=== PATIENT | female | born 1960 | race Caucasian/White ===

== ENCOUNTER 2017-04-01 14:21 | Emergency (ER) | payer BC, MEDICARE ==
[2017-04-01] MEDS ORDERED: Ranitidine 50 MG/2 ML SDV IV ONE (15:00)
[2017-04-01] MEDS ORDERED: amLODIPine 5 MG Tab PO ONE (15:54)
[2017-04-01 16:30] VITALS: BP 180/98
--- NOTE | 2017-04-01 17:50 | CR ---
DATE OF SERVICE: 04/01/17 CLINICAL DATA: chest pain AP PORTABLE CHEST Comparison is made to a prior exam dated 01/17/16. The patient has taken a very poor inspiration. The heart size is within normal limits. The lungs appear clear. No evidence of acute intrathoracic disease. [id number] [facility]
--- NOTE | 2017-04-03 22:09 | ER ---
CHIEF COMPLAINT: The patient entered the emergency room with chief complaint of chest pain. HISTORY OF PRESENT ILLNESS: The patient was transferred from clinic to the emergency room due to history of chest pain. She has had a negative coronary catheterization in the recent past. She did have a history of respiratory arrest and PEA. Her chest pain has been present for about three days. At first, it was associated with heartburn and epigastric discomfort. Today, she had 3 hours of chest pain, not associated with nausea, vomiting, dyspnea on exertion, shortness of breath, diaphoresis, palpitations, and her chest pain has resolved, however, her heartburn persists. REVIEW OF SYSTEMS: CONSTITUTIONAL: No fevers or weight changes. EYES: No vision changes. ENT: No congestion, sore throat, or ear pain. CARDIAC: Chest pressure but no palpitations, shortness of breath, dyspnea on exertion or diaphoresis. RESPIRATORY: No wheezing, coughing, or shortness of breath. GI: No diarrhea, constipation, rectal bleeding, nausea, or vomiting. : No dysuria. MUSCULOSKELETAL: No joint complaints. No decreased range of motion. No swollen joints. SKIN: No rashes or sores. NEUROLOGIC: No focal weakness or headache. PSYCH: Not currently depressed. PHYSICAL EXAMINATION: GENERAL: A well-developed, well-nourished, overweight female, alert and oriented x3. No acute distress. VITAL SIGNS: Upon admission show a blood pressure 174/88, pulse of 75, respirations 18, temperature 97.8, 98% saturated on room air. Her weight is 272 pounds. EYES: Show EOMI, PERRLA. ENT: Nose is clear. Throat is clear. TMs are normal bilaterally. NECK: Symmetrical. Nontender. No thyromegaly. LYMPH: Exam is negative. LUNGS: Clear and equal. HEART: Shows regular rate and rhythm. No murmurs, rubs, or gallops. No S3, no S4. ABDOMEN: Nontender without masses. Bowel sounds x4 are normal. No hepatosplenomegaly. Abdominal aorta is not prominent. There is an umbilical hernia that is easily reducible. ORTHOPEDIC: Shows normal gait, normal digits, no inflamed joints. No joints that have restrictions of motion. SKIN: Dry and warm. No rashes or sores. NEURO: Cranial nerves are intact. No focal motor, sensory, or cerebellar deficits. PSYCH: Exam is normal. ASSESSMENT: 1. Atypical chest pain. 2. Hypertension. 3. Uric acid crystals in the urine. 4. Chronic abdominal pain. PLAN: The patient will have a complete abdominal ultrasound. We will look for any kidney stones that might be present. We will obtain uric acid level and if elevated, start allopurinol. She should be sent to dietitian to go over diet and pH manipulation of her urine for prevention of kidney stones. In the ER, she was given IV Zantac for her epigastric discomfort. For her blood pressure, we will add Norvasc 5 mg a day and if necessary increase it on followup. The Norvasc will also take care of any possible coronary artery spasm that she may be getting. She does have sublingual nitroglycerin available to her. 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 She does have elevated cholesterol. We will start pravastatin 40 mg p.o. daily. She did not tolerate her simvastatin well due to myalgias. For her dyspepsia, I suggested she stay on ranitidine. She can take up to 300 mg b.i.d. because she does have issues with diabetes and hypertension and uric acid crystals in her urine, I would prefer to put her on medication such as the H2 blockers instead of a PPI to prevent any supplemental renal damage. The patient is discharged to home in good condition. She will follow up in clinic to review her progress. IRENE /[id number]
== END 2017-04-01 16:50 | disposition home or self-care (01) ==
LOC: LB.ED 14:21
DX: R07.89 Other chest pain (principal); R82.99 Other abnormal findings in urine; R10.9 Unspecified abdominal pain; G89.29 Other chronic pain; I10 Essential (primary) hypertension
CPT/HCPCS: 36415; 71010; 80053; 81001; 82150; 83690; 84478; 84484; 84550; 85025; 93005; 96374; 99285; A9270; J2780

== ENCOUNTER 2018-11-06 04:21 | Emergency (ER) | payer MEDICARE ==
[2018-11-06 04:37] VITALS: BP 155/70
[2018-11-06] MEDS ORDERED: Amoxicillin/Clavulanate K 875-125 MG Tab ONE (05:00)
[2018-11-06] MEDS ORDERED: cefTRIAXone 1 GM Vial IM ONE (05:43)
[2018-11-06] MEDS ORDERED: Ketorolac 60 MG/2 ML SDV IM ONE (05:43)
[2018-11-07] MEDS ORDERED: cefTRIAXone 1 GM Vial IM ONE (18:02)
[2018-11-07] MEDS ORDERED: cefTRIAXone 1 GM Vial ONE (18:13)
--- NOTE | 2018-11-12 08:18 | EDM.PDOC ---
ED HPI GENERAL MEDICAL PROBLEM - General Chief Complaint: General Stated Complaint: HEADACHE Time Seen by Provider: 11/06/18 04:45 Source of Information: Reports: Patient History Limitations: Reports: No Limitations - History of Present Illness INITIAL COMMENTS - FREE TEXT/NARRATIVE: This is a 57yo F with history of sebaceous cysts of the scalp and body. She has had multiple removed of the scalp. She comes in with a headache and believes it to be from the cyst. She states she tried to karen the cyst and now it hurts very much. Patient denies fever or other concerns. She states she has had this issue for the past week but did not call to make an appointment at clinic and the pain got worse over the past 2 days. 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: Other Medication(s) Other Treatments [employer]EVERAGE: Tramadol last at 10pm right side of head Pain Score (Numeric/FACES): 8 - Related Data Allergies Allergy/AdvReac Type Severity Reaction Status Date / Time lisinopril AdvReac Cough Verified 10/16/17 18:53 Home Meds: Home Meds Cyclobenzaprine HCl 10 mg PO QPM PRN 01/24/15 [History] Diclofenac Sodium [Voltaren] 50 mg PO TIDMEALS 07/26/17 [History] Losartan Potassium 25 mg PO DAILY 07/26/17 [History] Mirtazapine 30 mg PO QPM 07/26/17 [History] Nitroglycerin 0.4 mg SL ASDIRECTED PRN 07/26/17 [History] Pravastatin Sodium [Pravastatin (Pravachol)] 40 mg PO QPM 07/26/17 [History] Ranitidine HCl [Ranitidine] 150 mg PO BID PRN 07/26/17 [History] metFORMIN HCl [Metformin HCl] 1,000 mg PO BIDMEALS 07/26/17 [History] Past Medical History HEENT History: Reports: Allergic Rhinitis Cardiovascular History: Reports: Hypertension Respiratory History: Reports: Sleep Apnea Gastrointestinal History: Reports: GERD Genitourinary History: Reports: None Musculoskeletal History: Reports: Arthritis, Back Pain, Chronic, Fibromyalgia Neurological History: Reports: Other (See Below) Other Neuro History: restless leg syndrome Psychiatric History: Reports: Depression Endocrine/Metabolic History: Reports: Diabetes, Type II, Obesity/BMI 30+, Osteopenia - Past Surgical History Cardiovascular Surgical History: Reports: None GI Surgical History: Reports: None Social & Family History - Family History Family Medical History: Noncontributory - Caffeine Use Caffeine Use: Reports: Soda ED ROS GENERAL - Review of Systems Review Of Systems: ROS reveals no pertinent complaints other than HPI. - Physical Exam Exam: See Below Exam Limited By: No Limitations General Appearance: Alert, WD/WN, No Apparent Distress Ears: Normal External Exam Nose: Normal Inspection Throat/Mouth: Normal Inspection Head Exam: Other (masses of the scalp, only one with an excoriation lukasz, red area near the center of the cystic mass, no other warm but tender area of the skin 2x1cm) Neck: Normal Inspection Respiratory/Chest: No Respiratory Distress, Lungs Clear, Normal Breath Sounds Cardiovascular: Normal Peripheral Pulses, Regular Rate, Rhythm, No Edema GI/Abdominal: Normal Bowel Sounds, Soft, Non-Tender Course - Vital Signs Last Recorded V/S: Last Vital Signs Temp 37.3 C 11/06/18 04:32 Pulse 73 11/06/18 04:32 Resp 16 11/06/18 04:32 BP 155/70 H 11/06/18 04:32 Pulse Ox 95 11/06/18 04:32 - Orders/Labs/Meds Meds: Medications Discontinued Medications Generic Name Dose Route Start Last Admin Trade Name Freq PRN Reason Stop Dose Admin Amoxicillin/Clavulanate Potassium 20 tab 11/06/18 05:00 Augmentin 875 Mg/125 Mg .ROUTE 11/06/18 05:01 .STK-MED ONE Ceftriaxone Sodium 1 gm 11/06/18 05:43 11/06/18 05:47 Rocephin IM 11/06/18 05:44 1 gm ONETIME ONE Administration Ceftriaxone Sodium 1 gm 11/07/18 18:02 Rocephin IM 11/07/18 18:03 ONETIME ONE Ceftriaxone Sodium Confirm 11/07/18 18:13 Rocephin Administered 11/07/18 18:14 Dose 1 gm .ROUTE .STK-MED ONE Ketorolac Tromethamine 60 mg 11/06/18 05:43 11/06/18 05:46 Toradol IM 11/06/18 05:44 60 mg ONETIME ONE Administration Departure - Departure Time of Disposition: 05:30 Disposition: Home, Self-Care 01 Condition: Good Clinical Impression: Inflamed sebaceous cyst - Discharge Information Instructions: Amoxicillin; Clavulanic Acid tablets, Epidermal Cyst, Easy-to- Read Referrals: PCP,None [Primary Care Provider] - Forms: ED Department Discharge Additional Instructions: Finish the course of antibiotics and follow up in the clinic to get the cyst removed. Take food or milk with your antibiotic. Postpone the back procedure for Friday. - Problem List & Annotations (1) Inflamed sebaceous cyst SNOMED Code(s): 382649884 Code(s): L72.3 - SEBACEOUS CYST Status: Acute - Problem List Review Problem List Initiated/Reviewed/Updated: Yes - Assessment/Plan Plan: Patient counseled on care and management of possible start of an infected cyst. Discussed close monitoring and f/u in clinic for removal this week. Patient given antibiotics and discussed side effects and f/u. Patient to f/u as directed and as needed. Patient agrees to follow up in clinic this week for re- evaluation and management.
== END 2018-11-06 05:20 | disposition home or self-care (01) ==
LOC: LB.ED 04:21
DX: L72.3 Sebaceous cyst (principal); I10 Essential (primary) hypertension; E11.9 Type 2 diabetes mellitus without complications; K21.9 Gastro-esophageal reflux disease without esophagitis; Z79.84 Long term (current) use of oral hypoglycemic drugs; Z79.899 Other long term (current) drug therapy; Z88.8 Allergy status to other drugs, medicaments and biological substances
CPT/HCPCS: 10060; 96372; 99282-25; 99283; A9270-GY; J0696; J1885

== ENCOUNTER 2018-11-07 17:23 | Emergency (ER) | payer MEDICARE ==
[2018-11-07] MEDS ORDERED: cefTRIAXone 1 GM Vial IM ONE (18:01)
[2018-11-07] MEDS ORDERED: Lidocaine 1% 10 ML MDV ONE (18:20)
[2018-11-07] MEDS ORDERED: Acetaminophen/HYDROcodone 325-5 MG Tab ONE (18:30)
--- NOTE | 2018-11-07 20:19 | ER ---
DATE OF SERVICE: 11/07/2018 HISTORY OF PRESENT ILLNESS: A 57-year-old lady here with complaints of a cyst on top of her head that is getting worse. She was seen 2 days ago in the clinic and was put on Augmentin. She states that she does not feel it is helping. Her symptoms have gotten worse. The area of swelling and pain have started to spread and now she is having pain down the right side of her face to her jaw. The patient has not tried to drain this site. She states that she was planning on coming back into the clinic in a few days to have the cyst possibly removed. She has several other cysts, but they are not giving her trouble. OBJECTIVE: GENERAL APPEARANCE: The patient is awake and alert. No respiratory distress. She is uncomfortable because of the pain from the cyst. VITAL SIGNS: Reviewed. Temp is 99.1, blood pressure 155/70. HEENT: Examining the patient's scalp reveals the area of concern is on the right side of the patient's scalp in front of and well above the ear, right where the scalp starts to round off onto the top. The area is erythematous. There is obvious swelling here. The cyst itself looks like it is about 2 cm in diameter. There is some indurated area around it about another centimeter and half in all directions and then just tender skin radiating down to the patient's restorationist area. There is mild fluctuance with palpation. DIAGNOSIS: Infected cyst getting worse on antibiotics. TREATMENT PLAN: The site was swabbed with Betadine after which I injected 1% lidocaine locally for anesthesia. I gave this a few minutes to take effect after which using a 10 blade scalpel, I made a small incision centrally located and some thick green discharge was expressed. With mild pressure, I was able to express some more then it turned to just a bloody discharge. The patient held pressure against the site. After this for a few minutes, nursing staff will try to apply a dressing for tonight. Otherwise, she can just hold a gauze to her scalp with her hand, but I think a pressure dressing possibly with a circumferential wrap around the patient's head would be best. Rocephin 1 g will be given IM. She is to continue on the Augmentin. I will give her a few [place] tablets to take one tablet every 4-6 hours as needed for pain and she can apply warm packs to the area for 10 to 15 minutes every couple hours while awake into tomorrow. Followup is p.r.n. if her condition should get worse here in the emergency room. If her condition does get better, recheck should be with her primary care provider in the clinic next week. NING/JOHN /[id number] NORMA
== END 2018-11-07 18:31 | disposition home or self-care (01) ==
LOC: LB.ED 17:23
DX: L72.9 Follicular cyst of the skin and subcutaneous tissue, unspecified (principal)
CPT/HCPCS: 10060; 96372; 99282; 99282-25; A9270-GY; J0696; J2001

== ENCOUNTER 2018-12-13 09:49 | Emergency (ER) | payer MEDICARE | END 2018-12-13 10:25 | disposition home or self-care (01) | LOC: LB.ED 09:49 | DX: R29.90 Unspecified symptoms and signs involving the nervous system (principal) | CPT/HCPCS: 36415; 85025; 93005; 99283 ==

== ENCOUNTER → 2019-10-04 | Outpatient (CLI) | payer MEDICARE ==
--- NOTE | 2019-10-10 16:29 | MY ---
DATE OF SERVICE: 10/04/19 CLINICAL DATA: Encounter for screening mammogram for malignant neoplasm of breast BILATERAL MAMMOGRAMS: Comparison is made to a prior exam dated 10/05/18. The breasts are almost entirely fat. There is stable asymmetry. No change from the prior study. No evidence of malignancy. IMPRESSION: No evidence of malignancy. One year follow-up mammography is recommended. BI-RAD A: Mammogram - The breasts are almost entirely fatty ACR 1 - Negative Mammogram. The exam was reviewed with R2 CAD. [id number] [facility]
== END ==
LOC: LB.MAM 10:54
PROVIDERS: ATTEND Nurse Practitioner Family
DX: Z12.31 Encounter for screening mammogram for malignant neoplasm of breast (principal)
CPT/HCPCS: 77067

== ENCOUNTER → 2019-10-07 | Outpatient (CLI) | payer MEDICARE | LOC: LB.CLINIC 10:29 | PROVIDERS: ATTEND Nurse Practitioner Family | DX: N76.0 Acute vaginitis (principal) | CPT/HCPCS: 87210 ==

== ENCOUNTER 2019-12-29 04:44 | Emergency (ER) | payer MEDICARE ==
[2019-12-29 05:22] VITALS: BP 139/71; PULSE 63
[2019-12-29] MEDS ORDERED: methylPREDNISolone Sodium Succinate 125 MG/2 ML SDV IM ONE (05:32)
--- NOTE | 2019-12-29 06:17 | ER ---
HISTORY OF PRESENT ILLNESS: A 59-year-old lady here with complaints of a rash on her forehead and face that she has had since last Friday. She was seen on Friday , and diagnosed with rosacea. She was started on doxycycline. The rash has gotten worse. She is having more swelling and now her eye is swollen shut within the last few hours. The patient denies any shortness of breath or wheezing. She is not running a fever. She is not coughing. She states her rash is irritated and if she rubs it, it will be very uncomfortable, it also itches. The rash seems to go across the top of her head from the right side of her forehead to the left side of the back of her head and down her neck slightly. The patient was put on doxycycline on Friday, but she feels that her condition is slowly getting worse. OBJECTIVE: GENERAL APPEARANCE: The patient is awake and alert. No obvious distress. VITAL SIGNS: Reviewed as listed. HEENT: The patient has a blotchy erythematous rash with several raised areas encompassing the whole right side of her forehead and slightly across the midline of the forehead to the left side. Her eye is puffy and swollen shut. The eyelids are almost translucent. The rash goes down to the lower part of the patient's right facial cheek and there it stops. Examining the patient's scalp reveals she has a blotchy erythematous rash that goes throughout the scalp, but is most prominent on the left side of the back of her head and going down the left side of her neck down to just below the skull. There are no blisters, pustules, or scabs. The rash is not tender with light touch. The patient states she wants to scratch, but that has been painful. DIAGNOSIS: Urticaria type rash, Etiology unclear. TREATMENT PLAN: We will stop the doxycycline. I will give the patient Solu- Medrol 125 mg IM and start her on Benadryl 50 mg every 6 hours for 2 days. If she is feeling better over the next few hours, I will give her a script of oral prednisone that she can take and start it this afternoon. If her symptoms are not improving within the course of the next 8-10 hours, I want the patient to follow up for recheck later on this afternoon or no later than tomorrow. The patient has no further questions and agrees with the treatment plan. CRS/MODL /[id number] MTDD
== END 2019-12-29 05:45 | disposition home or self-care (01) ==
LOC: LB.ED 04:44
DX: L50.9 Urticaria, unspecified (principal)
CPT/HCPCS: 96372; 99282; 99283; J2930

== ENCOUNTER 2020-06-24 18:47 | Emergency (ER) | payer BC, MEDICARE, OTHER ==
[2020-06-24 20:08] VITALS: BP 156/65; PULSE 100
--- NOTE | 2020-06-24 20:32 | EDM.PDOC ---
ED HPI GENERAL MEDICAL PROBLEM - General Chief Complaint: Neurological Problem Stated Complaint: r/o kevinzure Time Seen by Provider: 06/24/20 19:50 Source of Information: Reports: Patient History Limitations: Reports: No Limitations - History of Present Illness INITIAL COMMENTS - FREE TEXT/NARRATIVE: Patient presents with concerns of COVID after a secondary possible exposure and an episode of chills and shaking last night. Patient had COVID testing in car and it is negative. She reports 6 months of bilateral hand tremors, but no neurological history. Last night she woke at 0100 with chills and shaking, she states this continued for 2 hours, she then took a warm shower and the shaking stopped. Denies any JACINTO, cough, ear pain, sore throat, known fevers, diaphoresis, CP, or SOB. She feels more tired today which prompted her ED visit. PMH of migraines without aura but does not follow with a neurologist. SHe is diabetic but did not check her blood sugar at that time, she doesn't feel that this episode was BS related. Headache Pain Score (Numeric/FACES): 4 - Related Data Allergies Allergy/AdvReac Type Severity Reaction Status Date / Time lisinopril AdvReac Cough Verified 06/24/20 20:03 Home Meds: Home Meds Cyclobenzaprine HCl 10 mg PO QPM PRN 01/24/15 [History] Losartan Potassium 25 mg PO DAILY 07/26/17 [History] Mirtazapine 15 mg PO QPM 07/26/17 [History] Nitroglycerin 0.4 mg SL ASDIRECTED PRN 07/26/17 [History] metFORMIN HCl [Metformin HCl] 1,000 mg PO BIDMEALS 07/26/17 [History] Metoprolol Succinate [Toprol Xl] 75 mg PO DAILY 06/24/20 [History] Pramipexole Di-HCl [Pramipexole ER] 1.5 mg PO DAILY 06/24/20 [History] Simvastatin 40 mg PO BEDTIME 06/24/20 [History] Venlafaxine HCl [Venlafaxine ER] 150 mg PO BID 06/24/20 [History] hydroCHLOROthiazide [Hydrochlorothiazide] 25 mg PO DAILY 06/24/20 [History] traMADol HCl [Tramadol HCl] 1 tab PO TID PRN 06/24/20 [History] Past Medical History HEENT History: Reports: Allergic Rhinitis Cardiovascular History: Reports: Hypertension Respiratory History: Reports: Sleep Apnea Gastrointestinal History: Reports: GERD Genitourinary History: Reports: None Musculoskeletal History: Reports: Arthritis, Back Pain, Chronic, Fibromyalgia Neurological History: Reports: Other (See Below) Other Neuro History: restless leg syndrome Psychiatric History: Reports: Depression Endocrine/Metabolic History: Reports: Diabetes, Type II, Obesity/BMI 30+, Osteopenia - Past Surgical History Cardiovascular Surgical History: Reports: None GI Surgical History: Reports: None Social & Family History - Family History Family Medical History: Noncontributory - Caffeine Use Caffeine Use: Reports: Coffee ED ROS GENERAL - Review of Systems Review Of Systems: See Below Constitutional: Reports: Chills, Fatigue. Denies: Night Sweats HEENT: Reports: No Symptoms Respiratory: Reports: No Symptoms, Cough Cardiovascular: Reports: No Symptoms, Lightheadedness Endocrine: Reports: No Symptoms GI/Abdominal: Reports: No Symptoms : Reports: No Symptoms Musculoskeletal: Reports: No Symptoms Skin: Reports: No Symptoms Neurological: Reports: No Symptoms. Denies: Confusion Psychiatric: Reports: No Symptoms Hematologic/Lymphatic: Reports: No Symptoms ED EXAM, GENERAL - Physical Exam Exam: See Below Exam Limited By: No Limitations General Appearance: Alert, No Apparent Distress Eye Exam: Bilateral Eye: Normal Inspection, PERRL Ears: Normal External Exam, Normal Canal, Normal TMs Ear Exam: Bilateral Ear: Auricle Normal, Canal Normal, TM normal Nose: Normal Inspection Throat/Mouth: Normal Inspection, Normal Lips, Normal Teeth, Normal Oropharynx, Normal Voice, No Airway Compromise Head: Atraumatic Neck: Normal Inspection, Non-Tender, Full Range of Motion Respiratory/Chest: No Respiratory Distress, Lungs Clear, Normal Breath Sounds Cardiovascular: Normal Peripheral Pulses, No Edema, No JVD, No Murmur, Tachycardia Peripheral Pulses: 3+: Radial (L), Radial (R), Posterior Tibial (L), Posterior Tibial (R), Dorsalis Pedis (L), Dorsalis Pedis (R) GI/Abdominal: Normal Bowel Sounds, Soft (Female) Exam: Deferred Rectal (Female) Exam: Deferred Back Exam: Normal Inspection, Full Range of Motion. No: CVA Tenderness (R), CVA Tenderness (L) Extremities: Normal Inspection, Normal Range of Motion, No Pedal Edema, Normal Capillary Refill Neurological: Alert, Oriented, CN II-XII Intact, Normal Gait, Normal Reflexes, No Motor/Sensory Deficits, Sensory/Motor Deficit Psychiatric: Normal Affect Skin Exam: Warm, Dry, Intact Lymphatic: No Adenopathy Course - Vital Signs Last Recorded V/S: Last Vital Signs Temp 96.8 F L 06/24/20 19:40 Pulse 100 06/24/20 19:40 Resp 16 06/24/20 19:40 BP 156/65 H 06/24/20 19:40 Pulse Ox 98 06/24/20 19:40 - Orders/Labs/Meds Labs: Laboratory Tests 06/24/20 Range/Units 18:55 COVID-19 (LUZ) Negative Departure - Departure Time of Disposition: 20:10 [facility]position: [facility] Condition: Good Clinical Impression: Shaking chills - Discharge Information *PRESCRIPTION DRUG MONITORING PROGRAM REVIEWED*: Not Applicable *COPY OF PRESCRIPTION DRUG MONITORING REPORT IN PATIENT CAROL: Not Applicable Instructions: Seizure, Adult, [id number] Forms: ED Department Discharge Additional Instructions: Monitor and record any seizure like activity that should occur. Follow up with Dr. León in clinic as planned, and discuss obtaining MRI of brain, as well as neurology consult. Should symptoms return, worsen, persist, return to ER for further evaluation as needed. Call with any questions. Sepsis Event Note (ED) - Focused Exam Vital Signs: Vital Signs Temp Pulse Resp BP Pulse Ox 06/24/20 19:40 96.8 F L 100 16 156/65 H 98
== END 2020-06-24 20:12 | disposition home or self-care (01) ==
LOC: LB.ED 18:47
DX: R68.83 Chills (without fever) (principal); I10 Essential (primary) hypertension; E11.9 Type 2 diabetes mellitus without complications; E66.9 Obesity, unspecified; F32.9 Major depressive disorder, single episode, unspecified; Z20.828 Contact with and (suspected) exposure to other viral communicable diseases; Z88.8 Allergy status to other drugs, medicaments and biological substances; Z79.899 Other long term (current) drug therapy
CPT/HCPCS: 99282; 99284; U0002

== ENCOUNTER 2020-07-01 18:10 | Observation (INO) | payer BC, MEDICARE ==
[2020-07-01] MEDS: Sodium Chloride 0.9% 500 ML IV ONE ×2 (19:00→20:10)
[2020-07-01] MEDS ORDERED: Acetaminophen 325 MG Tab PO ONE (19:17)
[2020-07-01] MEDS ORDERED: Acetaminophen 325 MG Tab ONE (19:27)
[2020-07-01] MEDS ORDERED: Potassium Chloride 20 MEQ Tab.ER PO ONE (19:53)
[2020-07-01] MEDS ORDERED: Potassium Chloride Riders 50 ML ONE (22:22)
[2020-07-01] MEDS: cefTRIAXone 1 GM in Sodium Chloride 0.9% 50 ML IV SCH (23:00)
[2020-07-01] MEDS ORDERED: Potassium Chloride Riders 10 MEQ in Premix Bag 1 BAG IV ONE (23:32)
[2020-07-01] MEDS: Acetaminophen 325 MG Tab PO ONE (23:38)
[2020-07-02] MEDS ORDERED: Acetaminophen 325 MG Tab ONE (00:37)
[2020-07-02] MEDS: Acetaminophen 325 MG Tab PO ONE ×2 (00:50→04:14)
[2020-07-02] MEDS ORDERED: Ketorolac 60 MG/2 ML SDV IVPUSH ONE (02:12)
[2020-07-02] MEDS ORDERED: Ondansetron 4 MG/2 ML SDV ONE (03:46)
[2020-07-02] MEDS ORDERED: Ondansetron 4 MG/2 ML SDV IVPUSH PRN (03:53)
[2020-07-02] MEDS ORDERED: traMADol 50 MG Tab ONE (09:57)
--- NOTE | 2020-07-02 10:01 | CR ---
Date of Service: 07/01/20 Clinical Data: cp, cough AP CHEST: Comparison is made to a prior exam dated 11/26/17. The patient has taken a poor inspiration. The heart size is normal. The lungs are clear. No pneumothorax. No pleural effusions. No evidence of acute intrathoracic disease. [id number] MTDD
[2020-07-02] MEDS ORDERED: Acetaminophen 500 MG Tab PO ONE (10:03)
[2020-07-02] MEDS ORDERED: traMADol 50 MG Tab PO ONE (10:03)
--- NOTE | 2020-07-02 13:16 | PCM.PN ---
- General Info Date of Service: 07/02/20 - Patient Data Vitals - Most Recent: Last Vital Signs Temp 38.7 C H 07/02/20 10:00 Pulse 92 07/02/20 08:00 Resp 18 07/02/20 08:00 BP 131/65 07/02/20 08:00 Pulse Ox 97 07/02/20 08:00 Weight - Most Recent: 120.837 kg Lab Results Last 24 Hours: Laboratory Results - last 24 hr 07/01/20 07/01/20 07/01/20 Range/Units 19:20 19: 19:20 WBC 7.3 (4.0-11.0) K/uL RBC 5.30 (3.80-5.80) M/uL Hgb 15.1 (11.5-16.5) g/dL Hct 44.7 (37.0-47.0) % MCV 84 (76-96) fL MCH 28.5 (27.0-32.0) pg MCHC 33.8 (31.0-35.0) g/dL RDW 13.3 (11.0-16.0) % Plt Count 204 (150-500) K/uL MPV 11.5 H (6.0-10.0) fL Neut % (Auto) 79.4 H (45.0-70.0) % Lymph % (Auto) 12.5 L (20.0-40.0) % Harrison % (Auto) 7.5 (3.0-10.0) % Eos % (Auto) 0.3 L (1.0-5.0) % Baso % (Auto) 0.3 (0.0-0.5) % Neut # (Auto) 5.80 (2.00-7.50) K/uL Lymph # (Auto) 0.91 L (1.50-4.00) K/uL Harrison # (Auto) 0.55 (0.20-0.80) K/uL Eos # (Auto) 0.02 L (0.04-0.40) K/uL Baso # (Auto) 0.02 (0.02-0.10) K/uL Sodium 134 L (136-145) mmol/L Potassium 2.8 L* (3.5-5.1) mmol/L Chloride 95 L (98-107) mmol/L Carbon Dioxide 34.5 H (21.0-32.0) mmol/L Anion Gap 7.3 (5.0-15.0) mmol/L BUN 11 D (8-26) mg/dL Creatinine 1.04 H D (0.55-1.02) mg/dL Est Cr Clr Drug Dosing 48.77 mL/min Estimated GFR (MDRD) 54 L (>60) MLS/MIN BUN/Creatinine Ratio 10.6 (6-25) Glucose 275 H (74-100) mg/dL Lactic Acid (0.4-2.0) mmol/L Calcium 9.0 (8.5-10.1) mg/dL Total Bilirubin 0.9 D (0.0-1.0) mg/dL AST 15 (15-37) U/L ALT 34 (12-78) U/L Alkaline Phosphatase 102 (46-116) U/L Troponin I < 0.017 (0.000-0.060) ng/mL Total Protein 7.1 (6.4-8.2) g/dL Albumin 3.1 L (3.4-5.0) g/dL Globulin 4.0 (2.2-4.2) g/dL Albumin/Globulin Ratio 0.8 (0.8-2.0) Urine Color Urine Appearance (CLEAR) Urine pH (5.0-8.0) Ur Specific Runge (1.003-1.030) Urine Protein (NEGATIVE) mg/dL Urine Glucose (UA) (NEGATIVE) mg/dL Urine Ketones (NEGATIVE) mg/dL Urine Occult Blood (NEGATIVE) Urine Nitrite (NEGATIVE) Urine Bilirubin (NEGATIVE) Urine Urobilinogen (0.2-1.0) E.U./dL Ur Leukocyte Esterase (NEGATIVE) Urine RBC /HPF Urine WBC /HPF Ur Epithelial Cells /HPF Urine Bacteria /HPF SARS CoV-2 RNA Rapid LUZ 07/01/20 07/01/20 07/01/20 Range/Units 19:25 19:40 20:10 WBC (4.0-11.0) K/uL RBC (3.80-5.80) M/uL Hgb (11.5-16.5) g/dL Hct (37.0-47.0) % MCV (76-96) fL MCH (27.0-32.0) pg MCHC (31.0-35.0) g/dL RDW (11.0-16.0) % Plt Count (150-500) K/uL MPV (6.0-10.0) fL Neut % (Auto) (45.0-70.0) % Lymph % (Auto) (20.0-40.0) % Harrison % (Auto) (3.0-10.0) % Eos % (Auto) (1.0-5.0) % Baso % (Auto) (0.0-0.5) % Neut # (Auto) (2.00-7.50) K/uL Lymph # (Auto) (1.50-4.00) K/uL Harrison # (Auto) (0.20-0.80) K/uL Eos # (Auto) (0.04-0.40) K/uL Baso # (Auto) (0.02-0.10) K/uL Sodium (136-145) mmol/L Potassium (3.5-5.1) mmol/L Chloride (98-107) mmol/L Carbon Dioxide (21.0-32.0) mmol/L Anion Gap (5.0-15.0) mmol/L BUN (8-26) mg/dL Creatinine (0.55-1.02) mg/dL Est Cr Clr Drug Dosing mL/min Estimated GFR (MDRD) (>60) MLS/MIN BUN/Creatinine Ratio (6-25) Glucose (74-100) mg/dL Lactic Acid 1.8 (0.4-2.0) mmol/L Calcium (8.5-10.1) mg/dL Total Bilirubin (0.0-1.0) mg/dL AST (15-37) U/L ALT (12-78) U/L Alkaline Phosphatase (46-116) U/L Troponin I (0.000-0.060) ng/mL Total Protein (6.4-8.2) g/dL Albumin (3.4-5.0) g/dL Globulin (2.2-4.2) g/dL Albumin/Globulin Ratio (0.8-2.0) Urine Color Yellow Urine Appearance Clear (CLEAR) Urine pH 6.0 (5.0-8.0) Ur Specific Runge >= 1.030 (1.003-1.030) Urine Protein 30 H (NEGATIVE) mg/dL Urine Glucose (UA) Negative (NEGATIVE) mg/dL Urine Ketones Trace H (NEGATIVE) mg/dL Urine Occult Blood Trace-intact H (NEGATIVE) Urine Nitrite Negative (NEGATIVE) Urine Bilirubin Small H (NEGATIVE) Urine Urobilinogen 0.2 (0.2-1.0) E.U./dL Ur Leukocyte Esterase Negative (NEGATIVE) Urine RBC 5-10 H /HPF Urine WBC Packed H /HPF Ur Epithelial Cells Few /HPF Urine Bacteria Few /HPF SARS CoV-2 RNA Rapid LUZ Negative 07/02/20 07/02/20 Range/Units 08:40 11:12 WBC (4.0-11.0) K/uL RBC (3.80-5.80) M/uL Hgb (11.5-16.5) g/dL Hct (37.0-47.0) % MCV (76-96) fL MCH (27.0-32.0) pg MCHC (31.0-35.0) g/dL RDW (11.0-16.0) % Plt Count (150-500) K/uL MPV (6.0-10.0) fL Neut % (Auto) (45.0-70.0) % Lymph % (Auto) (20.0-40.0) % Harrison % (Auto) (3.0-10.0) % Eos % (Auto) (1.0-5.0) % Baso % (Auto) (0.0-0.5) % Neut # (Auto) (2.00-7.50) K/uL Lymph # (Auto) (1.50-4.00) K/uL Harrison # (Auto) (0.20-0.80) K/uL Eos # (Auto) (0.04-0.40) K/uL Baso # (Auto) (0.02-0.10) K/uL Sodium 136 (136-145) mmol/L Potassium 3.5 D (3.5-5.1) mmol/L Chloride 96 L (98-107) mmol/L Carbon Dioxide 33.2 H (21.0-32.0) mmol/L Anion Gap 10.3 (5.0-15.0) mmol/L BUN 12 (8-26) mg/dL Creatinine 1.08 H (0.55-1.02) mg/dL Est Cr Clr Drug Dosing 46.97 mL/min Estimated GFR (MDRD) 52 L (>60) MLS/MIN BUN/Creatinine Ratio 11.1 (6-25) Glucose 269 H (74-100) mg/dL Lactic Acid (0.4-2.0) mmol/L Calcium 8.3 L (8.5-10.1) mg/dL Total Bilirubin 0.8 (0.0-1.0) mg/dL AST 33 (15-37) U/L ALT 38 (12-78) U/L Alkaline Phosphatase 108 (46-116) U/L Troponin I < 0.017 (0.000-0.060) ng/mL Total Protein 6.7 (6.4-8.2) g/dL Albumin 2.7 L (3.4-5.0) g/dL Globulin 4.0 (2.2-4.2) g/dL Albumin/Globulin Ratio 0.7 L (0.8-2.0) Urine Color Urine Appearance (CLEAR) Urine pH (5.0-8.0) Ur Specific Runge (1.003-1.030) Urine Protein (NEGATIVE) mg/dL Urine Glucose (UA) (NEGATIVE) mg/dL Urine Ketones (NEGATIVE) mg/dL Urine Occult Blood (NEGATIVE) Urine Nitrite (NEGATIVE) Urine Bilirubin (NEGATIVE) Urine Urobilinogen (0.2-1.0) E.U./dL Ur Leukocyte Esterase (NEGATIVE) Urine RBC /HPF Urine WBC /HPF Ur Epithelial Cells /HPF Urine Bacteria /HPF SARS CoV-2 RNA Rapid LUZ Med Orders - Current: Current Medications Ceftriaxone Sodium 1 gm/ (Sodium Chloride) 50 mls @ 200 mls/hr IV Q24H [facility] Last Admin: 07/01/20 23:00 Dose: 200 mls/hr Documented by: Ondansetron HCl (Zofran) 4 mg IVPUSH Q4H PRN PRN Reason: Nausea/Vomiting Last Admin: 07/02/20 03:50 Dose: 4 mg Documented by: Discontinued Medications Acetaminophen (Tylenol) 650 mg PO NOW ONE Stop: 07/01/20 19:18 Last Admin: 07/01/20 19:19 Dose: 650 mg Documented by: Acetaminophen (Tylenol) Confirm Administered Dose 650 mg .ROUTE .STK-MED ONE Stop: 07/01/20 19:28 Last Admin: 07/01/20 19:34 Dose: Not Given Documented by: Acetaminophen (Tylenol) 325 mg PO NOW ONE Stop: 07/01/20 22:29 Last Admin: 07/02/20 04:14 Dose: Not Given Documented by: Acetaminophen (Tylenol) Confirm Administered Dose 325 mg .ROUTE .STK-MED ONE Stop: 07/02/20 00:38 Last Admin: 07/02/20 03:25 Dose: Not Given Documented by: Acetaminophen (Tylenol Extra Strength) 1,000 mg PO NOW ONE Stop: 07/02/20 10:04 Last Admin: 07/02/20 10:15 Dose: 1,000 mg Documented by: Sodium Chloride (Normal Saline) 500 mls @ 500 mls/hr IV .BOLUS ONE Stop: 07/01/20 19:38 Last Admin: 07/01/20 20:10 Dose: 500 mls/hr Documented by: Potassium Chloride (Kcl 10 Meq In Water 50 Ml) Confirm Administered Dose 50 mls @ as directed .ROUTE .STK-MED ONE Stop: 07/01/20 22:23 Last Admin: 07/01/20 23:34 Dose: Not Given Documented by: Potassium Chloride 10 meq/ (Premix) 50 mls @ 25 mls/hr IV ONETIME ONE Stop: 07/02/20 01:31 Last Admin: 07/01/20 23:38 Dose: 25 mls/hr Documented by: Ketorolac Tromethamine (Toradol) 15 mg IVPUSH ONETIME ONE Stop: 07/02/20 02:13 Last Admin: 07/02/20 04:09 Dose: 15 mg Documented by: Ondansetron HCl (Zofran) Confirm Administered Dose 4 mg .ROUTE .STK-MED ONE Stop: 07/02/20 03:47 Last Admin: 07/02/20 04:10 Dose: Not Given Documented by: Potassium Chloride (Klor-Con M20) 40 meq PO ONETIME ONE Stop: 07/01/20 19:54 Last Admin: 07/01/20 20:03 Dose: 40 meq Documented by: Tramadol HCl (Ultram) Confirm Administered Dose 50 mg .ROUTE .STK-MED ONE Stop: 07/02/20 09:58 Last Admin: 07/02/20 10:28 Dose: Not Given Documented by: Tramadol HCl (Ultram) 50 mg PO ONETIME ONE Stop: 07/02/20 10:04 Last Admin: 07/02/20 10:03 Dose: 50 mg Documented by: Sepsis Event Note - Evaluation Sepsis Screening Result: Sepsis Risk - Focused Exam Vital Signs: Vital Signs Temp Pulse Resp BP Pulse Ox 07/02/20 10:00 38.7 C H 07/02/20 08:00 36.7 C 92 18 131/65 97 07/02/20 04:12 37.7 C 128 H 18 132/82 91 L 07/02/20 02:26 36.6 C 115 H 18 152/76 H 97 - Problem List & Annotations (1) Atypical chest pain SNOMED Code(s): 614207614 Code(s): R07.89 - OTHER CHEST PAIN Status: Acute Current Visit: No Onset Date: ~04/01/17 Annotation/Comment:: 04/01/17 - 1. Atypical chest pain, 2. Hypertension, 3. Uric acid crystals in the urine, 4. Chronic abdominal pain. (2) Hypertension SNOMED Code(s): 68585277 Code(s): I10 - ESSENTIAL (PRIMARY) HYPERTENSION Status: Acute Current Visit: No Onset Date: ~04/01/17 Annotation/Comment:: 04/01/17 - 1. Atypical chest pain, 2. Hypertension, 3. Uric acid crystals in the urine, 4. Chronic abdominal pain. - Problem List Review Problem List Initiated/Reviewed/Updated: Yes - Assessment Assessment:: Chest pain - Plan Plan:: [facility] Hospitalist CONSULTATION NOTE: eHospitalist was contacted by Leeanne Rayo NP with request of consultation for rounding support: Reason for consult: Rounding support HPI: Patient is a 59-year-old female with pmh of HTN, HLD, diabetes, depression/anxiety who was admitted last night for fevers, chest pain. Patient reports that she presented to the ED with complaints of chest pains, substernal, radiating to her right arm, 8 out of 10, worse with deep breaths, no other aggravating factors, no relieving factors. Was prescribed nitro in the past but does not know when or how to take it. Has not taken any aspirin or nitro at home. Says she has had chest pain on and off for several years, sometimes radiating to her back. Says the pain was not any different from her previous pain. Says she was seen by a chiropractor who felt that her pain was originating from her back muscles. Says she had some palpitations, dizziness and vertigo which are both chronic, shortness of breath that is new, says she was sweaty last night. Also had nausea and one episode of vomiting. Also reports cough for a week that is nonproductive. Endorses fevers and chills for 1 week, T-max at home was 100 F. Denies any diarrhea, says she has some abdominal discomfort and lower extremity edema. In regards to her heart history, patient reports that her heart stopped 4 years ago-says that was when she was in the hospital, says she received Narcan and got better, did not have any chest compressions or shocks. Had been following with a surgical pathologist to make sure her " heart was still working". Reports having an angiogram that was normal. Denies any history of heart failure. Says she needs a valve replacement for " 1 valve in the lower left". Unable to recall who her primary surgical pathologist is. Work-up in the ED included a normal WBC and hemoglobin, sodium 134, potassium 2.8 on admission (3.5 this morning), creatinine 1.04, normal lactic acid, normal LFTs, troponin X2 negative.UA with packed WBCs, 5-10 RBCs, negative leukocyte esterase, negative nitrites. SARS-CoV-2 RNA rapid test negative. Chest x-ray that was negative for acute intrathoracic disease. EKG from 07/02 with prolonged QTC 495ms, sinus rhythm, no ST or T wave changes suggestive of ischemia. Patient was started on IV Rocephin for UTI, given 40 mEq of oral potassium and 10 mEq IV potassium for hypokalemia. Home Medications: Cyclobenzaprine, hydrochlorothiazide, losartan, metformin, mirtazapine, pramipexole, simvastatin, metoprolol, tramadol, venlafaxine Pertinent Medical History: HTN, HLD, diabetes, depression/anxiety Pertinent Social History: Does not smoke, denies alcohol use, denies drug use. Exam (performed via interactive video with assistance of bedside nurse): General: alert, cooperative, no acute distress HEENT: PERRLA, oral mucosa pink and moist without erythema Lungs: Clear to auscultation bilaterally without crackles or wheezing CV: Regular rate and rhythm with 3-4 out of 5 systolic murmur Abd: Denies tenderness, does not exhibit signs of pain with palpation done by bedside nurse Ext: No pitting edema noted Skin: No rashes, 2 small bruises on forearms near recent blood draw sites Neuro: Alert and oriented x3, moving all extremities Labs and imaging as noted in HPI Assessment and Plan: Patient is a 59-year-old female with pmh of HTN, HLD, diabetes, depression/anxiety whom I was asked to see in consultation for rounding support. Patient was admitted last night for fevers, chest pain. Unable to see the EKG that was done on presentation to the ED repeat EKG from 07/02 was negative for acute ischemic changes. Troponin x2 have been negative so far. Pending repeat troponin. Patient denies chest pain at this time. Unclear what cardiac history patient has but does have a systolic murmur. #Chest pain -On and off, atypical. Would still warrant ischemic evaluation, recommend cardiology consult outpatient unless inpatient cardiology consultation is available. -Reviewed telemetry strips from last night, does show abnormalities with acute right QRS but this is only one lead -Follow-up repeat troponin. -Obtain repeat EKG with chest pain. -Continue telemetry -Correct electrolytes -Continue beta-olga, antihypertensives, statin -Hold off on Mirtazapine in the setting of prolonged Qtc. Avoid IV Zofran or phenergan for nausea. -Repeat EKG tomorrow to f/u of QTc prolongation. #Pyuria: Patient was started on IV Rocephin for possible UTI, subjective fevers. F/u urine cultures and tailor antibiotics accordingly. #Nausea and vomiting: avoid zofran or phenergan until Qtc improves. #HTN: Resume home HCTZ, losartan, metoprolol #HLD: Resume home simvastatin #Chronic back pain: Cyclobenzaprine and tramadol as needed #Depression, anxiety: Can resume venlafaxine. hold mirtazapine. Thank you for including [facility] in the patients care. This service is available for further assistance as requested by your care team by calling [phone].
[2020-07-02] MEDS ORDERED: Acetaminophen 500 MG Tab PO PRN (16:05)
[2020-07-02] MEDS ORDERED: metFORMIN 500 MG Tab PO SCH (17:00)
[2020-07-02] MEDS ORDERED: Cyclobenzaprine 10 MG Tab PO PRN (17:35)
[2020-07-02] MEDS: traMADol 50 MG Tab PO PRN ×2 (17:53→23:28)
--- NOTE | 2020-07-02 19:40 | PCM.SN.2 ---
- Free Text/Narrative Note: Due to patient's flucuating HR and EKG, she will be transfered to [place] for cardiology consult. Patient is agreeable to plan. Will have CT PE prior to transport. CT PE negative.
[2020-07-02] MEDS: cefTRIAXone 1 GM in Sodium Chloride 0.9% 50 ML IV SCH (23:27)
[2020-07-03 00:24] VITALS: BP 142/68; PULSE 113
--- NOTE | 2020-07-03 14:37 | CT ---
DATE OF SERVICE: 07/03/2020 CLINICAL DATA: Rule out PE Enhanced chest CT: Multi slice acquisition through the chest with IV contrast was performed. No evidence of PE. No pneumothorax. No pleural effusions. No aortic aneurysm or dissection. There are atelectatic changes in the dependent portion of both lungs. There are 2 subpleural nodules noted in the right upper lobe measuring 4 and 3 mm. The lungs are otherwise clear. If the patient is high risk consider 12 months follow-up. The heart size is normal. No significant pericardial effusion. There is subtle fat stranding adjacent to the aortic arch and proximal great vessels. Significance uncertain. Consider vasculitis. No hilar or mediastinal adenopathy. There is mild diffuse fatty infiltration of the liver. There is a 2.9 cm low- density lesion within upper pole of the left kidney. It does appear to have a mildly thickened wall. Ultrasound is recommended to further evaluate it. Impression: Negative for PE. Other findings as discussed above. MTDD
--- NOTE | 2020-07-06 12:18 | EDM.PDOC ---
ED HPI GENERAL MEDICAL PROBLEM - General Chief Complaint: General Stated Complaint: SOB Time Seen by Provider: 07/01/20 18:12 - History of Present Illness INITIAL COMMENTS - FREE TEXT/NARRATIVE: patient presents with 1 week history of fever, chills, cough, intermittent CP (not any different than her chronic CP of 6 months), SOB, and night sweats. Denies any diarrhea, or urinary symptoms. The chest pain increases with a deep breath or cough, but is nonproductive. had an episode of vomiting, but denies any abd pain or nausea at this time. Location: Reports: Chest Quality: Reports: Same as Previous Episode Severity: Mild Improves with: Reports: None Worsens with: Reports: Breathing, Movement Associated Symptoms: Reports: Chest Pain, Diaphoresis, Fever/Chills, Nausea/Vomiting, Shortness of Breath Headache Pain Score (Numeric/FACES): 5 - Related Data Allergies Allergy/AdvReac Type Severity Reaction Status Date / Time lisinopril AdvReac Cough Verified 06/24/20 20:03 Home Meds: Home Meds Cyclobenzaprine HCl 10 mg PO QPM PRN 01/24/15 [History] Losartan Potassium 25 mg PO DAILY 07/26/17 [History] Mirtazapine 15 mg PO QPM 07/26/17 [History] Nitroglycerin 0.4 mg SL ASDIRECTED PRN 07/26/17 [History] metFORMIN HCl [Metformin HCl] 1,000 mg PO BIDMEALS 07/26/17 [History] Metoprolol Succinate [Toprol Xl] 75 mg PO DAILY 06/24/20 [History] Pramipexole Di-HCl [Pramipexole ER] 1.5 mg PO DAILY 06/24/20 [History] Simvastatin 40 mg PO BEDTIME 06/24/20 [History] Venlafaxine HCl [Venlafaxine ER] 150 mg PO BID 06/24/20 [History] hydroCHLOROthiazide [Hydrochlorothiazide] 25 mg PO DAILY 06/24/20 [History] traMADol HCl [Tramadol HCl] 1 tab PO TID PRN 06/24/20 [History] Past Medical History HEENT History: Reports: Allergic Rhinitis Cardiovascular History: Reports: Hypertension Respiratory History: Reports: Sleep Apnea Gastrointestinal History: Reports: GERD Genitourinary History: Reports: None Musculoskeletal History: Reports: Arthritis, Back Pain, Chronic, Fibromyalgia Neurological History: Reports: Other (See Below) Other Neuro History: restless leg syndrome Psychiatric History: Reports: Depression Endocrine/Metabolic History: Reports: Diabetes, Type II, Obesity/BMI 30+, Osteopenia - Past Surgical History Cardiovascular Surgical History: Reports: None GI Surgical History: Reports: None Social & Family History - Family History Family Medical History: Noncontributory - Tobacco Use Smoking Status *Q: Never Smoker Second Hand Smoke Exposure: No - Caffeine Use Caffeine Use: Reports: Soda - Recreational Drug Use Recreational Drug Use: No ED ROS GENERAL - Review of Systems Review Of Systems: See Below Constitutional: Reports: Fever, Chills, Night Sweats, Diaphoresis HEENT: Reports: No Symptoms Respiratory: Reports: Shortness of Breath Cardiovascular: Reports: Chest Pain Endocrine: Reports: No Symptoms GI/Abdominal: Reports: Vomiting : Reports: No Symptoms Musculoskeletal: Reports: No Symptoms Skin: Reports: No Symptoms Neurological: Reports: No Symptoms Psychiatric: Reports: No Symptoms ED EXAM, GENERAL - Physical Exam Exam: See Below Exam Limited By: No Limitations General Appearance: Alert, No Apparent Distress Eye Exam: Bilateral Eye: PERRL Ears: Normal External Exam Nose: Normal Inspection Throat/Mouth: Normal Inspection, Normal Oropharynx, Normal Voice Head: Atraumatic Neck: Normal Inspection, Full Range of Motion Respiratory/Chest: No Respiratory Distress, Lungs Clear, Normal Breath Sounds, No Accessory Muscle Use. No: Respiratory Distress, Crackles, Wheezing Cardiovascular: Normal Peripheral Pulses, Regular Rate, Rhythm, No Edema, No JVD, Systolic Murmur GI/Abdominal: Normal Bowel Sounds, Soft, Non-Tender (Female) Exam: Deferred Rectal (Female) Exam: Deferred Back Exam: Normal Inspection Extremities: Normal Inspection, Normal Range of Motion, No Pedal Edema, Normal Capillary Refill Neurological: Alert, Oriented, Normal Cognition, Normal Gait Psychiatric: Normal Affect, Normal Mood Course - Vital Signs Last Recorded V/S: Last Vital Signs Temp 97.6 F 07/03/20 00:23 Pulse 113 H 07/03/20 00:23 Resp 18 07/03/20 00:23 BP 142/68 H 07/03/20 00:23 Pulse Ox 92 L 07/03/20 00:23 - Orders/Labs/Meds Labs: Laboratory Tests 07/01/20 07/01/20 07/01/20 Range/Units 17:19 19:20 19:20 WBC 7.3 (4.0-11.0) K/uL RBC 5.30 (3.80-5.80) M/uL Hgb 15.1 (11.5-16.5) g/dL Hct 44.7 (37.0-47.0) % MCV 84 (76-96) fL MCH 28.5 (27.0-32.0) pg MCHC 33.8 (31.0-35.0) g/dL RDW 13.3 (11.0-16.0) % Plt Count 204 (150-500) K/uL MPV 11.5 H (6.0-10.0) fL Neut % (Auto) 79.4 H (45.0-70.0) % Lymph % (Auto) 12.5 L (20.0-40.0) % [place] % (Auto) 7.5 (3.0-10.0) % Eos % (Auto) 0.3 L (1.0-5.0) % Baso % (Auto) 0.3 (0.0-0.5) % Neut # (Auto) 5.80 (2.00-7.50) K/uL Lymph # (Auto) 0.91 L (1.50-4.00) K/uL Kem[place] # (Auto) 0.55 (0.20-0.80) K/uL Eos # (Auto) 0.02 L (0.04-0.40) K/uL Baso # (Auto) 0.02 (0.02-0.10) K/uL Sodium 134 L (136-145) mmol/L Potassium 2.8 L* (3.5-5.1) mmol/L Chloride 95 L (98-107) mmol/L Carbon Dioxide 34.5 H (21.0-32.0) mmol/L Anion Gap 7.3 (5.0-15.0) mmol/L BUN 11 D (8-26) mg/dL Creatinine 1.04 H D (0.55-1.02) mg/dL Est Cr Clr Drug Dosing 48.77 mL/min Estimated GFR (MDRD) 54 L (>60) MLS/MIN BUN/Creatinine Ratio 10.6 (6-25) Glucose 275 H (74-100) mg/dL POC Glucose 241 H (74-110) mg/dL Lactic Acid (0.4-2.0) mmol/L Calcium 9.0 (8.5-10.1) mg/dL Total Bilirubin 0.9 D (0.0-1.0) mg/dL AST 15 (15-37) U/L ALT 34 (12-78) U/L Alkaline Phosphatase 102 (46-116) U/L Troponin I (0.000-0.060) ng/mL Total Protein 7.1 (6.4-8.2) g/dL Albumin 3.1 L (3.4-5.0) g/dL Globulin 4.0 (2.2-4.2) g/dL Albumin/Globulin Ratio 0.8 (0.8-2.0) Urine Color Urine Appearance (CLEAR) Urine pH (5.0-8.0) Ur Specific [place] (1.003-1.030) Urine Protein (NEGATIVE) mg/dL Urine Glucose (UA) (NEGATIVE) mg/dL Urine Ketones (NEGATIVE) mg/dL Urine Occult Blood (NEGATIVE) Urine Nitrite (NEGATIVE) Urine Bilirubin (NEGATIVE) Urine Urobilinogen (0.2-1.0) E.U./dL Ur Leukocyte Esterase (NEGATIVE) Urine RBC /HPF Urine WBC /HPF Ur Epithelial Cells /HPF Urine Bacteria /HPF SARS CoV-2 RNA Rapid LUZ 07/01/20 07/01/20 07/01/20 Range/Units 19:20 19:25 19:40 WBC (4.0-11.0) K/uL RBC (3.80-5.80) M/uL Hgb (11.5-16.5) g/dL Hct (37.0-47.0) % MCV (76-96) fL MCH (27.0-32.0) pg MCHC (31.0-35.0) g/dL RDW (11.0-16.0) % Plt Count (150-500) K/uL MPV (6.0-10.0) fL Neut % (Auto) (45.0-70.0) % Lymph % (Auto) (20.0-40.0) % Kemper % (Auto) (3.0-10.0) % Eos % (Auto) (1.0-5.0) % Baso % (Auto) (0.0-0.5) % Neut # (Auto) (2.00-7.50) K/uL Lymph # (Auto) (1.50-4.00) K/uL Kemper # (Auto) (0.20-0.80) K/uL Eos # (Auto) (0.04-0.40) K/uL Baso # (Auto) (0.02-0.10) K/uL Sodium (136-145) mmol/L Potassium (3.5-5.1) mmol/L Chloride (98-107) mmol/L Carbon Dioxide (21.0-32.0) mmol/L Anion Gap (5.0-15.0) mmol/L BUN (8-26) mg/dL Creatinine (0.55-1.02) mg/dL Est Cr Clr Drug Dosing mL/min Estimated GFR (MDRD) (>60) MLS/MIN BUN/Creatinine Ratio (6-25) Glucose (74-100) mg/dL POC Glucose (74-110) mg/dL Lactic Acid 1.8 (0.4-2.0) mmol/L Calcium (8.5-10.1) mg/dL Total Bilirubin (0.0-1.0) mg/dL AST (15-37) U/L ALT (12-78) U/L Alkaline Phosphatase (46-116) U/L Troponin I < 0.017 (0.000-0.060) ng/mL Total Protein (6.4-8.2) g/dL Albumin (3.4-5.0) g/dL Globulin (2.2-4.2) g/dL Albumin/Globulin Ratio (0.8-2.0) Urine Color Urine Appearance (CLEAR) Urine pH (5.0-8.0) Ur Specific [place] (1.003-1.030) Urine Protein (NEGATIVE) mg/dL Urine Glucose (UA) (NEGATIVE) mg/dL Urine Ketones (NEGATIVE) mg/dL Urine Occult Blood (NEGATIVE) Urine Nitrite (NEGATIVE) Urine Bilirubin (NEGATIVE) Urine Urobilinogen (0.2-1.0) E.U./dL Ur Leukocyte Esterase (NEGATIVE) Urine RBC /HPF Urine WBC /HPF Ur Epithelial Cells /HPF Urine Bacteria /HPF SARS CoV-2 RNA Rapid LUZ Negative 07/01/20 Range/Units 20:10 WBC (4.0-11.0) K/uL RBC (3.80-5.80) M/uL Hgb (11.5-16.5) g/dL Hct (37.0-47.0) % MCV (76-96) fL MCH (27.0-32.0) pg MCHC (31.0-35.0) g/dL RDW (11.0-16.0) % Plt Count (150-500) K/uL MPV (6.0-10.0) fL Neut % (Auto) (45.0-70.0) % Lymph % (Auto) (20.0-40.0) % Kemper % (Auto) (3.0-10.0) % Eos % (Auto) (1.0-5.0) % Baso % (Auto) (0.0-0.5) % Neut # (Auto) (2.00-7.50) K/uL Lymph # (Auto) (1.50-4.00) K/uL Kemper # (Auto) (0.20-0.80) K/uL Eos # (Auto) (0.04-0.40) K/uL Baso # (Auto) (0.02-0.10) K/uL Sodium (136-145) mmol/L Potassium (3.5-5.1) mmol/L Chloride (98-107) mmol/L Carbon Dioxide (21.0-32.0) mmol/L Anion Gap (5.0-15.0) mmol/L BUN (8-26) mg/dL Creatinine (0.55-1.02) mg/dL Est Cr Clr Drug Dosing mL/min Estimated GFR (MDRD) (>60) MLS/MIN BUN/Creatinine Ratio (6-25) Glucose (74-100) mg/dL POC Glucose (74-110) mg/dL Lactic Acid (0.4-2.0) mmol/L Calcium (8.5-10.1) mg/dL Total Bilirubin (0.0-1.0) mg/dL AST (15-37) U/L ALT (12-78) U/L Alkaline Phosphatase (46-116) U/L Troponin I (0.000-0.060) ng/mL Total Protein (6.4-8.2) g/dL Albumin (3.4-5.0) g/dL Globulin (2.2-4.2) g/dL Albumin/Globulin Ratio (0.8-2.0) Urine Color Yellow Urine Appearance Clear (CLEAR) Urine pH 6.0 (5.0-8.0) Ur Specific [place] >= 1.030 (1.003-1.030) Urine Protein 30 H (NEGATIVE) mg/dL Urine Glucose (UA) Negative (NEGATIVE) mg/dL Urine Ketones Trace H (NEGATIVE) mg/dL Urine Occult Blood Trace-intact H (NEGATIVE) Urine Nitrite Negative (NEGATIVE) Urine Bilirubin Small H (NEGATIVE) Urine Urobilinogen 0.2 (0.2-1.0) E.U./dL Ur Leukocyte Esterase Negative (NEGATIVE) Urine RBC 5-10 H /HPF Urine WBC Packed H /HPF Ur Epithelial Cells Few /HPF Urine Bacteria Few /HPF SARS CoV-2 RNA Rapid LUZ Meds: Medications Discontinued Medications Generic Name Dose Route Start Last Admin Trade Name Freq PRN Reason Stop Dose Admin Acetaminophen 650 mg 07/01/20 19:17 07/01/20 19:19 Tylenol PO 07/01/20 19:18 650 mg NOW ONE Administration Acetaminophen Confirm 07/01/20 19:27 07/01/20 19:34 Tylenol Administered 07/01/20 19:28 Not Given Dose 650 mg .ROUTE .STK-MED ONE Acetaminophen 325 mg 07/01/20 22:28 07/02/20 04:14 Tylenol PO 07/01/20 22:29 Not Given NOW ONE Acetaminophen Confirm 07/02/20 00:37 07/02/20 03:25 Tylenol Administered 07/02/20 00:38 Not Given Dose 325 mg .ROUTE .STK-MED ONE Acetaminophen 1,000 mg 07/02/20 10:03 07/02/20 10:15 Tylenol Extra Strength PO 07/02/20 10:04 1,000 mg NOW ONE Administration Acetaminophen 1,000 mg 07/02/20 16:05 07/02/20 16:28 Tylenol Extra Strength PO 1,000 mg Q6H PRN Administration Fever Cyclobenzaprine HCl 10 mg 07/02/20 17:35 Flexeril PO QPM PRN Muscle Spasm Sodium Chloride 500 mls @ 500 mls/hr 07/01/20 18:39 07/01/20 20:10 Normal Saline IV 07/01/20 19:38 500 mls/hr .BOLUS ONE Administration Ceftriaxone Sodium 1 gm/ 50 mls @ 200 mls/hr 07/01/20 22:15 07/02/20 23:27 Sodium Chloride IV 200 mls/hr Q24H MARIELENA Administration Potassium Chloride Confirm 07/01/20 22:22 07/01/20 23:34 Kcl 10 Meq In Water 50 Ml Administered 07/01/20 22:23 Not Given Dose 50 mls @ as directed .ROUTE .STK-MED ONE Potassium Chloride 10 meq/ 50 mls @ 25 mls/hr 07/01/20 23:32 07/01/20 23:38 Premix IV 07/02/20 01:31 25 mls/hr ONETIME ONE Administration Ketorolac Tromethamine 15 mg 07/02/20 02:12 07/02/20 04:09 Toradol IVPUSH 07/02/20 02:13 15 mg ONETIME ONE Administration Metformin HCl 1,000 mg 07/02/20 17:00 07/02/20 16:33 Glucophage PO 1,000 mg BIDMEALS MARIELENA Administration Ondansetron HCl Confirm 07/02/20 03:46 07/02/20 04:10 Zofran Administered 07/02/20 03:47 Not Given Dose 4 mg .ROUTE .STK-MED ONE Ondansetron HCl 4 mg 07/02/20 03:53 07/02/20 03:50 Zofran IVPUSH 4 mg Q4H PRN Administration Nausea/Vomiting Potassium Chloride 40 meq 07/01/20 19:53 07/01/20 20:03 Klor-Con M20 PO 07/01/20 19:54 40 meq ONETIME ONE Administration Tramadol HCl Confirm 07/02/20 09:57 07/02/20 10:28 Ultram Administered 07/02/20 09:58 Not Given Dose 50 mg .ROUTE .STK-MED ONE Tramadol HCl 50 mg 07/02/20 10:03 07/02/20 10:03 Ultram PO 07/02/20 10:04 50 mg ONETIME ONE Administration Tramadol HCl 50 mg 07/02/20 17:35 07/02/20 23:28 Ultram PO 50 mg TID PRN Administration Pain Departure - Departure Time of Disposition: 22:00 Disposition: Admitted As Inpatient 67 Clinical Impression: UTI, Urinary tract infectious disease Fever Qualifiers: Fever type: due to other condition Qualified Code(s): R50.81 - Fever presenting with conditions classified elsewhere - Discharge Information *PRESCRIPTION DRUG MONITORING PROGRAM REVIEWED*: Not Applicable *COPY OF PRESCRIPTION DRUG MONITORING REPORT IN PATIENT CAROL: Not Applicable Sepsis Event Note (ED) - Evaluation Sepsis Screening Result: No Definite Risk
== END 2020-07-03 00:45 ==
LOC: LB.ED 18:10 → LB.MS 20:32
PROVIDERS: ADMIT Nurse Practitioner; ATTEND Nurse Practitioner
DX: R07.89 Other chest pain (principal); R82.81 Pyuria; R11.2 Nausea with vomiting, unspecified; G89.29 Other chronic pain; M54.9 Dorsalgia, unspecified; R50.81 Fever presenting with conditions classified elsewhere; E78.5 Hyperlipidemia, unspecified; F32.9 Major depressive disorder, single episode, unspecified; F41.9 Anxiety disorder, unspecified; I10 Essential (primary) hypertension; Z20.828 Contact with and (suspected) exposure to other viral communicable diseases; G47.30 Sleep apnea, unspecified; K21.9 Gastro-esophageal reflux disease without esophagitis; E11.9 Type 2 diabetes mellitus without complications; E66.9 Obesity, unspecified; Z79.899 Other long term (current) drug therapy; Z79.84 Long term (current) use of oral hypoglycemic drugs; Z88.8 Allergy status to other drugs, medicaments and biological substances
CPT/HCPCS: 36415; 71045; 71260; 80053; 81001; 82962; 83605; 84484; 85025; 93005; A9270-GY; J0696; J1885; J2405; J3480; J7040; J7050; U0002

== ENCOUNTER 2020-10-04 07:40 | Emergency (ER) | payer BC, MEDICARE ==
--- NOTE | 2020-10-04 09:10 | EDM.PDOC ---
ED HPI GENERAL MEDICAL PROBLEM - General Stated Complaint: STOMACH PAIN Time Seen by Provider: 10/04/20 08:55 Source of Information: Reports: Patient History Limitations: Reports: No Limitations - History of Present Illness INITIAL COMMENTS - FREE TEXT/NARRATIVE: patient presented to the ER with a c/o SOB/cough since last night ( around midnight ). Denies fever or chills. Also reports chest discomfort from coughing. No sputum or phlegm. Reports that she has a h/o Aortic valve endocarditis and has a PICC line for which she is receiving Ampicillin QID and Rocephin. Had a OMER done showed EF 60% but severe AR. recommended by cardiac surgeon to undergo surgical procedure but given the lung infection - decision was to postpone until further stable. No fever or chills. Denies a h/o smoking. Reports she is on inhaler at home due to dyspnea. Was at admitted to OSH last week and she was told she might have pneumonia. Medical Records were ordered from OSH for review. No nausea or emesis, but also reports stomach upset. No diarrhea. Cough is worse at night. No h/o COPD. Onset: Sudden Onset Date: 10/03/20 Severity: Moderate Improves with: Reports: Medication, Movement Worsens with: Reports: Movement Context: Reports: Activity Associated Symptoms: Reports: Cough, Malaise, Shortness of Breath - Related Data Allergies Allergy/AdvReac Type Severity Reaction Status Date / Time lisinopril AdvReac Cough Verified 06/24/20 20:03 Home Meds: Home Meds Cyclobenzaprine HCl 10 mg PO QPM PRN 01/24/15 [History] Losartan Potassium 25 mg PO DAILY 07/26/17 [History] Mirtazapine 15 mg PO QPM 07/26/17 [History] Nitroglycerin 0.4 mg SL ASDIRECTED PRN 07/26/17 [History] metFORMIN HCl [Metformin HCl] 1,000 mg PO BIDMEALS 07/26/17 [History] Metoprolol Succinate [Toprol Xl] 75 mg PO DAILY 06/24/20 [History] Pramipexole Di-HCl [Pramipexole ER] 1.5 mg PO DAILY 06/24/20 [History] Simvastatin 40 mg PO BEDTIME 06/24/20 [History] Venlafaxine HCl [Venlafaxine ER] 150 mg PO BID 06/24/20 [History] hydroCHLOROthiazide [Hydrochlorothiazide] 25 mg PO DAILY 06/24/20 [History] traMADol HCl [Tramadol HCl] 1 tab PO TID PRN 06/24/20 [History] Past Medical History HEENT History: Reports: Allergic Rhinitis Cardiovascular History: Reports: Hypertension Respiratory History: Reports: Sleep Apnea Gastrointestinal History: Reports: GERD Genitourinary History: Reports: None Musculoskeletal History: Reports: Arthritis, Back Pain, Chronic, Fibromyalgia Neurological History: Reports: Other (See Below) Other Neuro History: restless leg syndrome Psychiatric History: Reports: Depression Endocrine/Metabolic History: Reports: Diabetes, Type II, Obesity/BMI 30+, Osteopenia - Past Surgical History Cardiovascular Surgical History: Reports: None GI Surgical History: Reports: None Social & Family History - Family History Family Medical History: No Pertinent Family History - Caffeine Use Caffeine Use: Reports: Soda ED ROS GENERAL - Review of Systems Review Of Systems: Comprehensive ROS is negative, except as noted in HPI. Constitutional: Reports: Malaise HEENT: Reports: No Symptoms Respiratory: Reports: Shortness of Breath, Cough Cardiovascular: Reports: Dyspnea on Exertion, Edema : Reports: No Symptoms Neurological: Reports: No Symptoms Psychiatric: Reports: No Symptoms Hematologic/Lymphatic: Reports: No Symptoms ED EXAM, GENERAL - Physical Exam Exam: See Below Free Text/Narrative:: upon arrival to the ER - it was noted her O2 sat to be in the high 80's. ( 88- 89% on RA ) - up to 93% on 2-3 lit O2 by NC. in mild resp distress, but no fever. Good BP.No tachycardia. EKG - NSR, no acute ischemic changes. CXR - concerns for b/l edema, and possible infiltrates in the right side ? Right middle lobe. Labs were ordered including CBC, CMP, Trop, Dimer. Covid-19 test is negative. Exam Limited By: No Limitations General Appearance: Alert, Mild Distress Ears: Normal External Exam Nose: Normal Inspection Throat/Mouth: Normal Inspection Head: Atraumatic Respiratory/Chest: Respiratory Distress, Crackles Cardiovascular: Regular Rate, Rhythm, Other (b/l LEs edema) Course - Vital Signs Last Recorded V/S: Last Vital Signs Temp 36.9 C 10/04/20 09:34 Pulse 105 H 10/04/20 10:17 Resp 20 10/04/20 10:17 BP 121/59 L 10/04/20 10:17 Pulse Ox 92 L 10/04/20 10:17 - Orders/Labs/Meds Orders: Active Orders 24 hr Category Date Time Status EKG Documentation Completion [RC] ASDIRECTED Care 10/04/20 09:03 Active RT Aerosol Therapy [RC] ASDIRECTED Care 10/04/20 10:25 Ordered Chest 2V [CR] Stat Exams 10/04/20 09:03 Taken CORONAVIRUS COVID-19 RAPID [MOLEC] Stat Lab 10/04/20 09:07 Ordered Labs: Laboratory Tests 10/04/20 10/04/20 10/04/20 Range/Units 09:03 09:03 09:07 WBC 5.6 (4.0-11.0) K/uL RBC 4.18 (3.80-5.80) M/uL Hgb 11.0 L D (11.5-16.5) g/dL Hct 34.5 L D (37.0-47.0) % MCV 83 (76-96) fL MCH 26.3 L (27.0-32.0) pg MCHC 31.9 (31.0-35.0) g/dL RDW 16.4 H (11.0-16.0) % Plt Count 228 (150-500) K/uL MPV 9.8 (6.0-10.0) fL Neut % (Auto) 77.0 H (45.0-70.0) % Lymph % (Auto) 11.4 L (20.0-40.0) % Cherry % (Auto) 8.2 (3.0-10.0) % Eos % (Auto) 3.0 (1.0-5.0) % Baso % (Auto) 0.4 (0.0-0.5) % Neut # (Auto) 4.33 (2.00-7.50) K/uL Lymph # (Auto) 0.64 L (1.50-4.00) K/uL Cherry # (Auto) 0.46 (0.20-0.80) K/uL Eos # (Auto) 0.17 (0.04-0.40) K/uL Baso # (Auto) 0.02 (0.02-0.10) K/uL D-Dimer, Quantitative (0-400) ng/mL Sodium 139 (136-145) mmol/L Potassium 3.5 (3.5-5.1) mmol/L Chloride 102 (98-107) mmol/L Carbon Dioxide 28.7 (21.0-32.0) mmol/L Anion Gap 11.8 (5.0-15.0) mmol/L BUN 9 D (8-26) mg/dL Creatinine 0.77 (0.55-1.02) mg/dL Est Cr Clr Drug Dosing 68.77 mL/min Estimated GFR (MDRD) > 60 (>60) MLS/MIN BUN/Creatinine Ratio 11.7 (6-25) Glucose 211 H (74-100) mg/dL Calcium 8.9 (8.5-10.1) mg/dL Total Bilirubin 0.5 D (0.0-1.0) mg/dL AST 15 (15-37) U/L ALT 21 (12-78) U/L Alkaline Phosphatase 90 (46-116) U/L Troponin I (0.000-0.060) ng/mL B-Natriuretic Peptide (0-125) pg/mL Total Protein 6.3 L (6.4-8.2) g/dL Albumin 2.6 L (3.4-5.0) g/dL Globulin 3.7 (2.2-4.2) g/dL Albumin/Globulin Ratio 0.7 L (0.8-2.0) SARS CoV-2 RNA Rapid LUZ Negative 10/04/20 10/04/20 Range/Units 09:07 09:07 WBC (4.0-11.0) K/uL RBC (3.80-5.80) M/uL Hgb (11.5-16.5) g/dL Hct (37.0-47.0) % MCV (76-96) fL MCH (27.0-32.0) pg MCHC (31.0-35.0) g/dL RDW (11.0-16.0) % Plt Count (150-500) K/uL MPV (6.0-10.0) fL Neut % (Auto) (45.0-70.0) % Lymph % (Auto) (20.0-40.0) % Cherry % (Auto) (3.0-10.0) % Eos % (Auto) (1.0-5.0) % Baso % (Auto) (0.0-0.5) % Neut # (Auto) (2.00-7.50) K/uL Lymph # (Auto) (1.50-4.00) K/uL Cherry # (Auto) (0.20-0.80) K/uL Eos # (Auto) (0.04-0.40) K/uL Baso # (Auto) (0.02-0.10) K/uL D-Dimer, Quantitative 619 H (0-400) ng/mL Sodium (136-145) mmol/L Potassium (3.5-5.1) mmol/L Chloride (98-107) mmol/L Carbon Dioxide (21.0-32.0) mmol/L Anion Gap (5.0-15.0) mmol/L BUN (8-26) mg/dL Creatinine (0.55-1.02) mg/dL Est Cr Clr Drug Dosing mL/min Estimated GFR (MDRD) (>60) MLS/MIN BUN/Creatinine Ratio (6-25) Glucose (74-100) mg/dL Calcium (8.5-10.1) mg/dL Total Bilirubin (0.0-1.0) mg/dL AST (15-37) U/L ALT (12-78) U/L Alkaline Phosphatase (46-116) U/L Troponin I 0.037 D (0.000-0.060) ng/mL B-Natriuretic Peptide 2285 H D (0-125) pg/mL Total Protein (6.4-8.2) g/dL Albumin (3.4-5.0) g/dL Globulin (2.2-4.2) g/dL Albumin/Globulin Ratio (0.8-2.0) SARS CoV-2 RNA Rapid LUZ Meds: Medications Discontinued Medications Generic Name Dose Route Start Last Admin Trade Name Freq PRN Reason Stop Dose Admin Albuterol/Ipratropium 3 ml 10/04/20 10:25 10/04/20 10:27 Duoneb 3.0-0.5 Mg/3 Ml NEB 10/04/20 10:26 3 ml STAT ONE Administration Albuterol/Ipratropium Confirm 10/04/20 10:36 Duoneb 3.0-0.5 Mg/3 Ml Administered 10/04/20 10:37 Dose 3 ml .ROUTE .STK-MED ONE Furosemide 40 mg 10/04/20 10:53 10/04/20 10:58 Lasix IVPUSH 10/04/20 10:54 40 mg NOW ONE Administration - Re-Assessments/Exams Free Text/Narrative Re-Assessment/Exam: 10/04/20 10:29 duoneb was given - felt better. O2 up to 95% on 2 lit by NC IV lasix 40mg was given due to signs of CHF. discussed the case with her ID doctor at [facility] who filled me up on her PMHs and agreed with my plan to transfer the patient to a higher level of care facility. 10/04/20 10:31 Patient agreed with the plan 10/04/20 10:59 d/w the hospitalist Dr. Valdovinos who agreed to accept the patient Departure - Departure Time of Disposition: 11:00 Disposition: DC/Tfer to Acute Hospital 02 Condition: Fair Clinical Impression: CHF, Congestive heart failure, Hypoxemia, Pneumonia - Discharge Information *PRESCRIPTION DRUG MONITORING PROGRAM REVIEWED*: Not Applicable *COPY OF PRESCRIPTION DRUG MONITORING REPORT IN PATIENT CAROL: Not Applicable Referrals: PCP,None [Primary Care Provider] - Sepsis Event Note (ED) - Focused Exam Vital Signs: Vital Signs Temp Pulse Resp BP Pulse Ox 10/04/20 10:17 105 H 20 121/59 L 92 L 10/04/20 09:34 36.9 C 113 H 18 151/70 H 89 L 10/04/20 08:51 36.9 C 113 H 18 151/70 H 89 L - Problem List & Annotations (1) CHF, Congestive heart failure SNOMED Code(s): 48096541 Code(s): I50.9 - HEART FAILURE, UNSPECIFIED Status: Acute Priority: Medium Current Visit: Yes (2) Hypoxemia SNOMED Code(s): 984802894 Code(s): R09.02 - HYPOXEMIA Status: Acute Priority: Medium Current Visit: Yes (3) Pneumonia SNOMED Code(s): 537334745 Code(s): J18.9 - PNEUMONIA, UNSPECIFIED ORGANISM Status: Acute Priority: Medium Current Visit: Yes - Problem List Review Problem List Initiated/Reviewed/Updated: Yes - My Orders Last 24 Hours: My Active Orders 10/04/20 09:03 EKG Documentation Completion [RC] ASDIRECTED Chest 2V [CR] Stat 10/04/20 09:07 CORONAVIRUS COVID-19 RAPID [MOLEC] Stat 10/04/20 10:25 RT Aerosol Therapy [RC] ASDIRECTED - Assessment/Plan Last 24 Hours: My Active Orders 10/04/20 09:03 EKG Documentation Completion [RC] ASDIRECTED Chest 2V [CR] Stat 10/04/20 09:07 CORONAVIRUS COVID-19 RAPID [MOLEC] Stat 10/04/20 10:25 RT Aerosol Therapy [RC] ASDIRECTED
[2020-10-04] MEDS ORDERED: Albuterol/Ipratropium 3.0-0.5 MG/3 ML Neb Soln NEB ONE (10:25)
[2020-10-04] MEDS ORDERED: Albuterol/Ipratropium 3.0-0.5 MG/3 ML Neb Soln ONE (10:36)
[2020-10-04] MEDS ORDERED: Furosemide 40 MG/4 ML VIAL IVPUSH ONE (10:53)
[2020-10-04] MEDS ORDERED: Furosemide 40 MG/4 ML VIAL ONE (11:08)
[2020-10-04 11:11] VITALS: BP 145/70; PULSE 103
--- NOTE | 2020-10-04 11:44 | CR ---
DATE OF SERVICE: 10/04/2020 CLINICAL DATA: SOB PA and lateral chest: Comparison is made to a prior exam dated 02 October 2020. Patient has taken a poor inspiration. The right sided central venous catheter is unchanged in position. The heart size is stable. The pulmonary vasculature appears more prominent than on the prior study. There are poorly defined infiltrates with peribronchial cuffing in the perihilar regions bilaterally, left greater than right, that have progressed from the prior study. There is also infiltrate and consolidation in the left retrocardiac region. The exam is otherwise unchanged from the prior. No pleural effusions. No pneumothorax. MTDD
== END 2020-10-04 11:23 ==
LOC: LB.ED 07:40
DX: I11.0 Hypertensive heart disease with heart failure (principal); I50.9 Heart failure, unspecified; J18.9 Pneumonia, unspecified organism; R09.02 Hypoxemia; E11.9 Type 2 diabetes mellitus without complications; G25.81 Restless legs syndrome; E66.9 Obesity, unspecified; Z68.41 Body mass index [BMI] 40.0-44.9, adult; Z79.84 Long term (current) use of oral hypoglycemic drugs; Z79.899 Other long term (current) drug therapy; Z20.828 Contact with and (suspected) exposure to other viral communicable diseases; Z88.8 Allergy status to other drugs, medicaments and biological substances
CPT/HCPCS: 36415; 71046; 80053; 83880; 84484; 85025; 85379; 93005; 96374; 99285-25; J1940; J7620-GY; U0002

== ENCOUNTER 2020-10-19 09:51 | Inpatient (IN) | payer BC, MEDICARE ==
[2020-10-19] MEDS ORDERED: Nicotine 14 MG/24 Hr Patch TRDERM SCH (15:45)
--- NOTE | 2020-10-19 16:30 | PCM.HP.2 ---
H&P History of Present Illness - General Date of Service: 10/19/20 Admit Problem/Dx: Admission Diagnosis/Problem Admission Diagnosis/Problem Endocarditis Source of Information: Patient, Family, Old Records History Limitations: Reports: No Limitations - History of Present Illness Initial Comments - Free Text/Narative: patient here for a swing bed status. Transfer from OSH facility after AVR. with a h/o anxiety, depression, DMT2, HTN, obesity and tobacco use. In Aug 2020, patient encountered COVID PNA, and UTI ( enterococcus faecalis, Prot. Mirabilis and E. Coli. ). 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 She later underwent progressing of CHF due to AV regurg, which necessitated a repair on 10/10/20. Post-op, patient was restarted on Ampicillin IV q4hr via PICC line. She also had A.Fib which was controlled with Amiodarone. No ACx were started due to high bleeding risk. - Related Data Allergies/Adverse Reactions: Allergies Allergy/AdvReac Type Severity Reaction Status Date / Time lisinopril AdvReac Cough Verified 06/24/20 20:03 Home Medications: Home Meds Cyclobenzaprine HCl 10 mg PO QPM 01/24/15 [History] Losartan Potassium 12.5 mg PO DAILY 07/26/17 [History] Mirtazapine 15 mg PO QPM 07/26/17 [History] Nitroglycerin 0.4 mg SL ASDIRECTED PRN 07/26/17 [History] metFORMIN HCl [Metformin HCl] 1,000 mg PO BIDMEALS 07/26/17 [History] Metoprolol Succinate [Toprol Xl] 50 mg PO DAILY 06/24/20 [History] Pramipexole Di-HCl [Pramipexole ER] 1.5 mg PO DAILY 06/24/20 [History] Simvastatin 40 mg PO BEDTIME 06/24/20 [History] Venlafaxine HCl [Venlafaxine ER] 300 mg PO BEDTIME 06/24/20 [History] hydroCHLOROthiazide [Hydrochlorothiazide] 25 mg PO DAILY 06/24/20 [History] traMADol HCl [Tramadol HCl] 1 tab PO Q6HR PRN MDD 400 06/24/20 [History] Past Medical History HEENT History: Reports: Allergic Rhinitis Cardiovascular History: Reports: Hypertension Respiratory History: Reports: Sleep Apnea Gastrointestinal History: Reports: GERD Genitourinary History: Reports: None Musculoskeletal History: Reports: Arthritis, Back Pain, Chronic, Fibromyalgia Neurological History: Reports: Other (See Below) Other Neuro History: restless leg syndrome Psychiatric History: Reports: Depression Endocrine/Metabolic History: Reports: Diabetes, Type II, Obesity/BMI 30+, Osteopenia - Past Surgical History Cardiovascular Surgical History: Reports: None GI Surgical History: Reports: None Other GI Surgeries/Procedures: umbilical hernia repair Female Surgical History: Reports: D&C, Hysterectomy, Lithotripsy/ESWL Social & Family History - Family History Family Medical History: No Pertinent Family History - Caffeine Use Caffeine Use: Reports: None H&P Review of Systems - Review of Systems: Review Of Systems: See Below General: Reports: Fatigue, Weight Gain HEENT: Reports: No Symptoms Pulmonary: Reports: Shortness of Breath (on exertion) Cardiovascular: Reports: Dyspnea on Exertion, Edema. Denies: Chest Pain Gastrointestinal: Reports: No Symptoms Genitourinary: Reports: No Symptoms Musculoskeletal: Reports: Back Pain Skin: Reports: Wound Neurological: Reports: No Symptoms Exam - Exam Exam: See Below - Vital Signs Vital Signs: Last Vital Signs Temp 36.2 C 10/19/20 15:32 Pulse 70 10/19/20 15:32 Resp 20 10/19/20 15:32 BP 138/49 L 10/19/20 15:32 Pulse Ox 99 10/19/20 15:32 - Exam Quality Assessment: Supplemental Oxygen General: Alert, Oriented, Cooperative HEENT: PERRLA, Conjunctiva Clear, EOMI Lungs: Clear to Auscultation, Normal Respiratory Effort Cardiovascular: Regular Rate, Regular Rhythm GI/Abdominal Exam: Normal Bowel Sounds, Soft, Non-Tender Extremities: Pedal Edema Skin: Other (sternum incision - healing well, closed with absortable sutures and a glue. The upper quarter of the wound is a little erythematous compared to the rest of the wound. no drainage and no loculation found.minimal TTP) Neurological: Cranial Nerves Intact Neuro Extensive - Mental Status: Alert, Oriented x3, Normal Mood/Affect, Normal Cognition Psychiatric: Alert, Normal Affect, Normal Mood Sepsis Event Note - Focused Exam Vital Signs: Vital Signs Temp Pulse Resp BP Pulse Ox 10/19/20 15:32 36.2 C 70 20 138/49 L 99 *Q Meaningful Use (ADM) - VTE *Q VTE Pharmacological Contraindications *Q: Risk of Bleeding VTE Anticoagulation Contraindications: Medical/Procedure Contrai - Problem List (1) CHF, Congestive heart failure SNOMED Code(s): 83852167 ICD Code: I50.9 - HEART FAILURE, UNSPECIFIED Status: Acute Priority: Medium Current Visit: No (2) Hypertension SNOMED Code(s): 38392673 ICD Code: I10 - ESSENTIAL (PRIMARY) HYPERTENSION Status: Acute Current Visit: No Onset Date: ~04/01/17 Problem Details: 04/01/17 - 1. Atypical chest pain, 2. Hypertension, 3. Uric acid crystals in the urine, 4. Chronic abdominal pain. Qualifiers: Hypertension type: essential hypertension Qualified Code(s): I10 - Essential (primary) hypertension (3) Pneumonia SNOMED Code(s): 363052994 ICD Code: J18.9 - PNEUMONIA, UNSPECIFIED ORGANISM Status: Acute Priority: Medium Current Visit: No Problem List Initiated/Reviewed/Updated: Yes Orders Last 24hrs: Active Orders 24 hr Category Date Time Status Patient Status [ADT] Routine ADT 10/19/20 15:32 Active Oxygen Therapy [RC] PRN Care 10/19/20 15:32 Active VTE/DVT Education [RC] Per Unit Routine Care 10/19/20 15:32 Active Vital Signs [RC] PER UNIT ROUTINE Care 10/19/20 15:32 Active Regular Diet [DIET] Diet 10/19/20 Dinner Ordered Nicotine [Habitrol] Med 10/19/20 15:45 Ordered 14 mg TRDERM DAILY Resuscitation Status Routine Resus Stat 10/19/20 15:32 Ordered Medication Orders Nicotine (Habitrol) 14 mg TRDERM DAILY [facility]IELENA Assessment/Plan Comment:: 1- post-op atelectasis: aggressive pulm toileting: IS, EzPAP. Nebs as needed CPAP at night O2 supplementation as needed 2- Acute post-op Anemia: related to blood loss and hemodilution. Received tx at OSH Will monitor 3- h/o post-op afib: on amiodarone PO now 4- DMT2: accucheck with meals resuming insulin home dose adjust as needed 5- Recent COVID PNA: resolved resp. training and IS 6- generalized weakness: PT/OT eval 7- s/p AVRepair for AVRegurg. 2/2 infective endocarditis: On Ampicillin 2bm q4 hrs and Rocephin q12 hrs via PICC line 8- Diet: cardiac diet as tolerating. fluid restriction to 1.5L/24hr 9- activity: encourage ambulation x3/day 10- PICC line care - Mortality Measure Prognosis:: Good
[2020-10-19] MEDS: cefTRIAXone 2 GM in Sodium Chloride 0.9% 100 ML IV SCH (17:23)
[2020-10-19] MEDS ORDERED: 50% Dextrose in Water 50 ML Syringe IVPUSH PRN (18:13)
[2020-10-19] MEDS ORDERED: Glucagon,Human Recombinant 1 MG Vial IM PRN (18:13)
[2020-10-19] MEDS: Aspirin 325 MG Tab.EC PO SCH (19:22)
[2020-10-19] MEDS: Sodium Chloride 0.9% 10 ML Syringe FLUSH PRN ×2 (19:30→20:10)
[2020-10-19] MEDS: Ampicillin 2 GM in Sodium Chloride 0.9% 100 ML IV SCH ×2 (19:35→23:24)
[2020-10-19] MEDS: Bumetanide 1 MG Tab PO SCH (19:38)
[2020-10-19] MEDS: Ferrous Sulfate 325 MG Tab PO SCH (19:38)
[2020-10-19] MEDS: Gabapentin 100 MG Cap PO SCH (19:38)
[2020-10-19] MEDS: Cyclobenzaprine 10 MG Tab PO SCH (19:38)
[2020-10-19] MEDS: Venlafaxine 150 MG Cap.ER PO SCH (19:39)
[2020-10-19] MEDS: traMADol 50 MG Tab PO PRN (19:41)
[2020-10-19] MEDS: Potassium Chloride 20 MEQ Tab.ER PO SCH (19:53)
[2020-10-19] MEDS: Magnesium Oxide 400 MG Tab PO SCH (19:53)
[2020-10-19] MEDS ORDERED: Simvastatin 40 MG Tab PO SCH (20:00)
[2020-10-19] MEDS ORDERED: atorvaSTATin 20 MG Tab PO SCH ×2 (20:00)
[2020-10-19] MEDS ORDERED: Insulin Detemir 100 Units/ML 3 ML Pen SUBCUT SCH (20:00)
[2020-10-19] MEDS ORDERED: Mirtazapine 15 MG Tab PO SCH ×2 (20:00)
[2020-10-19] MEDS: Albuterol 8 GM Inhaler INH SCH (20:00)
[2020-10-19] MEDS ORDERED: Amiodarone 200 MG Tab PO SCH (20:00)
[2020-10-19] MEDS: Insulin Glargine,Human Rec. Analog 100 Units/ML 3 ML Pen SUBCUT SCH (20:08)
[2020-10-19] MEDS: Albuterol/Ipratropium 14.7 GM Inhaler INH SCH (20:17)
[2020-10-19] MEDS ORDERED: Tuberculin, PPD 5 Units/0.1 ML 1 ML MDV IDERM ONE (20:19)
[2020-10-19] MEDS: Amiodarone 200 MG Tab PO SCH (20:20)
[2020-10-20] MEDS: Ampicillin 2 GM in Sodium Chloride 0.9% 100 ML IV SCH ×7 (00:05→20:23)
[2020-10-20] MEDS: Sodium Chloride 0.9% 10 ML Syringe FLUSH PRN ×6 (00:05→08:48)
[2020-10-20] MEDS: Acetaminophen 500 MG Tab PO PRN ×2 (01:03→08:32)
[2020-10-20] MEDS: traMADol 50 MG Tab PO PRN ×3 (01:03→20:34)
[2020-10-20] MEDS: Albuterol/Ipratropium 14.7 GM Inhaler INH SCH ×4 (04:06→17:37)
[2020-10-20] MEDS: Pantoprazole 40 MG Tab.CR PO SCH (06:45)
[2020-10-20] MEDS ORDERED: Cholecalciferol (Vitamin D3) 2,000 Unit Cap PO SCH (08:00)
[2020-10-20] MEDS ORDERED: PRAMIPEXOLE DI HCL 1.5 MG PO SCH (08:00)
[2020-10-20] MEDS: cefTRIAXone 2 GM in Sodium Chloride 0.9% 100 ML IV SCH ×2 (08:14→20:31)
[2020-10-20] MEDS: Bumetanide 1 MG Tab PO SCH ×2 (08:17→20:16)
[2020-10-20] MEDS: Ferrous Sulfate 325 MG Tab PO SCH ×3 (08:17→20:17)
[2020-10-20] MEDS: Potassium Chloride 20 MEQ Tab.ER PO SCH ×3 (08:18→20:17)
[2020-10-20] MEDS: Losartan 25 MG Tab PO SCH (08:18)
[2020-10-20] MEDS: Metoprolol Succinate 50 MG Tab.ER PO SCH (08:18)
[2020-10-20] MEDS: Amiodarone 200 MG Tab PO SCH ×2 (08:18→20:17)
[2020-10-20] MEDS: Magnesium Oxide 400 MG Tab PO SCH ×2 (08:18→20:17)
[2020-10-20] MEDS: Aspirin 325 MG Tab.EC PO SCH (08:18)
[2020-10-20] MEDS: Gabapentin 100 MG Cap PO SCH (08:18)
[2020-10-20] MEDS: Albuterol 8 GM Inhaler INH SCH ×4 (08:32→20:32)
[2020-10-20] MEDS ORDERED: Tuberculin, PPD 5 Units/0.1 ML 1 ML MDV IDERM ONE (09:00)
[2020-10-20] MEDS ORDERED: Potassium Chloride 10 MEQ Tab.ER PO SCH (11:30)
[2020-10-20] MEDS ORDERED: Lidocaine 5% 700 MG Patch TOP SCH (11:30)
[2020-10-20] MEDS: Insulin Aspart 100 Units/ML 3 ML Pen SUBCUT SCH ×3 (12:28→19:48)
[2020-10-20] MEDS ORDERED: Gabapentin 100 MG Cap PO SCH (14:00)
[2020-10-20] MEDS: Nystatin Crm 30 GM Tube TOP SCH ×2 (14:35→19:58)
[2020-10-20] MEDS: Gabapentin 300 MG Cap PO SCH ×2 (14:35→20:17)
[2020-10-20] MEDS ORDERED: Lidocaine 5% 700 MG Patch TOP PRN (17:38)
[2020-10-20] MEDS ORDERED: Pramipexole 0.125 MG Tab PO SCH (20:00)
[2020-10-20] MEDS ORDERED: Simvastatin 40 MG Tab PO SCH (20:00)
[2020-10-20] MEDS: Cyclobenzaprine 10 MG Tab PO SCH (20:17)
[2020-10-20] MEDS: Venlafaxine 150 MG Cap.ER PO SCH (20:18)
[2020-10-20] MEDS: Pramipexole 0.125 MG Tab PO SCH (20:18)
[2020-10-20] MEDS: atorvaSTATin 20 MG Tab PO SCH (20:18)
[2020-10-20] MEDS: Insulin Glargine,Human Rec. Analog 100 Units/ML 3 ML Pen SUBCUT SCH (20:29)
[2020-10-20] MEDS: Tiotropium Inhaler 18 MCG Inhalation Powder Cap Kit of 5 INH SCH (20:31)
[2020-10-21] MEDS: Ampicillin 2 GM in Sodium Chloride 0.9% 100 ML IV SCH ×6 (00:15→20:19)
[2020-10-21] MEDS: traMADol 50 MG Tab PO PRN ×2 (02:30→06:11)
[2020-10-21] MEDS: Sodium Chloride 0.9% 10 ML Syringe FLUSH PRN ×5 (07:45→16:37)
[2020-10-21] MEDS: Nystatin Crm 30 GM Tube TOP SCH ×3 (07:51→20:16)
[2020-10-21] MEDS: Albuterol 8 GM Inhaler INH SCH ×4 (07:51→20:10)
[2020-10-21] MEDS: Pantoprazole 40 MG Tab.CR PO SCH (07:52)
[2020-10-21] MEDS: Amiodarone 200 MG Tab PO SCH ×2 (08:32→20:17)
[2020-10-21] MEDS: Losartan 25 MG Tab PO SCH (08:32)
[2020-10-21] MEDS: Bumetanide 1 MG Tab PO SCH ×2 (08:32→20:17)
[2020-10-21] MEDS: Metoprolol Succinate 50 MG Tab.ER PO SCH (08:33)
[2020-10-21] MEDS: Aspirin 325 MG Tab.EC PO SCH (08:33)
[2020-10-21] MEDS: Magnesium Oxide 400 MG Tab PO SCH ×2 (08:33→20:16)
[2020-10-21] MEDS: Ferrous Sulfate 325 MG Tab PO SCH ×3 (08:33→20:18)
[2020-10-21] MEDS: Potassium Chloride 20 MEQ Tab.ER PO SCH ×3 (08:33→20:15)
[2020-10-21] MEDS: Gabapentin 300 MG Cap PO SCH ×3 (08:33→20:17)
[2020-10-21] MEDS: Cholecalciferol (Vitamin D3) 2,000 Unit Cap PO SCH (08:34)
[2020-10-21] MEDS: Insulin Aspart 100 Units/ML 3 ML Pen SUBCUT SCH ×4 (08:35→20:00)
[2020-10-21] MEDS: cefTRIAXone 2 GM in Sodium Chloride 0.9% 100 ML IV SCH ×2 (08:39→20:19)
[2020-10-21] MEDS: Acetaminophen/Codeine 300-30 MG Tab PO PRN ×2 (12:17→20:17)
[2020-10-21] MEDS ORDERED: Fluconazole 150 MG Tab PO ONE (12:32)
--- NOTE | 2020-10-21 13:56 | PCM.PN ---
- General Info Date of Service: 10/21/20 Admission Dx/Problem (Free Text): Admission Diagnosis/Problem Admission Diagnosis/Problem Endocarditis Subjective Update: reports she wants something more for pain. On Tylenol, gabapentin and tramadol. She declined Lidocaine patch. No fever or chills. No SOB. c/o vaginal itching Functional Status: Reports: Tolerating Diet, Ambulating, Urinating, Incentive Spirometry - Review of Systems General: Reports: No Symptoms HEENT: Reports: No Symptoms Pulmonary: Reports: Pleuritic Chest Pain. Denies: Shortness of Breath Cardiovascular: Reports: No Symptoms Gastrointestinal: Reports: No Symptoms Genitourinary: Reports: Dysuria Skin: Reports: No Symptoms - Patient Data Vitals - Most Recent: Last Vital Signs Temp 36.6 C 10/21/20 08:00 Pulse 77 10/21/20 08:33 Resp 18 10/21/20 08:00 BP 134/55 L 10/21/20 08:33 Pulse Ox 100 10/21/20 08:00 Weight - Most Recent: 123.491 kg I&O - Last 24 Hours: Intake & Output 10/20/20 10/21/20 10/21/20 22:59 06:59 14:59 Intake Total 1180 750 Output Total 1200 Balance -20 750 Lab Results Last 24 Hours: Laboratory Results - last 24 hr 10/21/20 10/21/20 10/21/20 Range/Units 07:04 11:02 12:13 POC Glucose 111 H 157 H (74-110) mg/dL Urine Color Yellow Urine Appearance Clear (CLEAR) Urine pH 7.0 (5.0-8.0) Ur Specific [place] 1.025 (1.003-1.030) Urine Protein Negative (NEGATIVE) mg/dL Urine Glucose (UA) Negative (NEGATIVE) mg/dL Urine Ketones Negative (NEGATIVE) mg/dL Urine Occult Blood Small H (NEGATIVE) Urine Nitrite Negative (NEGATIVE) Urine Bilirubin Negative (NEGATIVE) Urine Urobilinogen 0.2 (0.2-1.0) E.U./dL Ur Leukocyte Esterase Negative (NEGATIVE) Urine RBC 5-10 H /HPF Urine WBC 5-10 H /HPF Ur Squamous Epith Cells Moderate /HPF Urine Bacteria Few /HPF Cresencio Results Last 24 Hours: Microbiology 10/19/20 06:00 MRSA Surveillance Culture - Final Nares, Left NO MRSA ISOLATED Med Orders - Current: Current Medications Acetaminophen/Codeine Phosphate (Tylenol With Codeine No.3 300mg/30mg) 1 tab PO Q4H PRN PRN Reason: Pain (moderate 4-6) Last Admin: 10/21/20 12:17 Dose: 1 tab Documented by: Albuterol (Ventolin Hfa) 0.13 gm INH QID [facility] Last Admin: 10/21/20 12:40 Dose: 2 puff Documented by: Amiodarone HCl (Cordarone) 400 mg PO BID [facility] Stop: 10/22/20 23:59 Last Admin: 10/21/20 08:32 Dose: 400 mg Documented by: Amiodarone HCl (Cordarone) 400 mg PO DAILY [facility] Stop: 11/01/20 23:59 Amiodarone HCl (Cordarone) 200 mg PO DAILY [facility] Stop: 11/15/20 23:55 Aspirin (Ecotrin) 325 mg PO DAILY [facility] Last Admin: 10/21/20 08:33 Dose: 325 mg Documented by: Atorvastatin Calcium (Lipitor) 20 mg PO BEDTIME [facility] Last Admin: 10/20/20 20:18 Dose: 20 mg Documented by: Bumetanide (Bumex) 1 mg PO BID [facility] Last Admin: 10/21/20 08:32 Dose: 1 mg Documented by: Cholecalciferol (Vitamin D3) 4,000 unit PO DAILY [facility] Last Admin: 10/21/20 08:34 Dose: 4,000 unit Documented by: Cyclobenzaprine HCl (Flexeril) 10 mg PO QPM [facility] Last Admin: 10/20/20 20:17 Dose: 10 mg Documented by: Dextrose/Water (Dextrose 50% In Water) 50 ml IVPUSH ASDIRECTED PRN PRN Reason: Hypoglycemia Ferrous Sulfate (Ferrous Sulfate) 325 mg PO TID [facility] Last Admin: 10/21/20 08:33 Dose: 325 mg Documented by: Gabapentin (Neurontin) 300 mg PO TID [facility] Last Admin: 10/21/20 08:33 Dose: 300 mg Documented by: Glucagon (Glucagen) 1 mg IM ASDIRECTED PRN PRN Reason: Hypoglycemia Ceftriaxone Sodium 2 gm/ (Sodium Chloride) 100 mls @ 200 mls/hr IV BID [facility] Last Admin: 10/21/20 08:39 Dose: 200 mls/hr Documented by: Ampicillin Sodium 2 gm/ Sodium (Chloride) 100 mls @ 200 mls/hr IV Q4H [facility] Last Admin: 10/21/20 12:00 Dose: 200 mls/hr Documented by: Insulin Aspart (Novolog) 0 unit SUBCUT WITHMEALSANDBED [facility]; Protocol Last Admin: 10/21/20 12:40 Dose: 2 units Documented by: Insulin Glargine (Lantus Solostar) 14 units SUBCUT BEDTIME [facility] Last Admin: 10/20/20 20:29 Dose: 14 units Documented by: Lidocaine (Lidoderm 5%) 700 mg TOP DAILY PRN PRN Reason: Pain Stop: 10/22/20 08:01 Losartan Potassium (Cozaar) 12.5 mg PO DAILY [facility] Last Admin: 10/21/20 08:32 Dose: 12.5 mg Documented by: Magnesium Oxide (Magnesium Oxide) 400 mg PO BID [facility] Last Admin: 10/21/20 08:33 Dose: 400 mg Documented by: Metoprolol Succinate (Toprol Xl) 50 mg PO DAILY [facility] Last Admin: 10/21/20 08:33 Dose: 50 mg Documented by: Nystatin (Nystatin Crm) 2 gm TOP TID [facility] Last Admin: 10/21/20 07:51 Dose: 1 applic Documented by: Pantoprazole Sodium (Protonix) 40 mg PO ACBREAKFAST [facility] Last Admin: 10/21/20 07:52 Dose: 40 mg Documented by: Potassium Chloride (Klor-Con M20) 20 meq PO TID [facility] Last Admin: 10/21/20 08:33 Dose: 20 meq Documented by: Pramipexole Dihydrochloride (Mirapex) 0.5 mg PO BEDTIME [facility] Last Admin: 10/20/20 20:18 Dose: 0.5 mg Documented by: Senna/Docusate Sodium (Senna Plus) 2 tab PO BID [facility] Last Admin: 10/21/20 08:33 Dose: 2 tab Documented by: Sodium Chloride (Saline Flush) 10 ml FLUSH ASDIRECTED PRN PRN Reason: Other Last Admin: 10/20/20 08:48 Dose: 10 ml Documented by: Tiotropium [place] (Spiriva Handihaler) 18 mcg INH BEDTIME [facility] Last Admin: 10/20/20 20:31 Dose: 1 dose Documented by: Tramadol HCl (Ultram) 50 mg PO Q4H PRN PRN Reason: Pain (moderate 4-6) Last Admin: 10/21/20 06:11 Dose: 50 mg Documented by: Venlafaxine HCl (Effexor Xr) 300 mg PO BEDTIME [facility] Last Admin: 10/20/20 20:18 Dose: 300 mg Documented by: Discontinued Medications Acetaminophen (Tylenol Extra Strength) 500 mg PO Q6HR PRN PRN Reason: Pain (mild 1-3) Last Admin: 10/20/20 08:32 Dose: 500 mg Documented by: Albuterol/Ipratropium (Combivent) 0 gm INH QID [facility] Last Admin: 10/20/20 17:37 Dose: Not Given Documented by: Amiodarone HCl (Cordarone) 400 mg PO BID [facility] Last Admin: 10/19/20 19:39 Dose: 400 mg Documented by: Atorvastatin Calcium (Lipitor) 20 mg PO BEDTIME [facility] Atorvastatin Calcium (Lipitor) 20 mg PO BEDTIME [facility] Last Admin: 10/19/20 22:37 Dose: Not Given Documented by: Cholecalciferol (Vitamin D3) 10,000 unit PO DAILY [facility] Last Admin: 10/20/20 08:19 Dose: 10,000 unit Documented by: Fluconazole (Diflucan) 150 mg PO ONETIME ONE Stop: 10/21/20 12:33 Last Admin: 10/21/20 13:04 Dose: 150 mg Documented by: Gabapentin (Neurontin) 100 mg PO TID [facility] Last Admin: 10/20/20 08:18 Dose: 100 mg Documented by: Ampicillin Sodium 2 gm/ Sodium (Chloride) 100 mls @ 200 mls/hr IV Q4H [facility] Last Admin: 10/20/20 00:06 Dose: 200 mls/hr Documented by: Lidocaine (Lidoderm 5%) 700 mg TOP Q24H [facility] Stop: 10/22/20 11:31 Last Admin: 10/20/20 16:17 Dose: Not Given Documented by: Mirtazapine (Remeron) 15 mg PO BEDTIME [facility] Mirtazapine (Remeron) 30 mg PO BEDTIME [facility] Last Admin: 10/19/20 19:39 Dose: 30 mg Documented by: Nicotine (Habitrol) 14 mg TRDERM DAILY [facility] Last Admin: 10/19/20 23:24 Dose: Not Given Documented by: Potassium Chloride (Klor-Con 10) 10 meq PO BID [facility] Last Admin: 10/20/20 14:30 Dose: Not Given Documented by: Simvastatin (Zocor) 40 mg PO BEDTIME [facility] Last Admin: 10/19/20 19:40 Dose: 40 mg Documented by: Simvastatin (Zocor) 40 mg PO BEDTIME [facility] Tramadol HCl (Ultram) 50 mg PO Q6HR PRN PRN Reason: Pain Last Admin: 10/20/20 06:45 Dose: 50 mg Documented by: Tuberculin PPD (Aplisol) 5 unit IDERM ONETIME ONE Stop: 10/20/20 09:01 Last Admin: 10/20/20 18:30 Dose: 5 unit Documented by: - Exam Quality Assessment: Supplemental Oxygen, DVT Prophylaxis General: Alert, Oriented, Cooperative HEENT: Pupils Equal, Pupils Reactive Neck: Supple Lungs: Clear to Auscultation, Normal Respiratory Effort Cardiovascular: Regular Rate, Regular Rhythm GI/Abdominal Exam: Normal Bowel Sounds, Soft Skin: Other (sternal incision well approximated. Upper portion seems to be little erythematous c/t the rest of the wound. no drainage and no pain to palpation.) Sepsis Event Note - Evaluation Sepsis Screening Result: No Definite Risk - Focused Exam Vital Signs: Vital Signs Temp Pulse Pulse Resp BP BP Pulse Ox 10/21/20 08:33 77 134/55 L 10/21/20 08:32 134/55 L 10/21/20 08:00 36.6 C 77 18 134/55 L 100 - Problem List & Annotations (1) CHF, Congestive heart failure SNOMED Code(s): 24958088 Code(s): I50.9 - HEART FAILURE, UNSPECIFIED Status: Acute Priority: Medium Current Visit: No (2) Hypertension SNOMED Code(s): 13892440 Code(s): I10 - ESSENTIAL (PRIMARY) HYPERTENSION Status: Acute Current Visit: No Onset Date: ~04/01/17 Qualifiers: Hypertension type: essential hypertension Qualified Code(s): I10 - Essential (primary) hypertension Annotation/Comment:: 04/01/17 - 1. Atypical chest pain, 2. Hypertension, 3. Uric acid crystals in the urine, 4. Chronic abdominal pain. (3) Pneumonia SNOMED Code(s): 236336849 Code(s): J18.9 - PNEUMONIA, UNSPECIFIED ORGANISM Status: Acute Priority: Medium Current Visit: No (4) S/P AVR (aortic valve replacement) Status: Acute Priority: High Current Visit: Yes (5) Afib SNOMED Code(s): 47673917 Code(s): I48.91 - UNSPECIFIED ATRIAL FIBRILLATION Status: Acute Priority: Medium Current Visit: Yes Qualifiers: Atrial fibrillation type: unspecified Qualified Code(s): I48.91 - Unspecified atrial fibrillation - Problem List Review Problem List Initiated/Reviewed/Updated: Yes - My Orders Last 24 Hours: My Active Orders 10/20/20 14:00 Gabapentin [Neurontin] 300 mg PO TID Nystatin [Nystatin Crm] 2 gm TOP TID 10/20/20 17:38 Lidocaine 5% [Lidoderm 5%] 700 mg TOP DAILY PRN 10/20/20 20:00 Pramipexole [Mirapex] 0.5 mg PO BEDTIME Tiotropium [Spiriva HandiHaler] 18 mcg INH BEDTIME atorvaSTATin [Lipitor] 20 mg PO BEDTIME 10/21/20 08:00 Cholecalciferol (Vitamin D3) [Vitamin D3] 4,000 unit PO DAILY 10/21/20 12:11 Acetaminophen/Codeine [Tylenol with Codeine No.3 300MG/30MG] 1 tab PO Q4H PRN 10/23/20 08:00 C-REACTIVE PROTEIN [CHEM] Routine CBC WITH AUTO DIFF [HEME] Routine COMPREHENSIVE METABOLIC PN,CMP [CHEM] Timed ESR [SEDIMENTATION RATE MANUAL] [HEME] Timed Amiodarone [Cordarone] 400 mg PO DAILY 11/02/20 08:00 Amiodarone [Cordarone] 200 mg PO DAILY - Plan Plan:: 1- post-op atelectasis: aggressive pulm toileting: IS, EzPAP. Nebs as needed CPAP at night O2 supplementation as needed 2- Acute post-op Anemia: related to blood loss and hemodilution. Received tx at OSH Will monitor 3- h/o post-op afib: on amiodarone PO now 4- DMT2: accucheck with meals resuming insulin home dose adjust as needed 5- Recent COVID PNA: resolved resp. training and IS 6- generalized weakness: PT/OT eval 7- s/p AVRepair for AVRegurg. 2/2 infective endocarditis: On Ampicillin 2bm q4 hrs and Rocephin q12 hrs via PICC line 8- Diet: cardiac diet as tolerating. fluid restriction to 1.5L/24hr 9- activity: encourage ambulation x3/day 10- PICC line care 11- vaginal itching: UA was ordered, fluconazole PO 150mg x1 12- sternal wound: discussed the case with her cardiothoracic surgeon on-call. Who recommended to continue to monitor the wound and she will follow up with him mid next week - has a scheduled appointment in 5 days
[2020-10-21] MEDS ORDERED: Calcium Carbonate 500 MG Tab.Chew PO PRN (17:11)
[2020-10-21] MEDS: Tiotropium Inhaler 18 MCG Inhalation Powder Cap Kit of 5 INH SCH (20:15)
[2020-10-21] MEDS: Insulin Glargine,Human Rec. Analog 100 Units/ML 3 ML Pen SUBCUT SCH (20:16)
[2020-10-21] MEDS: Pramipexole 0.125 MG Tab PO SCH (20:17)
[2020-10-21] MEDS: atorvaSTATin 20 MG Tab PO SCH (20:17)
[2020-10-21] MEDS: Venlafaxine 150 MG Cap.ER PO SCH (20:18)
[2020-10-21] MEDS: Cyclobenzaprine 10 MG Tab PO SCH (20:18)
[2020-10-22] MEDS: Ampicillin 2 GM in Sodium Chloride 0.9% 100 ML IV SCH ×6 (00:23→20:08)
[2020-10-22] MEDS: Sodium Chloride 0.9% 10 ML Syringe FLUSH PRN ×2 (07:45→09:02)
[2020-10-22] MEDS: Ferrous Sulfate 325 MG Tab PO SCH ×3 (07:48→20:06)
[2020-10-22] MEDS: Amiodarone 200 MG Tab PO SCH ×2 (07:52→20:01)
[2020-10-22] MEDS: Pantoprazole 40 MG Tab.CR PO SCH (07:52)
[2020-10-22] MEDS: Aspirin 325 MG Tab.EC PO SCH (07:52)
[2020-10-22] MEDS: Gabapentin 300 MG Cap PO SCH ×3 (07:52→20:03)
[2020-10-22] MEDS: Bumetanide 1 MG Tab PO SCH ×2 (07:52→20:04)
[2020-10-22] MEDS: Magnesium Oxide 400 MG Tab PO SCH ×2 (07:53→20:05)
[2020-10-22] MEDS: Insulin Aspart 100 Units/ML 3 ML Pen SUBCUT SCH ×4 (07:53→21:28)
[2020-10-22] MEDS: Potassium Chloride 20 MEQ Tab.ER PO SCH ×3 (07:53→20:05)
[2020-10-22] MEDS: Cholecalciferol (Vitamin D3) 2,000 Unit Cap PO SCH (07:53)
[2020-10-22] MEDS: Nystatin Crm 30 GM Tube TOP SCH ×3 (07:53→21:28)
[2020-10-22] MEDS: Losartan 25 MG Tab PO SCH (07:54)
[2020-10-22] MEDS: Metoprolol Succinate 50 MG Tab.ER PO SCH (07:54)
[2020-10-22] MEDS: Albuterol 8 GM Inhaler INH SCH ×4 (07:57→20:08)
[2020-10-22] MEDS: Acetaminophen/Codeine 300-30 MG Tab PO PRN (07:57)
[2020-10-22] MEDS: cefTRIAXone 2 GM in Sodium Chloride 0.9% 100 ML IV SCH ×2 (08:22→21:30)
[2020-10-22] MEDS: Cyclobenzaprine 10 MG Tab PO SCH (20:00)
[2020-10-22] MEDS: Venlafaxine 150 MG Cap.ER PO SCH (20:01)
[2020-10-22] MEDS: atorvaSTATin 20 MG Tab PO SCH (20:04)
[2020-10-22] MEDS: Tiotropium Inhaler 18 MCG Inhalation Powder Cap Kit of 5 INH SCH (20:05)
[2020-10-22] MEDS: Pramipexole 0.125 MG Tab PO SCH (20:06)
[2020-10-22] MEDS: Insulin Glargine,Human Rec. Analog 100 Units/ML 3 ML Pen SUBCUT SCH (20:13)
[2020-10-23] MEDS: Ampicillin 2 GM in Sodium Chloride 0.9% 100 ML IV SCH ×6 (00:30→19:23)
[2020-10-23] MEDS: Acetaminophen/Codeine 300-30 MG Tab PO PRN ×2 (01:26→15:50)
[2020-10-23] MEDS: Albuterol 8 GM Inhaler INH SCH ×4 (07:57→19:30)
[2020-10-23] MEDS: Magnesium Oxide 400 MG Tab PO SCH ×2 (07:58→19:31)
[2020-10-23] MEDS: Gabapentin 300 MG Cap PO SCH ×3 (07:58→19:31)
[2020-10-23] MEDS: Aspirin 325 MG Tab.EC PO SCH (07:58)
[2020-10-23] MEDS: Cholecalciferol (Vitamin D3) 2,000 Unit Cap PO SCH (07:58)
[2020-10-23] MEDS: Potassium Chloride 20 MEQ Tab.ER PO SCH ×3 (07:59→19:40)
[2020-10-23] MEDS: Losartan 25 MG Tab PO SCH (07:59)
[2020-10-23] MEDS: Metoprolol Succinate 50 MG Tab.ER PO SCH (07:59)
[2020-10-23] MEDS: Insulin Aspart 100 Units/ML 3 ML Pen SUBCUT SCH ×4 (08:00→19:50)
[2020-10-23] MEDS: Pantoprazole 40 MG Tab.CR PO SCH (08:00)
[2020-10-23] MEDS: Bumetanide 1 MG Tab PO SCH ×2 (08:00→19:36)
[2020-10-23] MEDS: Nystatin Crm 30 GM Tube TOP SCH ×3 (08:01→19:30)
[2020-10-23] MEDS: Amiodarone 200 MG Tab PO SCH (08:04)
[2020-10-23] MEDS: Ferrous Sulfate 325 MG Tab PO SCH ×3 (08:04→19:30)
[2020-10-23] MEDS: cefTRIAXone 2 GM in Sodium Chloride 0.9% 100 ML IV SCH ×2 (09:00→19:42)
[2020-10-23] MEDS ORDERED: Fluconazole 150 MG Tab PO ONE (10:24)
--- NOTE | 2020-10-23 11:46 | PCM.PN ---
- General Info Date of Service: 10/23/20 Subjective Update: Patient notes she feels fine today. She noticed she has gained weight. No other health concerns today. Functional Status: Reports: Pain Controlled - Review of Systems General: Reports: Weakness HEENT: Reports: No Symptoms Pulmonary: Reports: No Symptoms Cardiovascular: Reports: No Symptoms Gastrointestinal: Reports: No Symptoms Musculoskeletal: Reports: No Symptoms Skin: Reports: Other (post surgical healing normal) Psychiatric: Reports: No Symptoms - Patient Data Vitals - Most Recent: Last Vital Signs Temp 36.3 C 10/23/20 08:00 Pulse 73 10/23/20 08:00 Resp 16 10/23/20 08:00 BP 129/51 L 10/23/20 08:00 Pulse Ox 96 10/23/20 08:00 Weight - Most Recent: 125.282 kg I&O - Last 24 Hours: Intake & Output 10/22/20 10/23/20 10/23/20 22:59 06:59 14:59 Intake Total 858 800 Output Total 800 1100 Balance 58 -300 Lab Results Last 24 Hours: Laboratory Results - last 24 hr 10/22/20 10/22/20 10/23/20 Range/Units 10:41 16:07 07:05 WBC 5.5 (4.0-11.0) K/uL RBC 3.41 L (3.80-5.80) M/uL Hgb 9.1 L (11.5-16.5) g/dL Hct 30.0 L (37.0-47.0) % MCV 88 (76-96) fL MCH 26.7 L (27.0-32.0) pg MCHC 30.3 L (31.0-35.0) g/dL RDW 17.8 H (11.0-16.0) % Plt Count 241 D (150-500) K/uL MPV 10.8 H (6.0-10.0) fL Neut % (Auto) 61.8 (45.0-70.0) % Lymph % (Auto) 16.5 L (20.0-40.0) % [place] % (Auto) 12.2 H (3.0-10.0) % Eos % (Auto) 9.1 H (1.0-5.0) % Baso % (Auto) 0.4 (0.0-0.5) % Neut # (Auto) 3.41 (2.00-7.50) K/uL Lymph # (Auto) 0.91 L (1.50-4.00) K/uL [place] # (Auto) 0.67 (0.20-0.80) K/uL Eos # (Auto) 0.50 H (0.04-0.40) K/uL Baso # (Auto) 0.02 (0.02-0.10) K/uL ESR 44 H (0-30) mm/hr Sodium (136-145) mmol/L Potassium (3.5-5.1) mmol/L Chloride (98-107) mmol/L Carbon Dioxide (21.0-32.0) mmol/L Anion Gap (5.0-15.0) mmol/L BUN (8-26) mg/dL Creatinine (0.55-1.02) mg/dL Est Cr Clr Drug Dosing mL/min Estimated GFR (MDRD) (>60) MLS/MIN BUN/Creatinine Ratio (6-25) Glucose (74-100) mg/dL POC Glucose 171 H 186 H (74-110) mg/dL Calcium (8.5-10.1) mg/dL Total Bilirubin (0.0-1.0) mg/dL AST (15-37) U/L ALT (12-78) U/L Alkaline Phosphatase (46-116) U/L C-Reactive Protein (0.0-3.0) mg/L Total Protein (6.4-8.2) g/dL Albumin (3.4-5.0) g/dL Globulin (2.2-4.2) g/dL Albumin/Globulin Ratio (0.8-2.0) 10/23/20 10/23/20 Range/Units 07:05 10:28 WBC (4.0-11.0) K/uL RBC (3.80-5.80) M/uL Hgb (11.5-16.5) g/dL Hct (37.0-47.0) % MCV (76-96) fL MCH (27.0-32.0) pg MCHC (31.0-35.0) g/dL RDW (11.0-16.0) % Plt Count (150-500) K/uL MPV (6.0-10.0) fL Neut % (Auto) (45.0-70.0) % Lymph % (Auto) (20.0-40.0) % [place] % (Auto) (3.0-10.0) % Eos % (Auto) (1.0-5.0) % Baso % (Auto) (0.0-0.5) % Neut # (Auto) (2.00-7.50) K/uL Lymph # (Auto) (1.50-4.00) K/uL [place] # (Auto) (0.20-0.80) K/uL Eos # (Auto) (0.04-0.40) K/uL Baso # (Auto) (0.02-0.10) K/uL ESR (0-30) mm/hr Sodium 143 (136-145) mmol/L Potassium 3.8 (3.5-5.1) mmol/L Chloride 106 (98-107) mmol/L Carbon Dioxide 32.6 H (21.0-32.0) mmol/L Anion Gap 8.2 (5.0-15.0) mmol/L BUN 10 D (8-26) mg/dL Creatinine 0.85 (0.55-1.02) mg/dL Est Cr Clr Drug Dosing 62.30 mL/min Estimated GFR (MDRD) > 60 (>60) MLS/MIN BUN/Creatinine Ratio 11.8 (6-25) Glucose 120 H (74-100) mg/dL POC Glucose 161 H (74-110) mg/dL Calcium 8.4 L (8.5-10.1) mg/dL Total Bilirubin 0.4 (0.0-1.0) mg/dL AST 20 (15-37) U/L ALT 39 (12-78) U/L Alkaline Phosphatase 118 H (46-116) U/L C-Reactive Protein 67.7 H (0.0-3.0) mg/L Total Protein 5.3 L (6.4-8.2) g/dL Albumin 2.2 L (3.4-5.0) g/dL Globulin 3.1 (2.2-4.2) g/dL Albumin/Globulin Ratio 0.7 L (0.8-2.0) Med Orders - Current: Current Medications Acetaminophen/Codeine Phosphate (Tylenol With Codeine No.3 300mg/30mg) 1 tab PO Q4H PRN PRN Reason: Pain (moderate 4-6) Last Admin: 10/23/20 01:26 Dose: 1 tab Documented by: Albuterol (Ventolin Hfa) 0.13 gm INH QID [facility] Last Admin: 10/23/20 07:57 Dose: 2 puff Documented by: Amiodarone HCl (Cordarone) 400 mg PO DAILY [facility] Stop: 11/01/20 23:59 Last Admin: 10/23/20 08:04 Dose: 400 mg Documented by: Amiodarone HCl (Cordarone) 200 mg PO DAILY [facility] Stop: 11/15/20 23:55 Aspirin (Ecotrin) 325 mg PO DAILY [facility] Last Admin: 10/23/20 07:58 Dose: 325 mg Documented by: Atorvastatin Calcium (Lipitor) 20 mg PO BEDTIME [facility] Last Admin: 10/22/20 20:04 Dose: 20 mg Documented by: Bumetanide (Bumex) 1 mg PO BID [facility] Last Admin: 10/23/20 08:00 Dose: 1 mg Documented by: Calcium Carbonate/Glycine (Tums) 500 mg PO Q2HR PRN PRN Reason: Indigestion Last Admin: 10/21/20 17:44 Dose: 500 mg Documented by: Cholecalciferol (Vitamin D3) 4,000 unit PO DAILY [facility] Last Admin: 10/23/20 07:58 Dose: 4,000 unit Documented by: Cyclobenzaprine HCl (Flexeril) 10 mg PO QPM [facility] Last Admin: 10/22/20 20:00 Dose: 10 mg Documented by: Dextrose/Water (Dextrose 50% In Water) 50 ml IVPUSH ASDIRECTED PRN PRN Reason: Hypoglycemia Ferrous Sulfate (Ferrous Sulfate) 325 mg PO TID [facility] Last Admin: 10/23/20 08:04 Dose: 325 mg Documented by: Gabapentin (Neurontin) 300 mg PO TID [facility] Last Admin: 10/23/20 07:58 Dose: 300 mg Documented by: Glucagon (Glucagen) 1 mg IM ASDIRECTED PRN PRN Reason: Hypoglycemia Ceftriaxone Sodium 2 gm/ (Sodium Chloride) 100 mls @ 200 mls/hr IV BID [facility] Last Admin: 10/23/20 09:00 Dose: 200 mls/hr Documented by: Ampicillin Sodium 2 gm/ Sodium (Chloride) 100 mls @ 200 mls/hr IV Q4H [facility] Last Admin: 10/23/20 11:38 Dose: 200 mls/hr Documented by: Insulin Aspart (Novolog) 0 unit SUBCUT WITHMEALSANDBED [facility]; Protocol Last Admin: 10/23/20 11:40 Dose: 2 units Documented by: Insulin Glargine (Lantus Solostar) 14 units SUBCUT BEDTIME [facility] Last Admin: 10/22/20 20:13 Dose: 14 units Documented by: Losartan Potassium (Cozaar) 12.5 mg PO DAILY [facility] Last Admin: 10/23/20 07:59 Dose: 12.5 mg Documented by: Magnesium Oxide (Magnesium Oxide) 400 mg PO BID [facility] Last Admin: 10/23/20 07:58 Dose: 400 mg Documented by: Metoprolol Succinate (Toprol Xl) 50 mg PO DAILY [facility] Last Admin: 10/23/20 07:59 Dose: 50 mg Documented by: Nystatin (Nystatin Crm) 2 gm TOP TID [facility] Last Admin: 10/23/20 08:01 Dose: 1 applic Documented by: Pantoprazole Sodium (Protonix) 40 mg PO ACBREAKFAST [facility] Last Admin: 10/23/20 08:00 Dose: 40 mg Documented by: Potassium Chloride (Klor-Con M20) 20 meq PO TID [facility] Last Admin: 10/23/20 07:59 Dose: 20 meq Documented by: Pramipexole Dihydrochloride (Mirapex) 0.5 mg PO BEDTIME [facility] Last Admin: 10/22/20 20:06 Dose: 0.5 mg Documented by: Senna/Docusate Sodium (Senna Plus) 2 tab PO BID [facility] Last Admin: 10/23/20 07:58 Dose: 2 tab Documented by: Sodium Chloride (Saline Flush) 10 ml FLUSH ASDIRECTED PRN PRN Reason: Other Last Admin: 10/22/20 09:02 Dose: 10 ml Documented by: Tiotropium [place] (Spiriva Handihaler) 18 mcg INH BEDTIME [facility] Last Admin: 10/22/20 20:05 Dose: 1 dose Documented by: Tramadol HCl (Ultram) 50 mg PO Q4H PRN PRN Reason: Pain (moderate 4-6) Last Admin: 10/21/20 06:11 Dose: 50 mg Documented by: Venlafaxine HCl (Effexor Xr) 300 mg PO BEDTIME [facility] Last Admin: 10/22/20 20:01 Dose: 300 mg Documented by: Discontinued Medications Acetaminophen (Tylenol Extra Strength) 500 mg PO Q6HR PRN PRN Reason: Pain (mild 1-3) Last Admin: 10/20/20 08:32 Dose: 500 mg Documented by: Albuterol/Ipratropium (Combivent) 0 gm INH QID [facility] Last Admin: 10/20/20 17:37 Dose: Not Given Documented by: Amiodarone HCl (Cordarone) 400 mg PO BID [facility] Last Admin: 10/19/20 19:39 Dose: 400 mg Documented by: Amiodarone HCl (Cordarone) 400 mg PO BID [facility] Stop: 10/22/20 23:59 Last Admin: 10/22/20 20:01 Dose: 400 mg Documented by: Atorvastatin Calcium (Lipitor) 20 mg PO BEDTIME [facility] Atorvastatin Calcium (Lipitor) 20 mg PO BEDTIME [facility] Last Admin: 10/19/20 22:37 Dose: Not Given Documented by: Cholecalciferol (Vitamin D3) 10,000 unit PO DAILY [facility] Last Admin: 10/20/20 08:19 Dose: 10,000 unit Documented by: Fluconazole (Diflucan) 150 mg PO ONETIME ONE Stop: 10/21/20 12:33 Last Admin: 10/21/20 13:04 Dose: 150 mg Documented by: Fluconazole (Diflucan) 150 mg PO ONETIME ONE Stop: 10/23/20 10:25 Last Admin: 10/23/20 10:57 Dose: 150 mg Documented by: Gabapentin (Neurontin) 100 mg PO TID [facility] Last Admin: 10/20/20 08:18 Dose: 100 mg Documented by: Ampicillin Sodium 2 gm/ Sodium (Chloride) 100 mls @ 200 mls/hr IV Q4H [facility] Last Admin: 10/20/20 00:06 Dose: 200 mls/hr Documented by: Lidocaine (Lidoderm 5%) 700 mg TOP Q24H [facility] Stop: 10/22/20 11:31 Last Admin: 10/20/20 16:17 Dose: Not Given Documented by: Lidocaine (Lidoderm 5%) 700 mg TOP DAILY PRN PRN Reason: Pain Stop: 10/22/20 08:01 Mirtazapine (Remeron) 15 mg PO BEDTIME [facility] Mirtazapine (Remeron) 30 mg PO BEDTIME [facility] Last Admin: 10/19/20 19:39 Dose: 30 mg Documented by: Nicotine (Habitrol) 14 mg TRDERM DAILY [facility] Last Admin: 10/19/20 23:24 Dose: Not Given Documented by: Potassium Chloride (Klor-Con 10) 10 meq PO BID [facility] Last Admin: 10/20/20 14:30 Dose: Not Given Documented by: Simvastatin (Zocor) 40 mg PO BEDTIME [facility] Last Admin: 10/19/20 19:40 Dose: 40 mg Documented by: Simvastatin (Zocor) 40 mg PO BEDTIME [facility] Tramadol HCl (Ultram) 50 mg PO Q6HR PRN PRN Reason: Pain Last Admin: 10/20/20 06:45 Dose: 50 mg Documented by: Tuberculin PPD (Aplisol) 5 unit IDERM ONETIME ONE Stop: 10/20/20 09:01 Last Admin: 10/20/20 18:30 Dose: 5 unit Documented by: - Exam General: Alert, Oriented, Cooperative HEENT: Pupils Equal, Pupils Reactive, EOMI Lungs: Clear to Auscultation, Normal Respiratory Effort Cardiovascular: Regular Rate, Regular Rhythm GI/Abdominal Exam: Normal Bowel Sounds Extremities: Normal Inspection Wound/Incisions: Healing Well Neurological: No New Focal Deficit Psy/Mental Status: Alert, Normal Affect, Normal Mood Sepsis Event Note - Evaluation Sepsis Screening Result: No Definite Risk - Focused Exam Vital Signs: Vital Signs Temp Pulse Pulse Resp BP BP Pulse Ox 10/23/20 08:00 36.3 C 73 16 129/51 L 96 10/23/20 07:59 73 129/51 L - Problem List & Annotations (1) Endocarditis and heart valve disorders in diseases classified elsewhere SNOMED Code(s): 592875 Code(s): I39 - ENDOCARDITIS AND HEART VALVE DISORD IN DIS CLASSD [id number] Status: Acute Current Visit: Yes (2) S/P AVR (aortic valve replacement) Status: Acute Priority: High Current Visit: Yes (3) CHF, Congestive heart failure SNOMED Code(s): 31611533 Code(s): I50.9 - HEART FAILURE, UNSPECIFIED Status: Chronic Priority: Medium Current Visit: Yes - Problem List Review Problem List Initiated/Reviewed/Updated: Yes - Plan Plan:: 1- post-op atelectasis: aggressive pulm toileting: IS, EzPAP. Nebs as needed CPAP at night O2 supplementation as needed 2- Acute post-op Anemia: related to blood loss and hemodilution. Received tx at OSH Will monitor 3- h/o post-op afib: on amiodarone PO now 4- DMT2: accucheck with meals resuming insulin home dose adjust as needed 5- Recent COVID PNA: resolved resp. training and IS 6- generalized weakness: PT/OT eval 7- s/p AVRepair for AVRegurg. 2/2 infective endocarditis: On Ampicillin 2bm q4 hrs and Rocephin q12 hrs via PICC line 8- Diet: cardiac diet as tolerating. fluid restriction to 1.5L/24hr 9- activity: encourage ambulation x3/day 10- PICC line care 11- vaginal itching: UA was ordered, fluconazole PO 150mg x1 12- sternal wound: discussed the case with her cardiothoracic surgeon on-call. Who recommended to continue to monitor the wound and she will follow up with him mid next week - has a scheduled appointment in 5 days 10/23/20 Continue current care plan with no changes at this time. Patient improvement seen. We will monitor weight gain as there is concern of Fluid overload. Patient pain stable and controlled. No dyspnea or shortness of breath at this time - will monitor fluids.
[2020-10-23] MEDS: Pramipexole 0.125 MG Tab PO SCH (19:31)
[2020-10-23] MEDS: Cyclobenzaprine 10 MG Tab PO SCH (19:37)
[2020-10-23] MEDS: atorvaSTATin 20 MG Tab PO SCH (19:37)
[2020-10-23] MEDS: Venlafaxine 150 MG Cap.ER PO SCH (19:40)
[2020-10-23] MEDS: Tiotropium Inhaler 18 MCG Inhalation Powder Cap Kit of 5 INH SCH (19:41)
[2020-10-23] MEDS: Insulin Glargine,Human Rec. Analog 100 Units/ML 3 ML Pen SUBCUT SCH (19:43)
[2020-10-23] MEDS ORDERED: Albuterol 0.083% 2.5 MG/3 ML Neb Soln ONE (21:26)
[2020-10-23] MEDS ORDERED: Albuterol/Ipratropium 3.0-0.5 MG/3 ML Neb Soln ONE (22:36)
[2020-10-23] MEDS ORDERED: Albuterol 0.083% 2.5 MG/3 ML Neb Soln NEB PRN (22:46)
[2020-10-23] MEDS ORDERED: Albuterol 0.083% 2.5 MG/3 ML Neb Soln NEB STA (22:48)
[2020-10-23] MEDS ORDERED: Albuterol/Ipratropium 3.0-0.5 MG/3 ML Neb Soln NEB STA (22:51)
[2020-10-24] MEDS: Albuterol/Ipratropium 3.0-0.5 MG/3 ML Neb Soln NEB SCH ×3 (00:06→11:40)
[2020-10-24] MEDS: Ampicillin 2 GM in Sodium Chloride 0.9% 100 ML IV SCH ×6 (00:07→20:19)
[2020-10-24] MEDS: Acetaminophen/Codeine 300-30 MG Tab PO PRN (00:09)
[2020-10-24] MEDS ORDERED: Furosemide 40 MG Tab PO SCH (08:00)
[2020-10-24] MEDS: Amiodarone 200 MG Tab PO SCH (08:01)
[2020-10-24] MEDS: Metoprolol Succinate 50 MG Tab.ER PO SCH (08:01)
[2020-10-24] MEDS: Ferrous Sulfate 325 MG Tab PO SCH ×3 (08:01→20:24)
[2020-10-24] MEDS: Gabapentin 300 MG Cap PO SCH ×3 (08:02→20:28)
[2020-10-24] MEDS: Losartan 25 MG Tab PO SCH (08:02)
[2020-10-24] MEDS: Bumetanide 1 MG Tab PO SCH ×2 (08:03→20:23)
[2020-10-24] MEDS: Pantoprazole 40 MG Tab.CR PO SCH (08:03)
[2020-10-24] MEDS: Aspirin 325 MG Tab.EC PO SCH (08:03)
[2020-10-24] MEDS: Furosemide 40 MG Tab PO SCH ×2 (08:03→14:14)
[2020-10-24] MEDS: Potassium Chloride 20 MEQ Tab.ER PO SCH ×3 (08:04→20:25)
[2020-10-24] MEDS: Magnesium Oxide 400 MG Tab PO SCH ×2 (08:04→20:26)
[2020-10-24] MEDS: Albuterol 8 GM Inhaler INH SCH ×4 (08:04→20:43)
[2020-10-24] MEDS: Cholecalciferol (Vitamin D3) 2,000 Unit Cap PO SCH (08:04)
[2020-10-24] MEDS: Nystatin Crm 30 GM Tube TOP SCH ×3 (08:05→20:29)
[2020-10-24] MEDS: cefTRIAXone 2 GM in Sodium Chloride 0.9% 100 ML IV SCH ×2 (08:48→21:01)
[2020-10-24] MEDS: Insulin Aspart 100 Units/ML 3 ML Pen SUBCUT SCH ×4 (08:48→20:40)
--- NOTE | 2020-10-24 11:35 | PCM.SN.2 ---
- Free Text/Narrative Note: patient was re-evaluated today, as a routine check up. Have been doing well with therapy, and sternal wound pain has been controlled. It was noted that her weight has been steadily increasing by 4 lbs since admission. Patient is already on Bumex 2gm daily. She uses a CPAP to help her sleep due to a severe case of MEMO. She is also still c/o vaginal irritation and discomfort. She received her second dose of fluconazole yesterday and has been using topical Nystatin TID. Vaginal exam was done, showed irritation and a sample of vaginal discharges was obtained for lab testing. No open sores or wounds were seen. plan: 1-Add lasix 40mg daily BID for 3 days then reassess. Daily weight. goals to lose 1-2lbs by the . 2-added Triamcinolone local topical, continue nystatin TID 3-Vaginal swab and UA pending
[2020-10-24] MEDS ORDERED: Albuterol/Ipratropium 3.0-0.5 MG/3 ML Neb Soln NEB PRN (13:23)
[2020-10-24] MEDS: Triamcinolone Acetonide 0.5% Crm 15 GM Tube TOP SCH ×2 (16:28→20:44)
[2020-10-24] MEDS: atorvaSTATin 20 MG Tab PO SCH (20:25)
[2020-10-24] MEDS: Cyclobenzaprine 10 MG Tab PO SCH (20:25)
[2020-10-24] MEDS: Pramipexole 0.125 MG Tab PO SCH (20:27)
[2020-10-24] MEDS: Venlafaxine 150 MG Cap.ER PO SCH (20:30)
[2020-10-24] MEDS: traMADol 50 MG Tab PO PRN (20:34)
[2020-10-24] MEDS: Insulin Glargine,Human Rec. Analog 100 Units/ML 3 ML Pen SUBCUT SCH (20:37)
[2020-10-24] MEDS: Tiotropium Inhaler 18 MCG Inhalation Powder Cap Kit of 5 INH SCH (20:44)
[2020-10-24] MEDS: Sodium Chloride 0.9% 10 ML Syringe FLUSH PRN (21:44)
[2020-10-24] MEDS ORDERED: MENTHOL 1% TOP PRN (22:57)
[2020-10-24] MEDS ORDERED: LIDOCAINE 4% TOP PRN (22:57)
[2020-10-25] MEDS: Ampicillin 2 GM in Sodium Chloride 0.9% 100 ML IV SCH ×6 (00:43→20:59)
[2020-10-25] MEDS ORDERED: Polyethylene Glycol 3350 Powder 17 GM Packet ONE (07:28)
[2020-10-25] MEDS: Amiodarone 200 MG Tab PO SCH (07:47)
[2020-10-25] MEDS: Cholecalciferol (Vitamin D3) 2,000 Unit Cap PO SCH (07:47)
[2020-10-25] MEDS: Potassium Chloride 20 MEQ Tab.ER PO SCH ×3 (07:48→21:02)
[2020-10-25] MEDS: Gabapentin 300 MG Cap PO SCH ×3 (07:48→21:00)
[2020-10-25] MEDS: Losartan 25 MG Tab PO SCH (07:48)
[2020-10-25] MEDS: Magnesium Oxide 400 MG Tab PO SCH ×2 (07:48→21:17)
[2020-10-25] MEDS: Metoprolol Succinate 50 MG Tab.ER PO SCH (07:48)
[2020-10-25] MEDS: Aspirin 325 MG Tab.EC PO SCH (07:48)
[2020-10-25] MEDS: Furosemide 40 MG Tab PO SCH ×2 (07:49→14:21)
[2020-10-25] MEDS: Pantoprazole 40 MG Tab.CR PO SCH (07:49)
[2020-10-25] MEDS: Polyethylene Glycol 3350 Powder 510 GM Bot PO SCH (07:50)
[2020-10-25] MEDS: Ferrous Sulfate 325 MG Tab PO SCH ×3 (07:51→21:03)
[2020-10-25] MEDS: cefTRIAXone 2 GM in Sodium Chloride 0.9% 100 ML IV SCH ×2 (07:51→22:09)
[2020-10-25] MEDS: Albuterol 8 GM Inhaler INH SCH ×4 (07:51→21:17)
[2020-10-25] MEDS: Triamcinolone Acetonide 0.5% Crm 15 GM Tube TOP SCH ×2 (07:52→21:00)
[2020-10-25] MEDS: Nystatin Crm 30 GM Tube TOP SCH ×3 (07:52→21:00)
[2020-10-25] MEDS: Insulin Aspart 100 Units/ML 3 ML Pen SUBCUT SCH ×4 (08:54→21:08)
[2020-10-25] MEDS: Bumetanide 1 MG Tab PO SCH ×2 (08:57→15:47)
[2020-10-25] MEDS: traMADol 50 MG Tab PO PRN ×2 (14:20→21:05)
[2020-10-25] MEDS: Acetaminophen/Codeine 300-30 MG Tab PO PRN ×2 (15:47→22:02)
[2020-10-25] MEDS: Sodium Chloride 0.9% 10 ML Syringe FLUSH PRN ×2 (20:40→22:46)
[2020-10-25] MEDS: Vitamins A and D Oint 5 GM UD Packet TOP PRN (21:00)
[2020-10-25] MEDS: Venlafaxine 150 MG Cap.ER PO SCH (21:00)
[2020-10-25] MEDS: atorvaSTATin 20 MG Tab PO SCH (21:00)
[2020-10-25] MEDS: Pramipexole 0.125 MG Tab PO SCH (21:01)
[2020-10-25] MEDS: Cyclobenzaprine 10 MG Tab PO SCH (21:01)
[2020-10-25] MEDS: Insulin Glargine,Human Rec. Analog 100 Units/ML 3 ML Pen SUBCUT SCH (21:09)
[2020-10-25] MEDS: Tiotropium Inhaler 18 MCG Inhalation Powder Cap Kit of 5 INH SCH (21:16)
[2020-10-26] MEDS: Sodium Chloride 0.9% 10 ML Syringe FLUSH PRN ×5 (00:45→23:52)
[2020-10-26] MEDS: Ampicillin 2 GM in Sodium Chloride 0.9% 100 ML IV SCH ×8 (00:50→23:52)
[2020-10-26] MEDS: Metoprolol Succinate 50 MG Tab.ER PO SCH (07:49)
[2020-10-26] MEDS: Pantoprazole 40 MG Tab.CR PO SCH (07:49)
[2020-10-26] MEDS: Gabapentin 300 MG Cap PO SCH ×3 (07:49→20:20)
[2020-10-26] MEDS: Ferrous Sulfate 325 MG Tab PO SCH ×3 (07:49→20:22)
[2020-10-26] MEDS: Cholecalciferol (Vitamin D3) 2,000 Unit Cap PO SCH (07:51)
[2020-10-26] MEDS: Aspirin 325 MG Tab.EC PO SCH (07:51)
[2020-10-26] MEDS: Losartan 25 MG Tab PO SCH (07:51)
[2020-10-26] MEDS: Amiodarone 200 MG Tab PO SCH (07:51)
[2020-10-26] MEDS: Magnesium Oxide 400 MG Tab PO SCH ×2 (07:51→20:20)
[2020-10-26] MEDS: Furosemide 40 MG Tab PO SCH ×3 (07:52→13:27)
[2020-10-26] MEDS: cefTRIAXone 2 GM in Sodium Chloride 0.9% 100 ML IV SCH ×2 (07:52→20:53)
[2020-10-26] MEDS: Albuterol 8 GM Inhaler INH SCH ×4 (07:53→20:24)
[2020-10-26] MEDS: Triamcinolone Acetonide 0.5% Crm 15 GM Tube TOP SCH (07:53)
[2020-10-26] MEDS: Polyethylene Glycol 3350 Powder 510 GM Bot PO SCH (07:54)
[2020-10-26] MEDS: Potassium Chloride 20 MEQ Tab.ER PO SCH ×3 (07:59→20:22)
[2020-10-26] MEDS: Insulin Aspart 100 Units/ML 3 ML Pen SUBCUT SCH ×4 (09:35→20:56)
[2020-10-26] MEDS: Nystatin Crm 30 GM Tube TOP SCH ×4 (09:35→23:51)
[2020-10-26] MEDS: Bumetanide 1 MG Tab PO SCH ×2 (09:38→15:20)
[2020-10-26] MEDS: Acetaminophen/Codeine 300-30 MG Tab PO PRN ×2 (11:53→20:27)
[2020-10-26] MEDS ORDERED: Fluconazole 150 MG Tab PO ONE (12:49)
[2020-10-26] MEDS ORDERED: Fluconazole 150 MG Tab PO SCH (13:30)
[2020-10-26] MEDS: atorvaSTATin 20 MG Tab PO SCH (20:20)
[2020-10-26] MEDS: Venlafaxine 150 MG Cap.ER PO SCH (20:21)
[2020-10-26] MEDS: Pramipexole 0.125 MG Tab PO SCH (20:21)
[2020-10-26] MEDS: Cyclobenzaprine 10 MG Tab PO SCH (20:22)
[2020-10-26] MEDS: Tiotropium Inhaler 18 MCG Inhalation Powder Cap Kit of 5 INH SCH (20:24)
[2020-10-26] MEDS: Vitamins A and D Oint 5 GM UD Packet TOP PRN (20:25)
[2020-10-26] MEDS: Insulin Glargine,Human Rec. Analog 100 Units/ML 3 ML Pen SUBCUT SCH (20:57)
[2020-10-27] MEDS: Sodium Chloride 0.9% 10 ML Syringe FLUSH PRN (00:34)
[2020-10-27] MEDS: Ampicillin 2 GM in Sodium Chloride 0.9% 100 ML IV SCH ×6 (03:35→23:52)
[2020-10-27] MEDS: Acetaminophen/Codeine 300-30 MG Tab PO PRN ×2 (03:45→12:40)
[2020-10-27] MEDS: Aspirin 325 MG Tab.EC PO SCH (08:05)
[2020-10-27] MEDS: Ferrous Sulfate 325 MG Tab PO SCH ×3 (08:05→20:22)
[2020-10-27] MEDS: Bumetanide 1 MG Tab PO SCH ×2 (08:05→15:03)
[2020-10-27] MEDS: Magnesium Oxide 400 MG Tab PO SCH ×2 (08:05→20:20)
[2020-10-27] MEDS: Gabapentin 300 MG Cap PO SCH ×3 (08:05→20:22)
[2020-10-27] MEDS: Cholecalciferol (Vitamin D3) 2,000 Unit Cap PO SCH (08:05)
[2020-10-27] MEDS: Albuterol 8 GM Inhaler INH SCH ×4 (08:06→20:16)
[2020-10-27] MEDS: Amiodarone 200 MG Tab PO SCH (08:06)
[2020-10-27] MEDS: Losartan 25 MG Tab PO SCH (08:07)
[2020-10-27] MEDS: traMADol 50 MG Tab PO PRN (08:08)
[2020-10-27] MEDS: Metoprolol Succinate 50 MG Tab.ER PO SCH (08:08)
[2020-10-27] MEDS: Potassium Chloride 20 MEQ Tab.ER PO SCH ×3 (08:08→20:22)
[2020-10-27] MEDS: Pantoprazole 40 MG Tab.CR PO SCH (08:08)
[2020-10-27] MEDS: Furosemide 40 MG Tab PO SCH ×2 (08:09→15:03)
[2020-10-27] MEDS: Nystatin Crm 30 GM Tube TOP SCH ×3 (08:12→20:58)
[2020-10-27] MEDS: Polyethylene Glycol 3350 Powder 510 GM Bot PO SCH (08:13)
[2020-10-27] MEDS: Insulin Aspart 100 Units/ML 3 ML Pen SUBCUT SCH ×4 (08:14→20:18)
[2020-10-27] MEDS ORDERED: Ampicillin 2 GM Vial ONE (08:20)
[2020-10-27] MEDS: cefTRIAXone 2 GM in Sodium Chloride 0.9% 100 ML IV SCH ×2 (09:28→20:56)
[2020-10-27] MEDS ORDERED: SUMAtriptan 25 MG Tab PO PRN (14:05)
[2020-10-27] MEDS ORDERED: Diazepam 5 MG Tab PO ONE (16:56)
[2020-10-27] MEDS ORDERED: Ondansetron 4 MG/2 ML SDV ONE (19:28)
[2020-10-27] MEDS ORDERED: diphenhydrAMINE 50 MG/ML SDV ONE (19:28)
[2020-10-27] MEDS ORDERED: Ketorolac 30 MG/ML SDV ONE (19:28)
[2020-10-27] MEDS ORDERED: Ketorolac 60 MG/2 ML SDV IVPUSH ONE (19:38)
[2020-10-27] MEDS ORDERED: Ondansetron 4 MG/2 ML SDV IVPUSH ONE (19:38)
[2020-10-27] MEDS ORDERED: diphenhydrAMINE 50 MG/ML SDV IVPUSH ONE (19:38)
[2020-10-27] MEDS: Tiotropium Inhaler 18 MCG Inhalation Powder Cap Kit of 5 INH SCH (20:15)
[2020-10-27] MEDS: Insulin Glargine,Human Rec. Analog 100 Units/ML 3 ML Pen SUBCUT SCH (20:18)
[2020-10-27] MEDS: atorvaSTATin 20 MG Tab PO SCH (20:20)
[2020-10-27] MEDS: Pramipexole 0.125 MG Tab PO SCH (20:20)
[2020-10-27] MEDS: Venlafaxine 150 MG Cap.ER PO SCH (20:21)
[2020-10-27] MEDS: Cyclobenzaprine 10 MG Tab PO SCH (20:22)
[2020-10-28] MEDS: Acetaminophen/Codeine 300-30 MG Tab PO PRN (00:02)
[2020-10-28] MEDS: Ampicillin 2 GM in Sodium Chloride 0.9% 100 ML IV SCH ×3 (04:23→12:47)
[2020-10-28] MEDS ORDERED: Acetaminophen 325 MG Tab PO ONE (08:00)
[2020-10-28] MEDS ORDERED: Acetaminophen 325 MG Tab ONE (08:05)
[2020-10-28] MEDS: Cholecalciferol (Vitamin D3) 2,000 Unit Cap PO SCH (09:06)
[2020-10-28] MEDS: Magnesium Oxide 400 MG Tab PO SCH (09:06)
[2020-10-28] MEDS: Aspirin 325 MG Tab.EC PO SCH (09:06)
[2020-10-28] MEDS: Amiodarone 200 MG Tab PO SCH (09:06)
[2020-10-28] MEDS: Potassium Chloride 20 MEQ Tab.ER PO SCH (09:06)
[2020-10-28] MEDS: Metoprolol Succinate 50 MG Tab.ER PO SCH (09:07)
[2020-10-28] MEDS: Ferrous Sulfate 325 MG Tab PO SCH (09:07)
[2020-10-28] MEDS: Gabapentin 300 MG Cap PO SCH (09:07)
[2020-10-28] MEDS: Pantoprazole 40 MG Tab.CR PO SCH (09:07)
[2020-10-28] MEDS: Albuterol 8 GM Inhaler INH SCH ×2 (09:10→12:48)
[2020-10-28] MEDS: Polyethylene Glycol 3350 Powder 510 GM Bot PO SCH (09:19)
[2020-10-28] MEDS: Furosemide 40 MG Tab PO SCH (09:19)
[2020-10-28] MEDS: Losartan 25 MG Tab PO SCH (09:19)
[2020-10-28] MEDS: Nystatin Crm 30 GM Tube TOP SCH (09:20)
[2020-10-28] MEDS: Bumetanide 1 MG Tab PO SCH (09:20)
[2020-10-28] MEDS: cefTRIAXone 2 GM in Sodium Chloride 0.9% 100 ML IV SCH (10:32)
[2020-10-28] MEDS: Insulin Aspart 100 Units/ML 3 ML Pen SUBCUT SCH ×2 (10:59→13:16)
[2020-10-28] MEDS ORDERED: Sodium Chloride 0.9% 500 ML IV SCH (12:30)
[2020-10-28 14:17] VITALS: PULSE 70
[2020-10-28 14:19] VITALS: BP 89/47
--- NOTE | 2020-10-30 07:36 | CT ---
Date of Service: 10/28/20 Clinical Data: r/o PE ENHANCED CHEST CT: Multislice acquisition through the chest with IV contrast was performed. Comparison was made to a prior exam dated 10/06/20. There is a moderate size left pleural effusion and a small right pleural effusion. These have increased in volume from the prior exam. No evidence of PE. No pneumothorax. No aortic aneurysm or dissection. There atelectasis and consolidation of the left lower lobe. Pneumonia should be considered. There are also atelectatic changes in the dependent portions of the right lung and in the right lung base. There are subtle ground-glass opacities noted in both lungs. Viral pneumonia should be considered. The heart is enlarged. There is a moderate-sized pericardial effusion. It was not present on the prior study. The patient is status post median sternotomy in the interval and aortic valve replacement. No hilar or mediastinal adenopathy. The thyroid gland is enlarged. There is degenerative disk disease throughout the thoracic spine. [id number] [facility]
--- NOTE | 2020-10-30 11:53 | CR ---
Date of Service: 10/28/20 Clinical Data: r/o sepsis PA CHEST: Comparison is made to a prior exam dated 10/05/20. The patient is status post median sternotomy. The heart is enlarged. There is calcification of the aortic arch. The pulmonary vasculature appears prominent suggesting pulmonary venous congestion or fluid overload. There is infiltrate and consolidation in the left lower lung. Pneumonia should be considered. There is blunting of the left costophrenic angle consistent with a left pleural effusion. The exam is otherwise unchanged from the prior. [id number] [facility]
[2020-11-02] MEDS ORDERED: Amiodarone 200 MG Tab PO SCH (08:00)
== END 2020-10-28 13:30 | DRG 193 ==
LOC: LB.MS 15:32
PROVIDERS: ADMIT Surgery; ATTEND Surgery
DX: I33.0 Acute and subacute infective endocarditis (principal); R53.1 Weakness; D62 Acute posthemorrhagic anemia; J95.89 Other postprocedural complications and disorders of respiratory system, not elsewhere classified; J98.11 Atelectasis; I11.0 Hypertensive heart disease with heart failure; I50.9 Heart failure, unspecified; E66.9 Obesity, unspecified; Z20.822 Contact with and (suspected) exposure to COVID-19; F41.9 Anxiety disorder, unspecified; F32.9 Major depressive disorder, single episode, unspecified; G47.30 Sleep apnea, unspecified; K21.9 Gastro-esophageal reflux disease without esophagitis; M19.90 Unspecified osteoarthritis, unspecified site; M54.9 Dorsalgia, unspecified; G89.29 Other chronic pain; M85.80 Other specified disorders of bone density and structure, unspecified site; M79.7 Fibromyalgia; N89.8 Other specified noninflammatory disorders of vagina; Z88.8 Allergy status to other drugs, medicaments and biological substances; Z79.84 Long term (current) use of oral hypoglycemic drugs; Z79.899 Other long term (current) drug therapy; Z90.710 Acquired absence of both cervix and uterus; Z79.01 Long term (current) use of anticoagulants; Z95.2 Presence of prosthetic heart valve; Z99.81 Dependence on supplemental oxygen; Z68.42 Body mass index [BMI] 45.0-49.9, adult; Z86.16 Personal history of COVID-19
CPT/HCPCS: 36415; 36600; 71046; 71260; 80048; 80053; 81001; 82803; 82962; 83605; 83735; 85025; 85027; 85651; 86140; 86580; 87040; 87086; 87210; 97161-GP; 97165-GO; 97530-GO; 97535-GO; A0425; A0429; A9270-GY; J0290; J0696; J1200; J1815-GY; J1885; J2405; J7050; J7620-GY; U0002

== ENCOUNTER 2020-11-02 14:28 | Inpatient (IN) | payer BC ==
[2020-11-02] MEDS ORDERED: Tuberculin, PPD 5 Units/0.1 ML 1 ML MDV IDERM ONE (18:12)
[2020-11-02] MEDS ORDERED: Nitroglycerin 0.4 MG Tab.SL SL PRN (19:06)
[2020-11-02] MEDS ORDERED: Glucagon,Human Recombinant 1 MG Vial IM PRN ×2 (19:06→19:18)
[2020-11-02] MEDS ORDERED: 50% Dextrose in Water 50 ML Syringe IVPUSH PRN ×2 (19:06→19:18)
[2020-11-02] MEDS ORDERED: Insulin Detemir 100 Units/ML 3 ML Pen SUBCUT SCH (20:00)
[2020-11-02] MEDS ORDERED: Bumetanide 1 MG Tab PO SCH (20:00)
[2020-11-02] MEDS: Piperacillin/Tazobactam 3.375 GM in Sodium Chloride 0.9% 100 ML IV SCH (20:35)
[2020-11-02] MEDS: Acetaminophen 500 MG Tab PO SCH (20:50)
[2020-11-02] MEDS: Venlafaxine 150 MG Cap.ER PO SCH (20:51)
[2020-11-02] MEDS: Cyclobenzaprine 10 MG Tab PO SCH (20:51)
[2020-11-02] MEDS: Ferrous Sulfate 325 MG Tab PO SCH (20:51)
[2020-11-02] MEDS: Magnesium Oxide 400 MG Tab PO SCH (20:52)
[2020-11-02] MEDS: atorvaSTATin 20 MG Tab PO SCH (20:52)
[2020-11-02] MEDS: Mirtazapine 15 MG Tab PO SCH (20:53)
[2020-11-02] MEDS: Gabapentin 100 MG Cap PO SCH (20:53)
[2020-11-02] MEDS: Nystatin Crm 30 GM Tube TOP SCH (20:54)
[2020-11-02] MEDS: Albuterol/Ipratropium 3.0-0.5 MG/3 ML Neb Soln NEB SCH (20:55)
[2020-11-02] MEDS: Insulin Glargine,Human Rec. Analog 100 Units/ML 3 ML Pen SUBCUT SCH (21:35)
[2020-11-03] MEDS ORDERED: Insulin Lispro 100 Unit/ML 3 ML KwikPen SUBCUT SCH (07:00)
[2020-11-03] MEDS: Insulin Aspart 100 Units/ML 3 ML Pen SUBCUT SCH ×3 (07:45→16:46)
[2020-11-03] MEDS: Amiodarone 200 MG Tab PO SCH (07:56)
[2020-11-03] MEDS: Magnesium Oxide 400 MG Tab PO SCH ×2 (07:56→21:00)
[2020-11-03] MEDS: Potassium Chloride 20 MEQ Tab.ER PO SCH ×3 (07:56→17:12)
[2020-11-03] MEDS: Aspirin 325 MG Tab.EC PO SCH (07:56)
[2020-11-03] MEDS: Losartan 25 MG Tab PO SCH (07:57)
[2020-11-03] MEDS: Gabapentin 100 MG Cap PO SCH ×3 (07:58→21:01)
[2020-11-03] MEDS: Pantoprazole 40 MG Tab.CR PO SCH (07:58)
[2020-11-03] MEDS: Ferrous Sulfate 325 MG Tab PO SCH ×3 (07:58→20:58)
[2020-11-03] MEDS: Acetaminophen 500 MG Tab PO SCH ×3 (07:58→17:13)
[2020-11-03] MEDS: Metoprolol Succinate 50 MG Tab.ER PO SCH (07:58)
[2020-11-03] MEDS ORDERED: Fluconazole 150 MG Tab PO ONE (08:00)
[2020-11-03] MEDS ORDERED: Cholecalciferol (Vitamin D3) 25 MCG Tab PO SCH (08:00)
[2020-11-03] MEDS ORDERED: Warfarin 5 MG Tab PO SCH ×2 (08:00→18:00)
[2020-11-03] MEDS: Bumetanide 1 MG Tab PO SCH ×2 (08:01→15:18)
[2020-11-03] MEDS: Albuterol/Ipratropium 3.0-0.5 MG/3 ML Neb Soln NEB SCH ×4 (08:01→20:57)
[2020-11-03] MEDS: Nystatin Crm 30 GM Tube TOP SCH ×2 (08:05→20:00)
[2020-11-03] MEDS: traMADol 50 MG Tab PO PRN (08:05)
[2020-11-03] MEDS ORDERED: Glucagon,Human Recombinant 1 MG Vial IM PRN (10:24)
[2020-11-03] MEDS ORDERED: 50% Dextrose in Water 50 ML Syringe IVPUSH PRN (10:24)
[2020-11-03] MEDS: Piperacillin/Tazobactam 3.375 GM in Sodium Chloride 0.9% 100 ML IV SCH ×2 (11:23→20:50)
[2020-11-03] MEDS: Insulin Glargine,Human Rec. Analog 100 Units/ML 3 ML Pen SUBCUT SCH (20:56)
[2020-11-03] MEDS: Venlafaxine 150 MG Cap.ER PO SCH (20:58)
[2020-11-03] MEDS: Cyclobenzaprine 10 MG Tab PO SCH (20:59)
[2020-11-03] MEDS: atorvaSTATin 20 MG Tab PO SCH (21:00)
[2020-11-03] MEDS: Mirtazapine 15 MG Tab PO SCH (21:00)
[2020-11-04] MEDS: Acetaminophen 500 MG Tab PO SCH ×4 (02:03→20:54)
[2020-11-04] MEDS: Piperacillin/Tazobactam 3.375 GM in Sodium Chloride 0.9% 100 ML IV SCH ×3 (03:39→20:50)
[2020-11-04] MEDS: traMADol 50 MG Tab PO PRN ×2 (05:48→20:54)
[2020-11-04] MEDS: Ferrous Sulfate 325 MG Tab PO SCH ×3 (07:54→20:54)
[2020-11-04] MEDS: Metoprolol Succinate 50 MG Tab.ER PO SCH (07:54)
[2020-11-04] MEDS: Pantoprazole 40 MG Tab.CR PO SCH (07:54)
[2020-11-04] MEDS: Amiodarone 200 MG Tab PO SCH (07:55)
[2020-11-04] MEDS: Potassium Chloride 20 MEQ Tab.ER PO SCH ×3 (07:55→17:02)
[2020-11-04] MEDS: Losartan 25 MG Tab PO SCH (07:55)
[2020-11-04] MEDS: Magnesium Oxide 400 MG Tab PO SCH ×2 (07:55→20:55)
[2020-11-04] MEDS: Aspirin 325 MG Tab.EC PO SCH (07:55)
[2020-11-04] MEDS: Cholecalciferol (Vitamin D3) 2,000 Unit Cap PO SCH (07:55)
[2020-11-04] MEDS: Albuterol/Ipratropium 3.0-0.5 MG/3 ML Neb Soln NEB SCH ×4 (07:56→20:57)
[2020-11-04] MEDS: Gabapentin 100 MG Cap PO SCH ×3 (07:56→20:55)
[2020-11-04] MEDS: Nystatin Crm 30 GM Tube TOP SCH ×2 (08:00→20:58)
[2020-11-04] MEDS: Bumetanide 1 MG Tab PO SCH ×2 (08:01→15:08)
[2020-11-04] MEDS: Insulin Aspart 100 Units/ML 3 ML Pen SUBCUT SCH ×3 (08:15→16:55)
[2020-11-04] MEDS ORDERED: Warfarin 5 MG Tab ONE (17:01)
[2020-11-04] MEDS ORDERED: Warfarin 2.5 MG Tab ONE (17:02)
[2020-11-04] MEDS ORDERED: Warfarin 7.5 MG Tab PO ONE (18:00)
[2020-11-04] MEDS: atorvaSTATin 20 MG Tab PO SCH (20:54)
[2020-11-04] MEDS: Mirtazapine 15 MG Tab PO SCH (20:54)
[2020-11-04] MEDS: Venlafaxine 150 MG Cap.ER PO SCH (20:54)
[2020-11-04] MEDS: Cyclobenzaprine 10 MG Tab PO SCH (20:55)
[2020-11-04] MEDS: Insulin Glargine,Human Rec. Analog 100 Units/ML 3 ML Pen SUBCUT SCH (21:02)
[2020-11-05] MEDS: Acetaminophen 500 MG Tab PO SCH ×4 (02:07→17:28)
[2020-11-05] MEDS: Piperacillin/Tazobactam 3.375 GM in Sodium Chloride 0.9% 100 ML IV SCH ×3 (03:42→20:07)
[2020-11-05] MEDS: Aspirin 325 MG Tab.EC PO SCH (08:13)
[2020-11-05] MEDS: Albuterol/Ipratropium 3.0-0.5 MG/3 ML Neb Soln NEB SCH ×4 (08:13→17:33)
[2020-11-05] MEDS: Bumetanide 1 MG Tab PO SCH ×2 (08:13→15:04)
[2020-11-05] MEDS: Cholecalciferol (Vitamin D3) 2,000 Unit Cap PO SCH (08:14)
[2020-11-05] MEDS: Pantoprazole 40 MG Tab.CR PO SCH (08:14)
[2020-11-05] MEDS: Amiodarone 200 MG Tab PO SCH (08:14)
[2020-11-05] MEDS: Potassium Chloride 20 MEQ Tab.ER PO SCH ×3 (08:14→17:28)
[2020-11-05] MEDS: Magnesium Oxide 400 MG Tab PO SCH ×2 (08:14→20:07)
[2020-11-05] MEDS: Ferrous Sulfate 325 MG Tab PO SCH ×3 (08:14→20:07)
[2020-11-05] MEDS: Losartan 25 MG Tab PO SCH (08:15)
[2020-11-05] MEDS: Metoprolol Succinate 50 MG Tab.ER PO SCH (08:15)
[2020-11-05] MEDS: Gabapentin 100 MG Cap PO SCH ×3 (08:16→20:07)
[2020-11-05] MEDS: Insulin Aspart 100 Units/ML 3 ML Pen SUBCUT SCH ×3 (08:19→17:48)
[2020-11-05] MEDS: traMADol 50 MG Tab PO PRN ×2 (08:47→20:11)
[2020-11-05] MEDS: Nystatin Crm 30 GM Tube TOP SCH ×2 (08:50→20:08)
[2020-11-05] MEDS ORDERED: Warfarin 7.5 MG Tab PO ONE ×2 (15:00→18:00)
[2020-11-05] MEDS ORDERED: Albuterol/Ipratropium 3.0-0.5 MG/3 ML Neb Soln NEB PRN (17:17)
[2020-11-05] MEDS ORDERED: Warfarin 5 MG Tab ONE (17:25)
[2020-11-05] MEDS ORDERED: Warfarin 2.5 MG Tab ONE (17:25)
[2020-11-05] MEDS: Sodium Chloride 0.9% 10 ML Syringe FLUSH PRN (20:07)
[2020-11-05] MEDS: Venlafaxine 150 MG Cap.ER PO SCH (20:07)
[2020-11-05] MEDS: atorvaSTATin 20 MG Tab PO SCH (20:07)
[2020-11-05] MEDS: Cyclobenzaprine 10 MG Tab PO SCH (20:07)
[2020-11-05] MEDS: Mirtazapine 15 MG Tab PO SCH (20:08)
[2020-11-05] MEDS: Insulin Glargine,Human Rec. Analog 100 Units/ML 3 ML Pen SUBCUT SCH (20:15)
[2020-11-05] MEDS: Acetaminophen/HYDROcodone 325-5 MG Tab PO PRN (21:12)
[2020-11-06] MEDS: Acetaminophen 500 MG Tab PO SCH ×5 (00:29→19:52)
[2020-11-06] MEDS ORDERED: diphenhydrAMINE 25 MG Cap PO ONE (01:10)
[2020-11-06] MEDS ORDERED: diphenhydrAMINE 25 MG Cap ONE (01:13)
[2020-11-06] MEDS: Sodium Chloride 0.9% 10 ML Syringe FLUSH PRN ×4 (03:50→22:00)
[2020-11-06] MEDS: Piperacillin/Tazobactam 3.375 GM in Sodium Chloride 0.9% 100 ML IV SCH ×3 (03:50→20:55)
[2020-11-06] MEDS: Acetaminophen/HYDROcodone 325-5 MG Tab PO PRN ×3 (06:30→20:30)
[2020-11-06] MEDS ORDERED: Fluconazole 150 MG Tab PO ONE (08:00)
[2020-11-06] MEDS: Magnesium Oxide 400 MG Tab PO SCH ×2 (08:39→20:28)
[2020-11-06] MEDS: Potassium Chloride 20 MEQ Tab.ER PO SCH ×3 (08:39→20:28)
[2020-11-06] MEDS: Losartan 25 MG Tab PO SCH (08:40)
[2020-11-06] MEDS: Gabapentin 100 MG Cap PO SCH ×3 (08:40→20:27)
[2020-11-06] MEDS: Aspirin 325 MG Tab.EC PO SCH (08:40)
[2020-11-06] MEDS: Ferrous Sulfate 325 MG Tab PO SCH ×3 (08:40→20:26)
[2020-11-06] MEDS: Metoprolol Succinate 50 MG Tab.ER PO SCH (08:40)
[2020-11-06] MEDS: Amiodarone 200 MG Tab PO SCH (08:40)
[2020-11-06] MEDS: Cholecalciferol (Vitamin D3) 2,000 Unit Cap PO SCH (08:40)
[2020-11-06] MEDS: Pantoprazole 40 MG Tab.CR PO SCH (08:41)
[2020-11-06] MEDS: Nystatin Crm 30 GM Tube TOP SCH ×2 (08:47→20:35)
[2020-11-06] MEDS: Insulin Aspart 100 Units/ML 3 ML Pen SUBCUT SCH ×3 (08:47→18:45)
[2020-11-06] MEDS: Bumetanide 1 MG Tab PO SCH ×2 (09:11→14:47)
[2020-11-06] MEDS: Lactobacillus Acidophilus/Lactobacillus Sporogenes (Probiotic) Tab PO SCH (12:42)
--- NOTE | 2020-11-06 14:39 | PCM.HP.2 ---
H&P History of Present Illness - General Date of Service: 11/03/20 Admit Problem/Dx: Admission Diagnosis/Problem Admission Diagnosis/Problem Pneumonia Source of Information: Patient, Old Records History Limitations: Reports: No Limitations - History of Present Illness Initial Comments - Free Text/Narative: patient was transferred and admitted to our facility for swing bed need for IV Abx by PICC line q 6hr. h/o COVID PNA. 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 After her surgery, She was first admitted for IV Abx, but 2 weeks after the Abx, she developed fever and Dyspnea. Was found to have pneumonia with effusion. Was transferred back to OSH, where she has chest tube to drain her lung. Abx were switched to Zosyn q6hrs. Patient responded well to therapy, and chest tubes were removed. Due to the need for IV abx and close monitoring - she was transferred to swing bed Patient reports that her pain is controlled and she has lost some weight since she was stared on the new diuretics Still on Coumadin, and INR recommendations between 2-3 Chest Pain Score (Numeric/FACES): 8 Lower Back Pain Score (Numeric/FACES): 5 Headache Pain Score (Numeric/FACES): 4 - Related Data Allergies/Adverse Reactions: Allergies Allergy/AdvReac Type Severity Reaction Status Date / Time lisinopril AdvReac Cough Verified 06/24/20 20:03 Home Medications: Home Meds Cyclobenzaprine HCl 10 mg PO QPM 01/24/15 [History] Losartan Potassium 12.5 mg PO DAILY 07/26/17 [History] Mirtazapine 30 mg PO BEDTIME 07/26/17 [History] Nitroglycerin 0.4 mg SL ASDIRECTED PRN 07/26/17 [History] metFORMIN HCl [Metformin HCl] 1,000 mg PO BIDMEALS 07/26/17 [History] Metoprolol Succinate [Toprol Xl] 50 mg PO DAILY 06/24/20 [History] Venlafaxine HCl [Venlafaxine ER] 300 mg PO BEDTIME 06/24/20 [History] hydroCHLOROthiazide [Hydrochlorothiazide] 25 mg PO DAILY 06/24/20 [History] traMADol HCl [Tramadol HCl] 1 tab PO Q6HR PRN MDD 400 06/24/20 [History] Acetaminophen 500 mg PO Q6HR 10/19/20 [History] Amiodarone HCl [Pacerone] 1 tab PO DAILY 10/19/20 [History] Aspirin [Aspirin EC] 325 mg PO DAILY 10/19/20 [History] Bumetanide [Bumex] 2 mg PO BID 10/19/20 [History] Ferrous Sulfate 325 mg PO TID 10/19/20 [History] Gabapentin [Neurontin] 100 mg PO TID 10/19/20 [History] Insulin Detemir [Levemir] 14 unit SUBCUT BEDTIME 10/19/20 [History] Insulin Lispro [Humalog] See Protocol 10/19/20 [History] Pantoprazole Sodium [Protonix] 40 mg PO ACBREAKFAST 10/19/20 [History] atorvaSTATin [Lipitor] 20 mg PO BEDTIME 10/19/20 [History] Albuterol/Ipratropium [Combivent Respimat] 1 puff IH QID 11/02/20 [History] Cholecalciferol (Vitamin D3) [Vitamin D3] 2 cap PO DAILY 11/02/20 [History] Magnesium Oxide 400 mg PO BID 11/02/20 [History] Nystatin [Nystatin Crm] 1 applic TOP BID 11/02/20 [History] Potassium Chloride 20 meq PO TID 11/02/20 [History] Pramipexole Di-HCl [Mirapex] 0.5 mg PO 11/02/20 [History] Sennosides/Docusate Sodium [Senna-Docusate Sodium Tablet] 2 tab PO BID 11/02/20 [History] Warfarin [Coumadin] 1 tab PO DAILY 11/02/20 [History] Past Medical History HEENT History: Reports: Allergic Rhinitis Cardiovascular History: Reports: Heart Valve Replacement, Hypertension, [place] Respiratory History: Reports: Sleep Apnea Gastrointestinal History: Reports: GERD Genitourinary History: Reports: Other (See Below) Other Genitourinary History: urgency, kidney stones Musculoskeletal History: Reports: Arthritis, Back Pain, Chronic, Fibromyalgia Neurological History: Reports: Migraines, Other (See Below) Other Neuro History: restless leg syndrome Psychiatric History: Reports: Depression Endocrine/Metabolic History: Reports: Diabetes, Type II, Obesity/BMI 30+, Osteopenia Hematologic History: Reports: Anemia, Blood Transfusion(s) Oncologic (Cancer) History: Reports: None - Infectious Disease History Infectious Disease History: Reports: Chicken Pox, Novel Coronavirus - Past Surgical History HEENT Surgical History: Reports: None Cardiovascular Surgical History: Reports: None Respiratory Surgical History: Reports: None GI Surgical History: Reports: None Other GI Surgeries/Procedures: umbilical hernia repair Female Surgical History: Reports: D&C, Hysterectomy, Lithotripsy/ESWL Endocrine Surgical History: Reports: None Neurological Surgical History: Reports: None, Other (See Below) Other Neurological Surgeries/Procedures: injections - Musculoskeletal Surgical History: Reports: Carpal Tunnel Social & Family History - Family History Family Medical History: No Pertinent Family History - Caffeine Use Caffeine Use: Reports: Coffee - Recreational Drug Use Recreational Drug Use: No H&P Review of Systems - Review of Systems: Review Of Systems: See Below General: Reports: No Symptoms. Denies: Fever, Chills HEENT: Reports: No Symptoms Pulmonary: Reports: Shortness of Breath Cardiovascular: Reports: No Symptoms Gastrointestinal: Reports: No Symptoms Genitourinary: Reports: No Symptoms Musculoskeletal: Reports: No Symptoms Skin: Reports: No Symptoms Psychiatric: Reports: No Symptoms Exam - Exam Exam: See Below - Vital Signs Vital Signs: Last Vital Signs Temp 36.1 C 11/06/20 08:00 Pulse 88 11/06/20 08:40 Resp 18 11/06/20 08:00 BP 130/74 11/06/20 08:40 Pulse Ox 95 11/06/20 08:00 Weight: 111.674 kg - Exam Quality Assessment: Supplemental Oxygen General: Alert, Oriented HEENT: PERRLA Neck: Supple Lungs: Clear to Auscultation Cardiovascular: Regular Rate, Regular Rhythm GI/Abdominal Exam: Normal Bowel Sounds - Patient Data Lab Results Last 24 hrs: Laboratory Results - last 24 hr 11/05/20 11/06/20 Range/Units 19:58 09:00 PT 18.0 H (9.0-11.5) sec INR 1.8 (1.0-3.5) POC Glucose 175 H (74-110) mg/dL Sepsis Event Note - Evaluation Sepsis Screening Result: No Definite Risk - Focused Exam Vital Signs: Vital Signs Temp Pulse Pulse Resp BP BP Pulse Ox 11/06/20 08:40 88 130/74 11/06/20 08:00 36.1 C 88 18 130/74 95 - Problem List (1) Infective endocarditis SNOMED Code(s): 442102199 ICD Code: I33.0 - ACUTE AND SUBACUTE INFECTIVE ENDOCARDITIS Status: Acute Priority: High Current Visit: Yes Qualifiers: Infective endocarditis organism: bacterial (2) Bacterial pneumonia SNOMED Code(s): 40751579 ICD Code: J15.9 - UNSPECIFIED BACTERIAL PNEUMONIA Status: Acute Priority: Medium Current Visit: Yes (3) CHF, Congestive heart failure SNOMED Code(s): 56709802 ICD Code: I50.9 - HEART FAILURE, UNSPECIFIED Status: Chronic Priority: Medium Current Visit: No Problem List Initiated/Reviewed/Updated: Yes Orders Last 24hrs: Active Orders 24 hr Category Date Time Status CLOS DIFFICILE PCR W/REFLEX [RM] Routine Lab 11/06/20 11:51 Ordered INR,PT,PROTHROMBIN TIME [COAG] Routine Lab 11/07/20 08:00 Ordered Acidophilus/Lactobac Spor [Acidolphilus Extra Strength] Med 11/06/20 12:00 Active 1 tab PO DAILY Albuterol/Ipratropium [DuoNeb 3.0-0.5 MG/3 ML] Med 11/05/20 17:17 Active 3 ml NEB Q6H PRN Melatonin Med 11/06/20 11:18 Active 6 mg PO BEDTIME PRN Sodium Chloride 0.9% [Saline Flush] Med 11/06/20 03:50 Active 10 ml FLUSH ASDIRECTED PRN Warfarin [Coumadin] Med 11/06/20 18:00 Once 7.5 mg PO ONETIME ONE diphenhydrAMINE [Benadryl] Med 11/06/20 11:16 Active 50 mg PO BEDTIME PRN Medication Orders Acetaminophen (Tylenol Extra Strength) 500 mg PO Q6HR [facility] Last Admin: 11/06/20 12:11 Dose: 500 mg Documented by: Admin: 11/06/20 06:29 Dose: 500 mg Documented by: [id number] Admin: 11/06/20 00:29 Dose: Not Given Documented by: Admin: 11/05/20 17:28 Dose: 500 mg Documented by: Admin: 11/05/20 11:17 Dose: 500 mg Documented by: Admin: 11/05/20 08:15 Dose: 500 mg Documented by: Admin: 11/05/20 02:07 Dose: Not Given Documented by: Admin: 11/04/20 20:54 Dose: 500 mg Documented by: Admin: 11/04/20 11:48 Dose: 500 mg Documented by: Admin: 11/04/20 05:47 Dose: 500 mg Documented by: Admin: 11/04/20 02:03 Dose: Not Given Documented by: Admin: 11/03/20 17:13 Dose: 500 mg Documented by: Admin: 11/03/20 11:23 Dose: 500 mg Documented by: Admin: 11/03/20 07:58 Dose: 500 mg Documented by: Admin: 11/02/20 20:50 Dose: 500 mg Documented by: ONLA Hydrocodone Bitart/Acetaminophen ([place] 325-5 Mg) 1 tab PO Q4H PRN PRN Reason: Pain (moderate 4-6) Last Admin: 11/06/20 06:30 Dose: 1 tab Documented by: Admin: 11/05/20 21:12 Dose: 1 tab Documented by: ONEIL Albuterol/Ipratropium (Duoneb 3.0-0.5 Mg/3 Ml) 3 ml NEB Q6H PRN PRN Reason: Dyspnea Amiodarone HCl (Cordarone) 200 mg PO DAILY [facility] Last Admin: 11/06/20 08:40 Dose: 200 mg Documented by: Admin: 11/05/20 08:14 Dose: 200 mg Documented by: Admin: 11/04/20 07:55 Dose: 200 mg Documented by: Admin: 11/03/20 07:56 Dose: 200 mg Documented by: PAMELA Aspirin (Ecotrin) 325 mg PO DAILY [facility] Last Admin: 11/06/20 08:40 Dose: 325 mg Documented by: Admin: 11/05/20 08:13 Dose: 325 mg Documented by: Admin: 11/04/20 07:55 Dose: 325 mg Documented by: Admin: 11/03/20 07:56 Dose: 325 mg Documented by: PAMELA Atorvastatin Calcium (Lipitor) 20 mg PO BEDTIME [facility] Last Admin: 11/05/20 20:07 Dose: 20 mg Documented by: Admin: 11/04/20 20:54 Dose: 20 mg Documented by: Admin: 11/03/20 21:00 Dose: 20 mg Documented by: Admin: 11/02/20 20:52 Dose: 20 mg Documented by: NOLA Bumetanide (Bumex) 2 mg PO BID@0900,1500 [facility] Last Admin: 11/06/20 09:11 Dose: 2 mg Documented by: Admin: 11/05/20 15:04 Dose: 2 mg Documented by: Admin: 11/05/20 08:13 Dose: 2 mg Documented by: Admin: 11/04/20 15:08 Dose: 2 mg Documented by: Admin: 11/04/20 08:01 Dose: 2 mg Documented by: Admin: 11/03/20 15:18 Dose: 2 mg Documented by: Admin: 11/03/20 08:01 Dose: 2 mg Documented by: PAMELA Cholecalciferol (Vitamin D3) 2,000 unit PO DAILY [facility] Last Admin: 11/06/20 08:40 Dose: 2,000 unit Documented by: Admin: 11/05/20 08:14 Dose: 2,000 unit Documented by: Admin: 11/04/20 07:55 Dose: 2,000 unit Documented by: PAMELA Cyclobenzaprine HCl (Flexeril) 10 mg PO QPM [facility] Last Admin: 11/05/20 20:07 Dose: 10 mg Documented by: Admin: 11/04/20 20:55 Dose: 10 mg Documented by: Admin: 11/03/20 20:59 Dose: 10 mg Documented by: Admin: 11/02/20 20:51 Dose: 10 mg Documented by: NOLA Dextrose/Water (Dextrose 50% In Water) 50 ml IVPUSH ASDIRECTED PRN PRN Reason: Hypoglycemia Diphenhydramine HCl (Benadryl) 50 mg PO BEDTIME PRN PRN Reason: Sleep Ferrous Sulfate (Ferrous Sulfate) 325 mg PO TID [facility] Admin: 11/06/20 08:40 Dose: 325 mg Documented by: Admin: 11/05/20 20:07 Dose: 325 mg Documented by: Admin: 11/05/20 15:05 Dose: 325 mg Documented by: Admin: 11/05/20 08:14 Dose: 325 mg Documented by: Admin: 11/04/20 20:54 Dose: 325 mg Documented by: Admin: 11/04/20 15:08 Dose: 325 mg Documented by: Admin: 11/04/20 07:54 Dose: 325 mg Documented by: Admin: 11/03/20 20:58 Dose: 325 mg Documented by: Admin: 11/03/20 15:17 Dose: 325 mg Documented by: Admin: 11/03/20 07:58 Dose: 325 mg Documented by: Admin: 11/02/20 20:51 Dose: 325 mg Documented by: [id number] Gabapentin (Neurontin) 100 mg PO TID [facility] Admin: 11/06/20 08:40 Dose: 100 mg Documented by: Admin: 11/05/20 20:07 Dose: 100 mg Documented by: Admin: 11/05/20 15:04 Dose: 100 mg Documented by: Admin: 11/05/20 08:16 Dose: 100 mg Documented by: Admin: 11/04/20 20:55 Dose: 100 mg Documented by: Admin: 11/04/20 15:08 Dose: 100 mg Documented by: Admin: 11/04/20 07:56 Dose: 100 mg Documented by: Admin: 11/03/20 21:01 Dose: 100 mg Documented by: Admin: 11/03/20 15:17 Dose: 100 mg Documented by: Admin: 11/03/20 07:58 Dose: 100 mg Documented by: Admin: 11/02/20 20:53 Dose: 100 mg Documented by: [id number] Glucagon (Glucagen) 1 mg IM ASDIRECTED PRN PRN Reason: Hypoglycemia Glucagon (Glucagen) 1 mg IM ASDIRECTED PRN PRN Reason: Hypoglycemia Piperacillin Sod/Tazobactam (Sod 3.375 gm/ Sodium Chloride) 100 mls @ 100 mls/hr IV Q8H [facility] Stop: 11/21/20 23:59 Last Admin: 11/06/20 12:11 Dose: 100 mls/hr Documented by: Admin: 11/06/20 12:11 Dose: 100 mls/hr Documented by: Admin: 11/06/20 03:50 Dose: 100 mls/hr Documented by: Admin: 11/05/20 20:07 Dose: 100 mls/hr Documented by: Admin: 11/05/20 11:18 Dose: 100 mls/hr Documented by: Admin: 11/05/20 03:42 Dose: 100 mls/hr Documented by: Admin: 11/04/20 20:50 Dose: 100 mls/hr Documented by: Admin: 11/04/20 11:53 Dose: 100 mls/hr Documented by: Admin: 11/04/20 03:39 Dose: 100 mls/hr Documented by: Admin: 11/03/20 20:50 Dose: 100 mls/hr Documented by: Admin: 11/03/20 11:23 Dose: 100 mls/hr Documented by: Admin: 11/02/20 20:35 Dose: 100 mls/hr Documented by: [id number] Insulin Aspart (Novolog) 0 unit SUBCUT TID@0800,1200,1700 [facility]; Protocol Last Admin: 11/06/20 12:12 Dose: 166 unit Documented by: JACK Cosigned by: SILVERIO Admin: 11/06/20 08:47 Dose: Not Given Documented by: Admin: 11/05/20 17:48 Dose: Not Given Documented by: Admin: 11/05/20 11:36 Dose: 1 unit Documented by: PAMELA Cosigned by: VIN Admin: 11/05/20 08:19 Dose: Not Given Documented by: Admin: 11/04/20 16:55 Dose: 1 unit Documented by: PAMELA Cosigned by: SILVERIO Admin: 11/04/20 12:02 Dose: Not Given Documented by: Admin: 11/04/20 08:15 Dose: 1 unit Documented by: PAMELA Cosigned by: LUIS Insulin Glargine (Lantus Solostar) 14 units SUBCUT BEDTIME [facility] Last Admin: 11/05/20 20:15 Dose: 14 units Documented by: ONEIL Cosigned by: NOLA Admin: 11/04/20 21:02 Dose: 14 units Documented by: ONEIL Cosigned by: NOLA Admin: 11/03/20 20:56 Dose: 14 units Documented by: NOLA Cosigned by: ONEIL Admin: 11/02/20 21:35 Dose: 14 units Documented by: NOLA Cosigned by: EDGAR Lactobacillus Acidophilus (Acidolphilus Extra Strength) 1 tab PO DAILY [facility] Admin: 11/06/20 12:42 Dose: 1 tab Documented by: JACK Losartan Potassium (Cozaar) 12.5 mg PO DAILY [facility] Admin: 11/06/20 08:40 Dose: 12.5 mg Documented by: Admin: 11/05/20 08:15 Dose: 12.5 mg Documented by: Admin: 11/04/20 07:55 Dose: 12.5 mg Documented by: Admin: 11/03/20 07:57 Dose: 12.5 mg Documented by: PAMELA Magnesium Oxide (Magnesium Oxide) 400 mg PO BID [facility] Admin: 11/06/20 08:39 Dose: 400 mg Documented by: Admin: 11/05/20 20:07 Dose: 400 mg Documented by: Admin: 11/05/20 08:14 Dose: 400 mg Documented by: Admin: 11/04/20 20:55 Dose: 400 mg Documented by: Admin: 11/04/20 07:55 Dose: 400 mg Documented by: Admin: 11/03/20 21:00 Dose: 400 mg Documented by: Admin: 11/03/20 07:56 Dose: 400 mg Documented by: Admin: 11/02/20 20:52 Dose: 400 mg Documented by: [id number] Melatonin (Melatonin) 6 mg PO BEDTIME PRN PRN Reason: Sleep Metoprolol Succinate (Toprol Xl) 50 mg PO DAILY [facility] Admin: 11/06/20 08:40 Dose: 50 mg Documented by: Admin: 11/05/20 08:15 Dose: 50 mg Documented by: Admin: 11/04/20 07:54 Dose: 50 mg Documented by: Admin: 11/03/20 07:58 Dose: 50 mg Documented by: PAMELA Mirtazapine (Remeron) 30 mg PO BEDTIME [facility] Admin: 11/05/20 20:08 Dose: 30 mg Documented by: Admin: 11/04/20 20:54 Dose: 30 mg Documented by: Admin: 11/03/20 21:00 Dose: 30 mg Documented by: Admin: 11/02/20 20:53 Dose: 30 mg Documented by: [id number] Nitroglycerin (Nitrostat) 0.4 mg SL ASDIRECTED PRN PRN Reason: Chest Pain Nystatin (Nystatin Crm) 0 gm TOP BID [facility] Admin: 11/06/20 08:47 Dose: 1 applic Documented by: Admin: 11/05/20 20:08 Dose: 1 applic Documented by: Admin: 11/05/20 08:50 Dose: 1 applic Documented by: Admin: 11/04/20 20:58 Dose: 1 applic Documented by: Admin: 11/04/20 08:00 Dose: 1 applic Documented by: Admin: 11/03/20 20:00 Dose: 1 applic Documented by: Admin: 11/03/20 08:05 Dose: 1 applic Documented by: Admin: 11/02/20 20:54 Dose: 1 applic Documented by: [id number] Pantoprazole Sodium (Protonix) 40 mg PO ACBREAKFAST [facility] Admin: 11/06/20 08:41 Dose: 40 mg Documented by: Admin: 11/05/20 08:14 Dose: 40 mg Documented by: Admin: 11/04/20 07:54 Dose: 40 mg Documented by: Admin: 11/03/20 07:58 Dose: 40 mg Documented by: PAMELA Potassium Chloride (Klor-Con M20) 20 meq PO TIDMEALS MARIELENA Last Admin: 11/06/20 12:12 Dose: 20 meq Documented by: Admin: 11/06/20 08:39 Dose: 20 meq Documented by: Admin: 11/05/20 17:28 Dose: 20 meq Documented by: Admin: 11/05/20 11:17 Dose: 20 meq Documented by: Admin: 11/05/20 08:14 Dose: 20 meq Documented by: Admin: 11/04/20 17:02 Dose: 20 meq Documented by: Admin: 11/04/20 11:48 Dose: 20 meq Documented by: Admin: 11/04/20 07:55 Dose: 20 meq Documented by: Admin: 11/03/20 17:12 Dose: 20 meq Documented by: Admin: 11/03/20 11:23 Dose: 20 meq Documented by: Admin: 11/03/20 07:56 Dose: 20 meq Documented by: PAMELA Senna/Docusate Sodium (Senna Plus) 2 tab PO BID [facility] Last Admin: 11/06/20 08:40 Dose: 2 tab Documented by: Admin: 11/05/20 20:07 Dose: 2 tab Documented by: Admin: 11/05/20 08:14 Dose: 2 tab Documented by: Admin: 11/04/20 20:55 Dose: 2 tab Documented by: Admin: 11/04/20 07:54 Dose: 2 tab Documented by: Admin: 11/03/20 20:59 Dose: 2 tab Documented by: Admin: 11/03/20 07:56 Dose: 2 tab Documented by: Admin: 11/02/20 20:53 Dose: 2 tab Documented by: NOLA Sodium Chloride (Saline Flush) 10 ml FLUSH ASDIRECTED PRN PRN Reason: IV Use Last Admin: 11/06/20 03:50 Dose: 10 ml Documented by: Admin: 11/05/20 20:07 Dose: 10 ml Documented by: ONEIL Tramadol HCl (Ultram) 50 mg PO Q6HR PRN PRN Reason: Pain Last Admin: 11/05/20 20:11 Dose: 50 mg Documented by: Admin: 11/05/20 08:47 Dose: 50 mg Documented by: Admin: 11/04/20 20:54 Dose: 50 mg Documented by: Admin: 11/04/20 05:48 Dose: 50 mg Documented by: Admin: 11/03/20 08:05 Dose: 50 mg Documented by: PAMELA Venlafaxine HCl (Effexor Xr) 300 mg PO BEDTIME [facility]IE[facility] Last Admin: 11/05/20 20:07 Dose: 300 mg Documented by: Admin: 11/04/20 20:54 Dose: 300 mg Documented by: Admin: 11/03/20 20:58 Dose: 300 mg Documented by: [email or web address] Admin: 11/02/20 20:51 Dose: 300 mg Documented by: [id number] Warfarin Sodium (Coumadin) 7.5 mg PO ONETIME ONE Stop: 11/06/20 18:01 Assessment/Plan Comment:: - Will continue with zosyn IV q6hrs for 2 weeks - Coumadin check daily until INR 2-3 - Continue use Incentive spirometry hourly and nebs as needed - Bumex BID - daily weight check. low salt diet - h/o MEMO -keep on BiPAP - resume rest of home meds as before
--- NOTE | 2020-11-06 17:40 | PCM.PN ---
- General Info Date of Service: 11/06/20 Subjective Update: Patient notes improvement today. She denies any fever or chills and feels stronger. No concerns at this time. - Review of Systems General: Reports: Weakness, Fatigue HEENT: Reports: No Symptoms Pulmonary: Reports: Shortness of Breath Cardiovascular: Reports: No Symptoms Gastrointestinal: Reports: No Symptoms Genitourinary: Reports: No Symptoms Musculoskeletal: Reports: No Symptoms Skin: Reports: No Symptoms Neurological: Reports: Weakness Psychiatric: Reports: No Symptoms - Patient Data Vitals - Most Recent: Last Vital Signs Temp 36.1 C 11/06/20 08:00 Pulse 88 11/06/20 08:40 Resp 18 11/06/20 08:00 BP 130/74 11/06/20 08:40 Pulse Ox 95 11/06/20 08:00 Weight - Most Recent: 111.674 kg I&O - Last 24 Hours: Intake & Output 11/06/20 11/06/20 11/06/20 06:59 14:59 22:59 Intake Total 650 Output Total 300 Balance 350 Lab Results Last 24 Hours: Laboratory Results - last 24 hr 11/05/20 11/06/20 Range/Units 19:58 09:00 PT 18.0 H (9.0-11.5) sec INR 1.8 (1.0-3.5) POC Glucose 175 H (74-110) mg/dL Med Orders - Current: Current Medications Acetaminophen (Tylenol Extra Strength) 500 mg PO Q6HR [facility] Last Admin: 11/06/20 12:11 Dose: 500 mg Documented by: Hydrocodone Bitart/Acetaminophen ([place] 325-5 Mg) 1 tab PO Q4H PRN PRN Reason: Pain (moderate 4-6) Last Admin: 11/06/20 14:50 Dose: 1 tab Documented by: Albuterol/Ipratropium (Duoneb 3.0-0.5 Mg/3 Ml) 3 ml NEB Q6H PRN PRN Reason: Dyspnea Amiodarone HCl (Cordarone) 200 mg PO DAILY [facility] Last Admin: 11/06/20 08:40 Dose: 200 mg Documented by: Aspirin (Ecotrin) 325 mg PO DAILY [facility] Last Admin: 11/06/20 08:40 Dose: 325 mg Documented by: Atorvastatin Calcium (Lipitor) 20 mg PO BEDTIME [facility] Last Admin: 11/05/20 20:07 Dose: 20 mg Documented by: Bumetanide (Bumex) 2 mg PO BID@0900,1500 [facility] Last Admin: 11/06/20 14:47 Dose: 2 mg Documented by: Cholecalciferol (Vitamin D3) 2,000 unit PO DAILY [facility] Last Admin: 11/06/20 08:40 Dose: 2,000 unit Documented by: Cyclobenzaprine HCl (Flexeril) 10 mg PO QPM [facility] Last Admin: 11/05/20 20:07 Dose: 10 mg Documented by: Dextrose/Water (Dextrose 50% In Water) 50 ml IVPUSH ASDIRECTED PRN PRN Reason: Hypoglycemia Diphenhydramine HCl (Benadryl) 50 mg PO BEDTIME PRN PRN Reason: Sleep Ferrous Sulfate (Ferrous Sulfate) 325 mg PO TID [facility] Last Admin: 11/06/20 14:47 Dose: 325 mg Documented by: Gabapentin (Neurontin) 100 mg PO TID [facility] Last Admin: 11/06/20 14:47 Dose: 100 mg Documented by: Glucagon (Glucagen) 1 mg IM ASDIRECTED PRN PRN Reason: Hypoglycemia Glucagon (Glucagen) 1 mg IM ASDIRECTED PRN PRN Reason: Hypoglycemia Piperacillin Sod/Tazobactam (Sod 3.375 gm/ Sodium Chloride) 100 mls @ 100 mls/hr IV Q8H [facility] Stop: 11/21/20 23:59 Last Admin: 11/06/20 12:11 Dose: 100 mls/hr Documented by: Insulin Aspart (Novolog) 0 unit SUBCUT TID@0800,1200,1700 [facility]; Protocol Last Admin: 11/06/20 12:12 Dose: 166 unit Documented by: Insulin Glargine (Lantus Solostar) 14 units SUBCUT BEDTIME [facility] Last Admin: 11/05/20 20:15 Dose: 14 units Documented by: Lactobacillus Acidophilus (Acidolphilus Extra Strength) 1 tab PO DAILY [facility] Last Admin: 11/06/20 12:42 Dose: 1 tab Documented by: Losartan Potassium (Cozaar) 12.5 mg PO DAILY [facility] Last Admin: 11/06/20 08:40 Dose: 12.5 mg Documented by: Magnesium Oxide (Magnesium Oxide) 400 mg PO BID [facility] Last Admin: 11/06/20 08:39 Dose: 400 mg Documented by: Melatonin (Melatonin) 6 mg PO BEDTIME PRN PRN Reason: Sleep Metoprolol Succinate (Toprol Xl) 50 mg PO DAILY [facility] Last Admin: 11/06/20 08:40 Dose: 50 mg Documented by: Mirtazapine (Remeron) 30 mg PO BEDTIME [facility] Last Admin: 11/05/20 20:08 Dose: 30 mg Documented by: Nitroglycerin (Nitrostat) 0.4 mg SL ASDIRECTED PRN PRN Reason: Chest Pain Nystatin (Nystatin Crm) 0 gm TOP BID [facility] Last Admin: 11/06/20 08:47 Dose: 1 applic Documented by: Pantoprazole Sodium (Protonix) 40 mg PO ACBREAKFAST [facility] Last Admin: 11/06/20 08:41 Dose: 40 mg Documented by: Potassium Chloride (Klor-Con M20) 20 meq PO TIDMEALS [facility] Last Admin: 11/06/20 12:12 Dose: 20 meq Documented by: Senna/Docusate Sodium (Senna Plus) 2 tab PO BID [facility] Last Admin: 11/06/20 08:40 Dose: 2 tab Documented by: Sodium Chloride (Saline Flush) 10 ml FLUSH ASDIRECTED PRN PRN Reason: IV Use Last Admin: 11/06/20 03:50 Dose: 10 ml Documented by: Tramadol HCl (Ultram) 50 mg PO Q6HR PRN PRN Reason: Pain Last Admin: 11/05/20 20:11 Dose: 50 mg Documented by: Venlafaxine HCl (Effexor Xr) 300 mg PO BEDTIME [facility] Last Admin: 11/05/20 20:07 Dose: 300 mg Documented by: Warfarin Sodium (Coumadin) 7.5 mg PO ONETIME ONE Stop: 11/06/20 18:01 Discontinued Medications Albuterol/Ipratropium (Duoneb 3.0-0.5 Mg/3 Ml) 3 ml NEB QID [facility] Last Admin: 11/05/20 17:33 Dose: Not Given Documented by: Bumetanide (Bumex) 2 mg PO BID [facility] Diphenhydramine HCl (Benadryl) Confirm Administered Dose 25 mg .ROUTE .STK-MED ONE Stop: 11/06/20 01:14 Last Admin: 11/06/20 01:33 Dose: Not Given Documented by: Diphenhydramine HCl (Benadryl) 25 mg PO ONETIME ONE Stop: 11/06/20 01:11 Last Admin: 11/06/20 01:30 Dose: 25 mg Documented by: Fluconazole (Diflucan) 150 mg PO ONETIME ONE Stop: 11/03/20 08:01 Last Admin: 11/03/20 08:00 Dose: 150 mg Documented by: [facility]ulin [facility]) [facility] Last Admin: 11/03/20 16:46 Dose: 1 unit Documented by: Insulin Human Lispro [facility]al[facility]) [facility]; [facility] Last Admin: 11/04/20 03:17 Dose: Not Given Documented by: Tuberculin PPD (Aplisol) 5 unit IDERM ONETIME ONE Stop: 11/02/20 18:13 Last Admin: 11/03/20 03:50 Dose: Not Given Documented by: Warfarin Sodium (Coumadin) 5 mg PO DAILY [facility] Last Admin: 11/04/20 03:16 Dose: Not Given Documented by: Warfarin Sodium (Coumadin) 5 mg PO DAILY@1800 [facility] Last Admin: 11/03/20 17:12 Dose: 5 mg Documented by: Warfarin Sodium (Coumadin) 7.5 mg PO ONETIME ONE Stop: 11/04/20 18:01 Last Admin: 11/04/20 17:01 Dose: 7.5 mg Documented by: Warfarin Sodium (Coumadin) Confirm Administered Dose 5 mg .ROUTE .STK-MED ONE Stop: 11/04/20 17:02 Last Admin: 11/04/20 18:55 Dose: Not Given Documented by: Warfarin Sodium (Coumadin) Confirm Administered Dose 2.5 mg .ROUTE .STK-MED ONE Stop: 11/04/20 17:03 Last Admin: 11/04/20 18:55 Dose: Not Given Documented by: Warfarin Sodium (Coumadin) 7.5 mg PO ONETIME ONE Stop: 11/05/20 15:01 Warfarin Sodium (Coumadin) 7.5 mg PO ONETIME ONE Stop: 11/05/20 18:01 Last Admin: 11/05/20 17:28 Dose: 7.5 mg Documented by: Warfarin Sodium (Coumadin) Confirm Administered Dose 5 mg .ROUTE .STK-MED ONE Stop: 11/05/20 17:26 Last Admin: 11/05/20 17:29 Dose: Not Given Documented by: Warfarin Sodium (Coumadin) Confirm Administered Dose 2.5 mg .ROUTE .STK-MED ONE Stop: 11/05/20 17:26 Last Admin: 11/05/20 17:28 Dose: Not Given Documented by: - Exam General: Alert, Oriented, Cooperative HEENT: Pupils Equal, Pupils Reactive, EOMI Neck: Supple Lungs: Clear to Auscultation, Normal Respiratory Effort Cardiovascular: Regular Rate, Regular Rhythm GI/Abdominal Exam: Normal Bowel Sounds Extremities: Normal Inspection Skin: Warm, Dry, Intact Sepsis Event Note - Evaluation Sepsis Screening Result: No Definite Risk - Focused Exam Vital Signs: Vital Signs Temp Pulse Pulse Resp BP BP Pulse Ox 11/06/20 08:40 88 130/74 11/06/20 08:00 36.1 C 88 18 130/74 95 - Problem List Review Problem List Initiated/Reviewed/Updated: Yes - My Orders Last 24 Hours: My Active Orders 11/06/20 11:16 diphenhydrAMINE [Benadryl] 50 mg PO BEDTIME PRN 11/06/20 11:18 Melatonin 6 mg PO BEDTIME PRN 11/06/20 11:51 CLOS DIFFICILE PCR W/REFLEX [RM] Routine 11/06/20 12:00 Acidophilus/Lactobac Spor [Acidolphilus Extra Strength] 1 tab PO DAILY 11/06/20 18:00 Warfarin [Coumadin] 7.5 mg PO ONETIME ONE 11/07/20 08:00 INR,PT,PROTHROMBIN TIME [COAG] Routine - Plan Plan:: - Will continue with zosyn IV q6hrs for 2 weeks - Coumadin check daily until INR 2-3 - Continue use Incentive spirometry hourly and nebs as needed - Bumex BID - daily weight check. low salt diet - h/o MEMO -keep on BiPAP - resume rest of home meds as before 11/06/20 Continue Zosyn as directed. Coumadin f/u tomorrow. No changes to Warfarin dose at this time. Continue Incentive Spirometry. Continue daily weights. Holding senna due to loose and water stools - f/u C. Diff testing.
[2020-11-06] MEDS ORDERED: Warfarin 7.5 MG Tab PO ONE (18:00)
[2020-11-06] MEDS ORDERED: Warfarin 5 MG Tab ONE (19:21)
[2020-11-06] MEDS ORDERED: Warfarin 2.5 MG Tab ONE (19:21)
[2020-11-06] MEDS: diphenhydrAMINE 50 MG Cap PO PRN (20:26)
[2020-11-06] MEDS: atorvaSTATin 20 MG Tab PO SCH (20:26)
[2020-11-06] MEDS: Venlafaxine 150 MG Cap.ER PO SCH (20:27)
[2020-11-06] MEDS: Cyclobenzaprine 10 MG Tab PO SCH (20:28)
[2020-11-06] MEDS: Mirtazapine 15 MG Tab PO SCH (20:28)
[2020-11-06] MEDS: Melatonin 3 MG Tab PO PRN (20:34)
[2020-11-06] MEDS: Insulin Glargine,Human Rec. Analog 100 Units/ML 3 ML Pen SUBCUT SCH (20:46)
[2020-11-07] MEDS: Acetaminophen 500 MG Tab PO SCH ×4 (01:03→17:52)
[2020-11-07] MEDS: Acetaminophen/HYDROcodone 325-5 MG Tab PO PRN ×3 (02:17→23:13)
[2020-11-07] MEDS: traMADol 50 MG Tab PO PRN ×2 (03:37→10:50)
[2020-11-07] MEDS: Piperacillin/Tazobactam 3.375 GM in Sodium Chloride 0.9% 100 ML IV SCH ×3 (05:57→22:37)
[2020-11-07] MEDS: Pantoprazole 40 MG Tab.CR PO SCH ×2 (05:59→06:24)
[2020-11-07] MEDS: Sodium Chloride 0.9% 10 ML Syringe FLUSH PRN ×2 (07:31→15:52)
[2020-11-07] MEDS: Ferrous Sulfate 325 MG Tab PO SCH ×3 (07:41→20:07)
[2020-11-07] MEDS: Magnesium Oxide 400 MG Tab PO SCH ×2 (07:41→20:07)
[2020-11-07] MEDS: Losartan 25 MG Tab PO SCH (07:41)
[2020-11-07] MEDS: Cholecalciferol (Vitamin D3) 2,000 Unit Cap PO SCH (07:41)
[2020-11-07] MEDS: Aspirin 325 MG Tab.EC PO SCH (07:41)
[2020-11-07] MEDS: Lactobacillus Acidophilus/Lactobacillus Sporogenes (Probiotic) Tab PO SCH (07:41)
[2020-11-07] MEDS: Potassium Chloride 20 MEQ Tab.ER PO SCH ×3 (07:41→17:53)
[2020-11-07] MEDS: Gabapentin 100 MG Cap PO SCH ×3 (07:42→20:07)
[2020-11-07] MEDS: Amiodarone 200 MG Tab PO SCH (07:42)
[2020-11-07] MEDS: Metoprolol Succinate 50 MG Tab.ER PO SCH (07:42)
[2020-11-07] MEDS: Nystatin Crm 30 GM Tube TOP SCH ×2 (07:44→20:08)
[2020-11-07] MEDS: Insulin Aspart 100 Units/ML 3 ML Pen SUBCUT SCH ×3 (08:00→18:00)
[2020-11-07] MEDS: Bumetanide 1 MG Tab PO SCH ×2 (09:00→14:44)
[2020-11-07] MEDS ORDERED: Warfarin 5 MG Tab PO ONE (18:00)
[2020-11-07] MEDS: atorvaSTATin 20 MG Tab PO SCH (20:07)
[2020-11-07] MEDS: Cyclobenzaprine 10 MG Tab PO SCH (20:07)
[2020-11-07] MEDS: Venlafaxine 150 MG Cap.ER PO SCH (20:07)
[2020-11-07] MEDS: Mirtazapine 15 MG Tab PO SCH (20:07)
[2020-11-07] MEDS: Insulin Glargine,Human Rec. Analog 100 Units/ML 3 ML Pen SUBCUT SCH (20:35)
[2020-11-07] MEDS: diphenhydrAMINE 50 MG Cap PO PRN (23:12)
[2020-11-07] MEDS: Melatonin 3 MG Tab PO PRN (23:13)
[2020-11-08] MEDS: Acetaminophen 500 MG Tab PO SCH ×4 (01:33→18:47)
[2020-11-08] MEDS: Piperacillin/Tazobactam 3.375 GM in Sodium Chloride 0.9% 100 ML IV SCH ×3 (06:12→21:49)
[2020-11-08] MEDS: Pantoprazole 40 MG Tab.CR PO SCH (06:16)
[2020-11-08] MEDS: Sodium Chloride 0.9% 10 ML Syringe FLUSH PRN ×2 (06:17→21:50)
[2020-11-08] MEDS: Metoprolol Succinate 50 MG Tab.ER PO SCH (08:03)
[2020-11-08] MEDS: Cholecalciferol (Vitamin D3) 2,000 Unit Cap PO SCH (08:04)
[2020-11-08] MEDS: Losartan 25 MG Tab PO SCH (08:04)
[2020-11-08] MEDS: Aspirin 325 MG Tab.EC PO SCH (08:04)
[2020-11-08] MEDS: Gabapentin 100 MG Cap PO SCH ×3 (08:04→21:07)
[2020-11-08] MEDS: Lactobacillus Acidophilus/Lactobacillus Sporogenes (Probiotic) Tab PO SCH (08:04)
[2020-11-08] MEDS: Bumetanide 1 MG Tab PO SCH ×2 (08:04→15:20)
[2020-11-08] MEDS: Ferrous Sulfate 325 MG Tab PO SCH ×3 (08:04→21:06)
[2020-11-08] MEDS: Magnesium Oxide 400 MG Tab PO SCH ×2 (08:05→21:07)
[2020-11-08] MEDS: Potassium Chloride 20 MEQ Tab.ER PO SCH ×3 (08:05→18:47)
[2020-11-08] MEDS: Amiodarone 200 MG Tab PO SCH (08:05)
[2020-11-08] MEDS: Insulin Aspart 100 Units/ML 3 ML Pen SUBCUT SCH ×3 (08:10→19:00)
[2020-11-08] MEDS: Nystatin Crm 30 GM Tube TOP SCH ×2 (08:10→21:05)
[2020-11-08] MEDS ORDERED: Warfarin 5 MG Tab PO ONE ×2 (16:53→20:00)
[2020-11-08] MEDS ORDERED: Piperacillin/Tazobactam 3.375 GM in Sodium Chloride 0.9% 100 ML IV SCH (18:43)
[2020-11-08] MEDS: Insulin Glargine,Human Rec. Analog 100 Units/ML 3 ML Pen SUBCUT SCH (21:04)
[2020-11-08] MEDS: Melatonin 3 MG Tab PO PRN (21:06)
[2020-11-08] MEDS: diphenhydrAMINE 50 MG Cap PO PRN (21:06)
[2020-11-08] MEDS: Mirtazapine 15 MG Tab PO SCH (21:07)
[2020-11-08] MEDS: Venlafaxine 150 MG Cap.ER PO SCH (21:08)
[2020-11-08] MEDS: Cyclobenzaprine 10 MG Tab PO SCH (21:08)
[2020-11-08] MEDS: atorvaSTATin 20 MG Tab PO SCH (21:08)
[2020-11-08] MEDS: Acetaminophen/HYDROcodone 325-5 MG Tab PO PRN (23:47)
[2020-11-09] MEDS: Sodium Chloride 0.9% 10 ML Syringe FLUSH PRN ×2 (02:10→05:38)
[2020-11-09] MEDS: Acetaminophen 500 MG Tab PO SCH ×4 (03:16→18:11)
[2020-11-09] MEDS: traMADol 50 MG Tab PO PRN ×2 (05:29→13:30)
[2020-11-09] MEDS: Piperacillin/Tazobactam 3.375 GM in Sodium Chloride 0.9% 100 ML IV SCH (05:30)
[2020-11-09] MEDS: Pantoprazole 40 MG Tab.CR PO SCH (06:05)
[2020-11-09] MEDS: Insulin Aspart 100 Units/ML 3 ML Pen SUBCUT SCH ×3 (07:30→17:00)
[2020-11-09] MEDS ORDERED: Fluconazole 150 MG Tab PO ONE (08:00)
[2020-11-09] MEDS: Ferrous Sulfate 325 MG Tab PO SCH ×3 (08:43→20:36)
[2020-11-09] MEDS: Bumetanide 1 MG Tab PO SCH ×2 (08:43→14:27)
[2020-11-09] MEDS: Lactobacillus Acidophilus/Lactobacillus Sporogenes (Probiotic) Tab PO SCH (08:43)
[2020-11-09] MEDS: Potassium Chloride 20 MEQ Tab.ER PO SCH ×3 (08:43→18:11)
[2020-11-09] MEDS: Cholecalciferol (Vitamin D3) 2,000 Unit Cap PO SCH (08:43)
[2020-11-09] MEDS: Metoprolol Succinate 50 MG Tab.ER PO SCH (08:43)
[2020-11-09] MEDS: Gabapentin 100 MG Cap PO SCH ×3 (08:43→20:36)
[2020-11-09] MEDS: Amiodarone 200 MG Tab PO SCH (08:44)
[2020-11-09] MEDS: Aspirin 325 MG Tab.EC PO SCH (08:44)
[2020-11-09] MEDS: Losartan 25 MG Tab PO SCH (08:44)
[2020-11-09] MEDS: Magnesium Oxide 400 MG Tab PO SCH ×2 (08:44→20:36)
[2020-11-09] MEDS: Nystatin Crm 30 GM Tube TOP SCH ×2 (08:47→20:38)
[2020-11-09] MEDS ORDERED: Warfarin 5 MG Tab PO ONE (20:00)
[2020-11-09] MEDS ORDERED: Pramipexole 0.125 MG Tab PO SCH (20:00)
[2020-11-09] MEDS ORDERED: PRAMIPEXOLE DI HCL 1.5 MG PO SCH (20:00)
[2020-11-09] MEDS: Cyclobenzaprine 10 MG Tab PO SCH (20:36)
[2020-11-09] MEDS: Venlafaxine 150 MG Cap.ER PO SCH (20:36)
[2020-11-09] MEDS: Mirtazapine 15 MG Tab PO SCH (20:37)
[2020-11-09] MEDS: Insulin Glargine,Human Rec. Analog 100 Units/ML 3 ML Pen SUBCUT SCH (21:02)
[2020-11-09] MEDS: Melatonin 3 MG Tab PO PRN (21:36)
[2020-11-10] MEDS: Acetaminophen/HYDROcodone 325-5 MG Tab PO PRN (04:19)
[2020-11-10] MEDS: Acetaminophen 500 MG Tab PO SCH ×2 (04:19→06:15)
[2020-11-10] MEDS: Pantoprazole 40 MG Tab.CR PO SCH (06:14)
[2020-11-10] MEDS: Aspirin 325 MG Tab.EC PO SCH (08:49)
[2020-11-10] MEDS: Amiodarone 200 MG Tab PO SCH (08:49)
[2020-11-10] MEDS: Metoprolol Succinate 50 MG Tab.ER PO SCH (08:49)
[2020-11-10] MEDS: Gabapentin 100 MG Cap PO SCH (08:49)
[2020-11-10] MEDS: Magnesium Oxide 400 MG Tab PO SCH (08:50)
[2020-11-10] MEDS: Ferrous Sulfate 325 MG Tab PO SCH (08:50)
[2020-11-10] MEDS: Potassium Chloride 20 MEQ Tab.ER PO SCH (08:50)
[2020-11-10] MEDS: Bumetanide 1 MG Tab PO SCH (08:50)
[2020-11-10] MEDS: Losartan 25 MG Tab PO SCH (08:50)
[2020-11-10] MEDS: Lactobacillus Acidophilus/Lactobacillus Sporogenes (Probiotic) Tab PO SCH (08:51)
[2020-11-10 08:52] VITALS: BP 152/71; PULSE 83
[2020-11-10] MEDS: Nystatin Crm 30 GM Tube TOP SCH (08:53)
[2020-11-10] MEDS: Insulin Aspart 100 Units/ML 3 ML Pen SUBCUT SCH (08:54)
[2020-11-10] MEDS: Cholecalciferol (Vitamin D3) 2,000 Unit Cap PO SCH (08:55)
== END 2020-11-10 11:00 | disposition home or self-care (01) | DRG 139 ==
LOC: UNDOADMIN 16:56 → LB.MS 16:56
PROVIDERS: ADMIT Surgery; ATTEND Surgery
DX: J15.9 Unspecified bacterial pneumonia (principal); I33.0 Acute and subacute infective endocarditis; I50.9 Heart failure, unspecified; J30.9 Allergic rhinitis, unspecified; I11.0 Hypertensive heart disease with heart failure; G47.30 Sleep apnea, unspecified; E66.9 Obesity, unspecified; D64.9 Anemia, unspecified; M85.80 Other specified disorders of bone density and structure, unspecified site; M19.90 Unspecified osteoarthritis, unspecified site; M54.9 Dorsalgia, unspecified; G89.29 Other chronic pain; K21.9 Gastro-esophageal reflux disease without esophagitis; Z86.16 Personal history of COVID-19; Z88.8 Allergy status to other drugs, medicaments and biological substances; Z79.82 Long term (current) use of aspirin; Z79.4 Long term (current) use of insulin; Z79.01 Long term (current) use of anticoagulants; Z95.2 Presence of prosthetic heart valve; I25.2 Old myocardial infarction; Z87.442 Personal history of urinary calculi; Z90.710 Acquired absence of both cervix and uterus; Z68.41 Body mass index [BMI] 40.0-44.9, adult
CPT/HCPCS: 36415; 82550; 82962; 85610; 85651; A9270-GY; J0878; J1642; J1815; J1815-GY; J2543; J7620-GY

== ENCOUNTER 2020-11-18 10:28 | Emergency (ER) | payer BC, MEDICARE ==
[2020-11-18] MEDS ORDERED: Nitroglycerin 0.4 MG Tab.SL SL ONE (10:58)
[2020-11-18] MEDS ORDERED: Aspirin 81 MG Tab.Chew PO ONE (11:46)
[2020-11-18] MEDS ORDERED: GI Cocktail Oral Solution 30 ML PO ONE (12:11)
[2020-11-18 12:22] VITALS: BP 147/70; PULSE 89
--- NOTE | 2020-11-18 17:51 | EDM.PDOC ---
ED HPI GENERAL MEDICAL PROBLEM - General Chief Complaint: Chest Pain Stated Complaint: PAIN Time Seen by Provider: 11/18/20 11:00 Source of Information: Reports: Patient History Limitations: Reports: No Limitations - History of Present Illness INITIAL COMMENTS - FREE TEXT/NARRATIVE: Patient presented to ER at 10:40 with c/o chest pain. States started during antibiotic outpatient treatment. (Daptomycin).The pain was located retrosternal,located in center of of front of chest .The pain is sharp .8/10 - Non radiating worse with movement .Nothing makes pain better . The patient is also c/o pain in left upper quadrant -this pain is dull ache .5/10 -non radiating . The patient is morbidly obese with s/p cardiac valve replacement . denies fever ,nausea ,vomiting ,chest pain ,shortness of breath ,wheezing abd pain Onset: Today, Sudden Duration: Hour(s): (6) Location: Reports: Chest Quality: Reports: Sharp Severity: Moderate Improves with: Reports: None Worsens with: Reports: None Treatments SPED TEACHER: Reports: Aspirin, EKG - Related Data Allergies Allergy/AdvReac Type Severity Reaction Status Date / Time lisinopril AdvReac Cough Verified 06/24/20 20:03 Home Meds: Home Meds Cyclobenzaprine HCl 10 mg PO QPM 01/24/15 [History] Losartan Potassium 12.5 mg PO DAILY 07/26/17 [History] Mirtazapine 30 mg PO BEDTIME 07/26/17 [History] Nitroglycerin 0.4 mg SL ASDIRECTED PRN 07/26/17 [History] Metoprolol Succinate [Toprol Xl] 50 mg PO DAILY 06/24/20 [History] Venlafaxine HCl [Venlafaxine ER] 300 mg PO BEDTIME 06/24/20 [History] traMADol HCl [Tramadol HCl] 1 tab PO Q6HR PRN MDD 400 06/24/20 [History] Amiodarone HCl [Pacerone] 1 tab PO DAILY 10/19/20 [History] Aspirin [Aspirin EC] 325 mg PO DAILY 10/19/20 [History] Bumetanide [Bumex] 2 mg PO BID 10/19/20 [History] Ferrous Sulfate 325 mg PO TID 10/19/20 [History] Gabapentin [Neurontin] 100 mg PO TID 10/19/20 [History] Pantoprazole Sodium [Protonix] 40 mg PO ACBREAKFAST 10/19/20 [History] atorvaSTATin [Lipitor] 20 mg PO BEDTIME 10/19/20 [History] Cholecalciferol (Vitamin D3) [Vitamin D3] 2 cap PO DAILY 11/02/20 [History] Magnesium Oxide 400 mg PO BID 11/02/20 [History] Nystatin [Nystatin Crm] 1 applic TOP BID 11/02/20 [History] Potassium Chloride 20 meq PO TID 11/02/20 [History] Pramipexole Di-HCl [Mirapex] 1.5 mg PO BEDTIME 11/02/20 [History] Sennosides/Docusate Sodium [Senna-Docusate Sodium Tablet] 2 tab PO BID PRN 11/02/20 [History] Warfarin [Coumadin] 1 tab PO DAILY 11/02/20 [History] Insulin Aspart [NovoLOG] 0 unit SUBCUT TID@0800,1200,1700 pen 11/09/20 [Rx] Insulin Aspart [NovoLOG] See Protocol SQ TIDAC 11/09/20 [History] Insulin Glarg,Human.Rec.Analog [Lantus Solostar] 14 units SQ BEDTIME 11/09/20 [History] Insulin Glarg,Human.Rec.Analog [Lantus Solostar] 14 units SUBCUT BEDTIME pen 11/09/20 [Rx] Losartan [Cozaar] 12.5 mg PO DAILY tablet 11/09/20 [Rx] Melatonin 6 mg PO BEDTIME PRN tablet 11/09/20 [Rx] Past Medical History HEENT History: Reports: Allergic Rhinitis Cardiovascular History: Reports: Heart Valve Replacement, Hypertension, [place] Respiratory History: Reports: Sleep Apnea Gastrointestinal History: Reports: GERD Genitourinary History: Reports: Other (See Below) Other Genitourinary History: urgency, kidney stones LAMINATOR History: Reports: Musculoskeletal History: Reports: Arthritis, Back Pain, Chronic, Fibromyalgia Neurological History: Reports: Migraines, Other (See Below) Other Neuro History: restless leg syndrome Psychiatric History: Reports: Depression Endocrine/Metabolic History: Reports: Diabetes, Type II, Obesity/BMI 30+, Osteopenia Hematologic History: Reports: Anemia, Blood Transfusion(s) Oncologic (Cancer) History: Reports: None - Infectious Disease History Infectious Disease History: Reports: Chicken Pox, Novel Coronavirus - Past Surgical History HEENT Surgical History: Reports: None Cardiovascular Surgical History: Reports: None Respiratory Surgical History: Reports: None GI Surgical History: Reports: None Other GI Surgeries/Procedures: umbilical hernia repair Female Surgical History: Reports: D&C, Hysterectomy, Lithotripsy/ESWL Endocrine Surgical History: Reports: None Neurological Surgical History: Reports: None, Other (See Below) Other Neurological Surgeries/Procedures: injections - Musculoskeletal Surgical History: Reports: Carpal Tunnel Social & Family History - Family History Family Medical History: No Pertinent Family History - Tobacco Use Tobacco Use Status *Q: Never Tobacco User - Caffeine Use Caffeine Use: Reports: Soda - Recreational Drug Use Recreational Drug Use: No ED ROS GENERAL - Review of Systems Review Of Systems: See Below Constitutional: Reports: No Symptoms HEENT: Reports: No Symptoms Respiratory: Reports: Shortness of Breath, Wheezing, Cough, Sputum, Hemoptysis, Other Cardiovascular: Reports: No Symptoms, Chest Pain, Dyspnea on Exertion, Edema Endocrine: Reports: No Symptoms, High Glucose Musculoskeletal: Reports: No Symptoms Neurological: Reports: No Symptoms ED EXAM, GENERAL - Physical Exam Exam: See Below Exam Limited By: No Limitations General Appearance: Alert, WD/WN, No Apparent Distress Neck: Normal Inspection Respiratory/Chest: No Respiratory Distress, Lungs Clear, Normal Breath Sounds, No Accessory Muscle Use, Chest Non-Tender Cardiovascular: Normal Peripheral Pulses, Regular Rate, Rhythm, No Edema, No Gallop, No JVD, No Murmur, No Rub GI/Abdominal: Normal Bowel Sounds, Soft, Non-Tender, No Organomegaly, No Distention, No Abnormal Bruit Neurological: Alert, Oriented, CN II-XII Intact, Normal Cognition, Normal Gait Course - Vital Signs Text/Narrative:: Vitals monitored labs ordered aspirin 325 mg given orally 1 nitro given- pain subsided EKG done & consulted with [place] [facility] doctor EKG also faxed to [place] personal banking advisor dr ohara for opinion labs shows high BNP -she is already on diuretic. High d-dimer -previous lung scan were normal -we decided for chest x ray waiting for radiologist interpretation. discuss with patient to follow up with primary care For left quadrant pain,GI cocktail was given given -the pain subsided. International Operations Manager called back & EKG does not show any stemi & also troponin was not elevated Disposition -patient was discharge home Last Recorded V/S: Last Vital Signs Temp Pulse 89 11/18/20 12:19 Resp 20 11/18/20 12:19 BP 147/70 H 11/18/20 12:19 Pulse Ox 96 11/18/20 12:19 - Orders/Labs/Meds Orders: Active Orders 24 hr Category Date Time Status Chest 1V Frontal [CR] Stat Exams 11/18/20 12:50 Taken Labs: Laboratory Tests 11/18/20 11/18/20 11/18/20 Range/Units 11:10 11:10 11:10 WBC 9.4 D (4.0-11.0) K/uL RBC 4.50 (3.80-5.80) M/uL Hgb 11.1 L (11.5-16.5) g/dL Hct 36.7 L (37.0-47.0) % MCV 82 (76-96) fL MCH 24.7 L (27.0-32.0) pg MCHC 30.2 L (31.0-35.0) g/dL RDW 18.4 H (11.0-16.0) % Plt Count 281 (150-500) K/uL MPV 9.6 (6.0-10.0) fL Neut % (Auto) 72.0 H (45.0-70.0) % Lymph % (Auto) 16.9 L (20.0-40.0) % Page % (Auto) 8.7 (3.0-10.0) % Eos % (Auto) 2.2 (1.0-5.0) % Baso % (Auto) 0.2 (0.0-0.5) % Neut # (Auto) 6.78 (2.00-7.50) K/uL Lymph # (Auto) 1.59 (1.50-4.00) K/uL Page # (Auto) 0.82 H (0.20-0.80) K/uL Eos # (Auto) 0.21 (0.04-0.40) K/uL Baso # (Auto) 0.02 (0.02-0.10) K/uL PT 20.0 H (9.0-11.5) sec INR 2.0 (1.0-3.5) D-Dimer, Quantitative (0-400) ng/mL Sodium 139 (136-145) mmol/L Potassium 4.2 (3.5-5.1) mmol/L Chloride 103 (98-107) mmol/L Carbon Dioxide 31.0 (21.0-32.0) mmol/L Anion Gap 9.2 (5.0-15.0) mmol/L BUN 11 (8-26) mg/dL Creatinine 0.95 (0.55-1.02) mg/dL Est Cr Clr Drug Dosing TNP Estimated GFR (MDRD) > 60 (>60) MLS/MIN BUN/Creatinine Ratio 11.6 (6-25) Glucose 169 H (74-100) mg/dL Calcium 9.0 (8.5-10.1) mg/dL Total Bilirubin 0.6 (0.0-1.0) mg/dL AST 18 (15-37) U/L ALT 24 (12-78) U/L Alkaline Phosphatase 138 H (46-116) U/L Troponin I < 0.017 D (0.000-0.060) ng/mL B-Natriuretic Peptide (0-125) pg/mL Total Protein 6.3 L (6.4-8.2) g/dL Albumin 3.1 L (3.4-5.0) g/dL Globulin 3.2 (2.2-4.2) g/dL Albumin/Globulin Ratio 1.0 (0.8-2.0) Urine Color Urine Appearance (CLEAR) Urine pH (5.0-8.0) Ur Specific [place] (1.003-1.030) Urine Protein (NEGATIVE) mg/dL Urine Glucose (UA) (NEGATIVE) mg/dL Urine Ketones (NEGATIVE) mg/dL Urine Occult Blood (NEGATIVE) Urine Nitrite (NEGATIVE) Urine Bilirubin (NEGATIVE) Urine Urobilinogen (0.2-1.0) E.U./dL Ur Leukocyte Esterase (NEGATIVE) Urine RBC /HPF Urine WBC /HPF Ur Squamous Epith Cells /HPF Urine Bacteria /HPF 11/18/20 11/18/20 11/18/20 Range/Units 11:10 11:10 12:35 WBC (4.0-11.0) K/uL RBC (3.80-5.80) M/uL Hgb (11.5-16.5) g/dL Hct (37.0-47.0) % MCV (76-96) fL MCH (27.0-32.0) pg MCHC (31.0-35.0) g/dL RDW (11.0-16.0) % Plt Count (150-500) K/uL MPV (6.0-10.0) fL Neut % (Auto) (45.0-70.0) % Lymph % (Auto) (20.0-40.0) % Page % (Auto) (3.0-10.0) % Eos % (Auto) (1.0-5.0) % Baso % (Auto) (0.0-0.5) % Neut # (Auto) (2.00-7.50) K/uL Lymph # (Auto) (1.50-4.00) K/uL Page # (Auto) (0.20-0.80) K/uL Eos # (Auto) (0.04-0.40) K/uL Baso # (Auto) (0.02-0.10) K/uL PT (9.0-11.5) sec INR (1.0-3.5) D-Dimer, Quantitative 1540 H (0-400) ng/mL Sodium (136-145) mmol/L Potassium (3.5-5.1) mmol/L Chloride (98-107) mmol/L Carbon Dioxide (21.0-32.0) mmol/L Anion Gap (5.0-15.0) mmol/L BUN (8-26) mg/dL Creatinine (0.55-1.02) mg/dL Est Cr Clr Drug Dosing Estimated GFR (MDRD) (>60) MLS/MIN BUN/Creatinine Ratio (6-25) Glucose (74-100) mg/dL Calcium (8.5-10.1) mg/dL Total Bilirubin (0.0-1.0) mg/dL AST (15-37) U/L ALT (12-78) U/L Alkaline Phosphatase (46-116) U/L Troponin I (0.000-0.060) ng/mL B-Natriuretic Peptide 644 H D (0-125) pg/mL Total Protein (6.4-8.2) g/dL Albumin (3.4-5.0) g/dL Globulin (2.2-4.2) g/dL Albumin/Globulin Ratio (0.8-2.0) Urine Color Yellow Urine Appearance Slightly cloudy (CLEAR) Urine pH 7.0 (5.0-8.0) Ur Specific [place] 1.025 (1.003-1.030) Urine Protein Trace H (NEGATIVE) mg/dL Urine Glucose (UA) Negative (NEGATIVE) mg/dL Urine Ketones Negative (NEGATIVE) mg/dL Urine Occult Blood Negative (NEGATIVE) Urine Nitrite Negative (NEGATIVE) Urine Bilirubin Negative (NEGATIVE) Urine Urobilinogen 0.2 (0.2-1.0) E.U./dL Ur Leukocyte Esterase Small H (NEGATIVE) Urine RBC Not seen /HPF Urine WBC 0-5 H /HPF Ur Squamous Epith Cells Many /HPF Urine Bacteria Few /HPF Meds: Medications Discontinued Medications Generic Name Dose Route Start Last Admin Trade Name Freq PRN Reason Stop Dose Admin Al Hydroxide/Mg Hydroxide 30 ml 11/18/20 12:11 11/18/20 12:10 Gi Cocktail PO 11/18/20 12:12 30 ml ONETIME ONE Administration Aspirin 324 mg 11/18/20 11:46 11/18/20 11:10 Aspirin PO 11/18/20 11:47 324 mg ONETIME ONE Administration Nitroglycerin 0.4 mg 11/18/20 10:58 11/18/20 10:50 Nitrostat SL 11/18/20 10:59 0.4 mg ONETIME ONE Administration Departure - Departure Time of Disposition: 14:00 Disposition: Home, Self-Care 01 Condition: Fair Clinical Impression: Gastroesophageal reflux disease Qualifiers: Esophagitis presence: without esophagitis Qualified Code(s): K21.9 - Gastro- esophageal reflux disease without esophagitis Chest pain Qualifiers: Chest pain type: unspecified Qualified Code(s): R07.9 - Chest pain, unspecified Care Plan Goals: Follow up with health care provider as directed. Continue with scheduled appointments Sepsis Event Note (ED) - Evaluation Sepsis Screening Result: No Definite Risk - Focused Exam Vital Signs: Vital Signs Pulse Resp BP BP Pulse Ox 11/18/20 12:19 89 20 147/70 H 96 11/18/20 10:50 159/90 H - My Orders Last 24 Hours: My Active Orders 11/18/20 12:50 Chest 1V Frontal [CR] Stat - Assessment/Plan Last 24 Hours: My Active Orders 11/18/20 12:50 Chest 1V Frontal [CR] Stat
--- NOTE | 2020-11-20 07:09 | CR ---
Date of Service: 11/18/20 Clinical Data: chest pain, d dimer AP CHEST: The patient has taken a very poor inspiration and is in an apical lordotic position. There is a left subclavian Port-A-Cath in place with its distal tip in the region of the right atrium. The patient is status post median sternotomy. The heart is enlarged. The lungs appear clear. No pneumothorax. No pleural effusions. [id number] MTDD
== END 2020-11-18 13:40 | disposition home or self-care (01) ==
LOC: LB.ED 10:28
DX: K21.9 Gastro-esophageal reflux disease without esophagitis (principal); I10 Essential (primary) hypertension; I25.2 Old myocardial infarction; M19.90 Unspecified osteoarthritis, unspecified site; G25.81 Restless legs syndrome; E11.9 Type 2 diabetes mellitus without complications; E66.9 Obesity, unspecified; Z79.82 Long term (current) use of aspirin; Z79.4 Long term (current) use of insulin; Z88.8 Allergy status to other drugs, medicaments and biological substances; Z79.01 Long term (current) use of anticoagulants; Z79.899 Other long term (current) drug therapy
CPT/HCPCS: 36415; 71045; 80053; 81001; 83880; 84484; 85025; 85379; 85610; 93005; 99285; A9270; 99284

== ENCOUNTER 2020-11-19 15:16 | Emergency (ER) | payer BC, MEDICARE ==
--- NOTE | 2020-11-19 18:22 | EDM.PDOC ---
ED HPI GENERAL MEDICAL PROBLEM - General Chief Complaint: Respiratory Problem Stated Complaint: Short of Breath Time Seen by Provider: 11/19/20 15:20 Source of Information: Reports: Patient History Limitations: Reports: No Limitations - History of Present Illness INITIAL COMMENTS - FREE TEXT/NARRATIVE: 59 year old female known patient heart disease ,CHF & morbidly obese ,s/p aortic valve replacement ( on daptomycin injection ) came to Ed due to shortness of breath ,cough with sputum.She also reports chest pain -But EKG was done yesterday & discussed with family and consumer education teacher .She came yesterday with same problem - treated with aspirin,1 nitro, & Gi cocktail .she was also given 2mg of Dilaudid. she was doing fine till today.Her d-dimer was done yesterday. Today she called back that she had fever ,& she feeling shortness of breath & when she was travelling to ED she had chest pain . ROS positive for shortness breath ,cough & chest pain & fever. denies any nausea ,vomiting ,abd pain ,urinary complains Onset: Today, Sudden Duration: Day(s): (2) Severity: Severe Improves with: Reports: None Worsens with: Reports: None Context: Reports: Activity - Related Data Allergies Allergy/AdvReac Type Severity Reaction Status Date / Time lisinopril AdvReac Cough Verified 06/24/20 20:03 Home Meds: Home Meds Cyclobenzaprine HCl 10 mg PO QPM 01/24/15 [History] Mirtazapine 30 mg PO BEDTIME 07/26/17 [History] Nitroglycerin 0.4 mg SL ASDIRECTED PRN 07/26/17 [History] Metoprolol Succinate [Toprol Xl] 50 mg PO DAILY 06/24/20 [History] Venlafaxine HCl [Venlafaxine ER] 300 mg PO BEDTIME 06/24/20 [History] traMADol HCl [Tramadol HCl] 1 tab PO Q6HR PRN MDD 400 06/24/20 [History] Amiodarone HCl [Pacerone] 1 tab PO DAILY 10/19/20 [History] Aspirin [Aspirin EC] 325 mg PO DAILY 10/19/20 [History] Bumetanide [Bumex] 2 mg PO BID 10/19/20 [History] Ferrous Sulfate 325 mg PO TID 10/19/20 [History] Gabapentin [Neurontin] 100 mg PO TID 10/19/20 [History] Pantoprazole Sodium [Protonix] 40 mg PO ACBREAKFAST 10/19/20 [History] atorvaSTATin [Lipitor] 20 mg PO BEDTIME 10/19/20 [History] Cholecalciferol (Vitamin D3) [Vitamin D3] 2 cap PO DAILY 11/02/20 [History] Magnesium Oxide 400 mg PO BID 11/02/20 [History] Nystatin [Nystatin Crm] 1 applic TOP BID 11/02/20 [History] Potassium Chloride 20 meq PO TID 11/02/20 [History] Pramipexole Di-HCl [Mirapex] 1.5 mg PO BEDTIME 11/02/20 [History] Warfarin [Coumadin] 1 tab PO DAILY 11/02/20 [History] Insulin Aspart [NovoLOG] See Protocol SQ TIDAC 11/09/20 [History] Insulin Glarg,Human.Rec.Analog [Lantus Solostar] 14 units SUBCUT BEDTIME pen 11/09/20 [Rx] Losartan [Cozaar] 12.5 mg PO DAILY tablet 11/09/20 [Rx] Melatonin 6 mg PO BEDTIME PRN tablet 11/09/20 [Rx] Past Medical History HEENT History: Reports: Allergic Rhinitis Cardiovascular History: Reports: Heart Valve Replacement, Hypertension, HI Respiratory History: Reports: Sleep Apnea Gastrointestinal History: Reports: GERD Genitourinary History: Reports: Other (See Below) Other Genitourinary History: urgency, kidney stones MANAGER SOCIAL SERVICES History: Reports: Musculoskeletal History: Reports: Arthritis, Back Pain, Chronic, Fibromyalgia Neurological History: Reports: Migraines, Other (See Below) Other Neuro History: restless leg syndrome Psychiatric History: Reports: Depression Endocrine/Metabolic History: Reports: Diabetes, Type II, Obesity/BMI 30+, Osteopenia Hematologic History: Reports: Anemia, Blood Transfusion(s) Oncologic (Cancer) History: Reports: None - Infectious Disease History Infectious Disease History: Reports: Chicken Pox, Novel Coronavirus - Past Surgical History HEENT Surgical History: Reports: None Cardiovascular Surgical History: Reports: None Respiratory Surgical History: Reports: None GI Surgical History: Reports: None Other GI Surgeries/Procedures: umbilical hernia repair Female Surgical History: Reports: D&C, Hysterectomy, Lithotripsy/ESWL Endocrine Surgical History: Reports: None Neurological Surgical History: Reports: None, Other (See Below) Other Neurological Surgeries/Procedures: injections - Musculoskeletal Surgical History: Reports: Carpal Tunnel Social & Family History - Family History Family Medical History: No Pertinent Family History - Caffeine Use Caffeine Use: Reports: Soda ED ROS GENERAL - Review of Systems Review Of Systems: See Below Constitutional: Reports: Fever, Fatigue HEENT: Reports: No Symptoms Respiratory: Reports: Shortness of Breath, Cough, Sputum Cardiovascular: Reports: Chest Pain, Dyspnea on Exertion GI/Abdominal: Reports: No Symptoms, Abdominal Pain, Anorexia, Constipation, Diarrhea Musculoskeletal: Reports: No Symptoms Skin: Reports: No Symptoms Neurological: Reports: No Symptoms ED EXAM, GENERAL - Physical Exam Exam: See Below Exam Limited By: No Limitations General Appearance: Alert, WD/WN, Anxious, Moderate Distress, Severe Distress Head: Atraumatic, Normocephalic Respiratory/Chest: No Respiratory Distress, Lungs Clear, Normal Breath Sounds, No Accessory Muscle Use, Chest Non-Tender Neurological: Alert, Oriented, CN II-XII Intact, Normal Gait Course - Vital Signs Text/Narrative:: 59 year old female came to Ed due t shortness of breath & fever. She came to ED yesterday & sent home as she was feeling better. Today she reports again with shortness of breath - Clinically, the patient looks in respiratory distress & she had fever. Her d-dimer had increasing trend . Labs ordered EKG done & The patient had some underlying infective focus not responding to daptomycin Looking at patient's condition ,I made the decision to transfer her higher level of care ; I spoke with dr mendoza at [facility] ,he was ready accept the patient - Ambulance arranged - Patient was transferred to [facility] under care dr Mendoza with cardiology & ID consult Last Recorded V/S: Last Vital Signs Temp 102 F H 11/19/20 18:50 Pulse 120 H 11/19/20 18:50 Resp 22 H 11/19/20 18:50 BP 106/67 11/19/20 18:50 Pulse Ox 94 L 11/19/20 18:50 - Orders/Labs/Meds Orders: Active Orders 24 hr Category Date Time Status EKG Documentation Completion [RC] ASDIRECTED Care 11/19/20 16:59 Active Heparin Sodium [Heparin Lock Flush 100 Units/ML] Med 11/19/20 21:11 Active 500 units FLUSH ASDIRECTED PRN Sodium Chloride 0.9% [Saline Flush] Med 11/19/20 21:13 Active 10 ml FLUSH ASDIRECTED PRN Medication Orders Heparin Sodium (Porcine) (Heparin Lock Flush 100 Units/Ml) 500 units FLUSH ASDIRECTED PRN PRN Reason: Other Last Admin: 11/19/20 16:30 Dose: 500 units Documented by: DAYNE Sodium Chloride (Saline Flush) 10 ml FLUSH ASDIRECTED PRN PRN Reason: Other Last Admin: 11/19/20 16:30 Dose: 10 ml Documented by: FLETCHERIPAErik Labs: Laboratory Tests 11/19/20 11/19/20 11/19/20 Range/Units 16:58 16:58 17:00 WBC 11.3 H D (4.0-11.0) K/uL RBC 4.59 (3.80-5.80) M/uL Hgb 11.4 L (11.5-16.5) g/dL Hct 36.8 L (37.0-47.0) % MCV 80 (76-96) fL MCH 24.8 L (27.0-32.0) pg MCHC 31.0 (31.0-35.0) g/dL RDW 18.2 H (11.0-16.0) % Plt Count 261 (150-500) K/uL MPV 10.2 H (6.0-10.0) fL Neut % (Auto) 71.8 H (45.0-70.0) % Lymph % (Auto) 15.7 L (20.0-40.0) % [place] % (Auto) 11.5 H (3.0-10.0) % Eos % (Auto) 0.8 L (1.0-5.0) % Baso % (Auto) 0.2 (0.0-0.5) % Neut # (Auto) 8.14 H (2.00-7.50) K/uL Lymph # (Auto) 1.78 (1.50-4.00) K/uL [place] # (Auto) 1.30 H (0.20-0.80) K/uL Eos # (Auto) 0.09 (0.04-0.40) K/uL Baso # (Auto) 0.02 (0.02-0.10) K/uL PT (9.0-11.5) sec INR (1.0-3.5) D-Dimer, Quantitative (0-400) ng/mL Sodium 135 L (136-145) mmol/L Potassium 3.9 (3.5-5.1) mmol/L Chloride 100 (98-107) mmol/L Carbon Dioxide 27.7 (21.0-32.0) mmol/L Anion Gap 11.2 (5.0-15.0) mmol/L BUN 12 (8-26) mg/dL Creatinine 0.94 (0.55-1.02) mg/dL Est Cr Clr Drug Dosing TNP Estimated GFR (MDRD) > 60 (>60) MLS/MIN BUN/Creatinine Ratio 12.8 (6-25) Glucose 181 H (74-100) mg/dL Lactic Acid 0.7 (0.4-2.0) mmol/L Calcium 9.1 (8.5-10.1) mg/dL Total Bilirubin 0.8 D (0.0-1.0) mg/dL AST 16 (15-37) U/L ALT 22 (12-78) U/L Alkaline Phosphatase 143 H (46-116) U/L Troponin I < 0.017 (0.000-0.060) ng/mL Total Protein 6.3 L (6.4-8.2) g/dL Albumin 2.9 L (3.4-5.0) g/dL Globulin 3.4 (2.2-4.2) g/dL Albumin/Globulin Ratio 0.9 (0.8-2.0) 11/19/20 11/19/20 Range/Units 17:00 17:01 WBC (4.0-11.0) K/uL RBC (3.80-5.80) M/uL Hgb (11.5-16.5) g/dL Hct (37.0-47.0) % MCV (76-96) fL MCH (27.0-32.0) pg MCHC (31.0-35.0) g/dL RDW (11.0-16.0) % Plt Count (150-500) K/uL MPV (6.0-10.0) fL Neut % (Auto) (45.0-70.0) % Lymph % (Auto) (20.0-40.0) % [place] % (Auto) (3.0-10.0) % Eos % (Auto) (1.0-5.0) % Baso % (Auto) (0.0-0.5) % Neut # (Auto) (2.00-7.50) K/uL Lymph # (Auto) (1.50-4.00) K/uL [place] # (Auto) (0.20-0.80) K/uL Eos # (Auto) (0.04-0.40) K/uL Baso # (Auto) (0.02-0.10) K/uL PT 28.4 H D (9.0-11.5) sec INR 2.8 D (1.0-3.5) D-Dimer, Quantitative 1910 H (0-400) ng/mL Sodium (136-145) mmol/L Potassium (3.5-5.1) mmol/L Chloride (98-107) mmol/L Carbon Dioxide (21.0-32.0) mmol/L Anion Gap (5.0-15.0) mmol/L BUN (8-26) mg/dL Creatinine (0.55-1.02) mg/dL Est Cr Clr Drug Dosing Estimated GFR (MDRD) (>60) MLS/MIN BUN/Creatinine Ratio (6-25) Glucose (74-100) mg/dL Lactic Acid (0.4-2.0) mmol/L Calcium (8.5-10.1) mg/dL Total Bilirubin (0.0-1.0) mg/dL AST (15-37) U/L ALT (12-78) U/L Alkaline Phosphatase (46-116) U/L Troponin I (0.000-0.060) ng/mL Total Protein (6.4-8.2) g/dL Albumin (3.4-5.0) g/dL Globulin (2.2-4.2) g/dL Albumin/Globulin Ratio (0.8-2.0) Meds: Medications Generic Name Dose Route Start Last Admin Trade Name Freq PRN Reason Stop Dose Admin Heparin Sodium (Porcine) 500 units 11/19/20 21:11 11/19/20 16:30 Heparin Lock Flush 100 Units/Ml FLUSH 500 units ASDIRECTED PRN Administration Other Sodium Chloride 10 ml 11/19/20 21:13 11/19/20 16:30 Saline Flush FLUSH 10 ml ASDIRECTED PRN Administration Other Discontinued Medications Generic Name Dose Route Start Last Admin Trade Name Dora PRN Reason Stop Dose Admin Hydromorphone HCl Confirm 11/19/20 18:15 11/19/20 21:14 Dilaudid Administered 11/19/20 18:16 Not Given Dose 2 mg .ROUTE .STK-MED ONE Hydromorphone HCl 2 mg 11/19/20 18:31 11/19/20 18:15 Dilaudid IVPUSH 11/19/20 18:32 2 mg ONETIME ONE Administration Departure - Departure Time of Disposition: 20:00 Disposition: DC/Tfer to [facility] 02 Clinical Impression: S/P AVR (aortic valve replacement), CHF, Congestive heart failure - Discharge Information *PRESCRIPTION DRUG MONITORING PROGRAM REVIEWED*: No *COPY OF PRESCRIPTION DRUG MONITORING REPORT IN PATIENT CAROL: No - Problem List & Annotations (1) S/P AVR (aortic valve replacement) Status: Acute Priority: Medium Current Visit: No (2) Shortness of breath SNOMED Code(s): 004745932 Code(s): R06.02 - SHORTNESS OF BREATH Status: Acute Priority: Medium Current Visit: Yes Onset Date: ~11/19/20 - Problem List Review Problem List Initiated/Reviewed/Updated: No - My Orders Last 24 Hours: My Active Orders 11/19/20 16:59 EKG Documentation Completion [RC] ASDIRECTED 11/19/20 21:11 Heparin Sodium [Heparin Lock Flush 100 Units/ML] 500 units FLUSH ASDIRECTED PRN 11/19/20 21:13 Sodium Chloride 0.9% [Saline Flush] 10 ml FLUSH ASDIRECTED PRN - Assessment/Plan Last 24 Hours: My Active Orders 11/19/20 16:59 EKG Documentation Completion [RC] ASDIRECTED 11/19/20 21:11 Heparin Sodium [Heparin Lock Flush 100 Units/ML] 500 units FLUSH ASDIRECTED PRN 11/19/20 21:13 Sodium Chloride 0.9% [Saline Flush] 10 ml FLUSH ASDIRECTED PRN
[2020-11-19] MEDS: HYDROmorphone 2 MG/ML SDV ONE ×2 (18:30→21:14)
[2020-11-19] MEDS ORDERED: HYDROmorphone 2 MG/ML SDV IVPUSH ONE (18:31)
[2020-11-19] MEDS ORDERED: Sodium Chloride 0.9% 10 ML Syringe FLUSH PRN (21:13)
[2020-11-19 21:32] VITALS: BP 106/67; PULSE 120
== END 2020-11-19 18:50 ==
LOC: LB.ED 15:16
DX: I11.0 Hypertensive heart disease with heart failure (principal); I50.9 Heart failure, unspecified; I25.2 Old myocardial infarction; K21.9 Gastro-esophageal reflux disease without esophagitis; M19.90 Unspecified osteoarthritis, unspecified site; E11.9 Type 2 diabetes mellitus without complications; E66.9 Obesity, unspecified; Z86.16 Personal history of COVID-19; Z95.4 Presence of other heart-valve replacement; Z88.8 Allergy status to other drugs, medicaments and biological substances; Z79.82 Long term (current) use of aspirin; Z79.01 Long term (current) use of anticoagulants; Z79.4 Long term (current) use of insulin; Z79.899 Other long term (current) drug therapy
CPT/HCPCS: 36415; 80053; 83605; 84484; 85025; 85379; 85610; 93005; 96374; 99285; 99285-25; A0425; A0429; J1170; J1642

== ENCOUNTER 2020-12-10 16:24 | Emergency (ER) | payer BC, MEDICARE ==
[2020-12-10] MEDS ORDERED: Sodium Chloride 0.9% 1,000 ML IV SCH (17:45)
[2020-12-10] MEDS ORDERED: Potassium Chloride 40 MEQ/20 ML SDV IV STA (17:56)
[2020-12-10] MEDS: Potassium Chloride Riders 10 MEQ in Premix Bag 1 BAG IV SCH ×2 (18:04→18:58)
[2020-12-10] MEDS ORDERED: Potassium Chloride Riders 100 ML ONE (18:05)
[2020-12-10 18:45] VITALS: BP 129/71; PULSE 110
[2020-12-10] MEDS ORDERED: Sodium Chloride 0.45% with KCl 1,000 ML ONE (19:32)
[2020-12-10] MEDS ORDERED: Sodium Chloride 0.45% with KCl 1,000 ML IV SCH (19:45)
[2020-12-10] MEDS ORDERED: HYDROmorphone 2 MG/ML SDV IVPUSH ONE (20:08)
[2020-12-10] MEDS ORDERED: HYDROmorphone 2 MG/ML SDV ONE (20:13)
[2020-12-10] MEDS ORDERED: Ondansetron 4 MG/2 ML SDV IVPUSH ONE (20:15)
[2020-12-10] MEDS ORDERED: Ondansetron 4 MG/2 ML SDV ONE (20:23)
--- NOTE | 2020-12-10 20:52 | ER ---
REASON FOR EMERGENCY ROOM VISIT: Chest pain and chills. HISTORY: This unfortunate 60-year-old woman has had a very eventful past 4 months. She states for the past 5 days, she has felt "crappy" with low anterior and bilateral lower chest pain that sounds pleuritic in nature. She has not had any increased cough and she has felt chills and thought she may have had a fever, but none has been documented. She was on antibiotics for sepsis through a PICC line and that had been discontinued 2 days prior to the onset of these symptoms. She was seen by Dr. León on Friday who thought she was doing okay and seen again on by visiting cement sprayer helper from [place]. She was having a similar kind of pain at this time. Apparently, there was no great concern and she went home, Friday and Friday, yesterday and the day before, she went to [place] to go shopping with her ; however, she stayed in the hotel room and slept most of the day on both days. Today she has complained of a mild headache all day and the same chest pain has been bothering her. It is definitely pleuritic in nature. She has been experiencing chills. The chest pain seems to be somewhat worse. Her history is extremely eventful in that she was diagnosed with COVID-19 in August. She was hospitalized for 6 days in [place] and was discharged for 2 days only to be rehospitalized for another 15 days. She was never intubated, but was obviously ill enough to be in the hospital for that length of time. Following discharge, she was once again fairly promptly admitted for another 6 days this time with sepsis in early September. She was diagnosed with endocarditis and pneumonia and eventually she underwent aortic valve replacement with a porcine valve on 10/10. She did reasonably well following this and was transferred to a swing bed here in [place] for 1 week only to bounce back to [place] for yet another episode of sepsis and she was hospitalized that time for 10 days. She has been on daptomycin and that course of therapy was discontinued on Friday. Two days later, she began the recent symptoms of pleuritic chest pain and chills. She did not have any nausea or vomiting or diarrhea until she got to the ER this afternoon when she had 1 episode of emesis and some nausea that has resolved. PAST MEDICAL HISTORY: Significant for 1. Hypertension. 2. Sleep apnea. 3. GERD. 4. Arthritis. 5. Fibromyalgia. 6. Restless legs syndrome. 7. Type 2 diabetes. 8. Obesity. 9. And the other more recent events as noted above. MEDICATIONS: Reviewed. Please see electronic medical record. They include 1. Tramadol. 2. Atorvastatin. 3. Warfarin. 4. Venlafaxine. 5. Mirapex. 6. Potassium chloride. 7. Pantoprazole. 8. Nitroglycerin. 9. Mirtazapine. 10.Metoprolol succinate. 11.Melatonin. 12.Losartan. 13.Insulin. 14.Gabapentin. 15.Ferrous sulfate. 16.Cyclobenzaprine. 17.Bumex. 18.Aspirin. ALLERGIES: TO LISINOPRIL. PHYSICAL EXAMINATION: GENERAL: She is a pleasant lady who appears flushed. VITAL SIGNS: Her temperature is 37.9, heart rate is 119, blood pressure 117/50, respiratory rate initially was 36 and later on it ran between 17 and 21, and O2 sats 96% on 3 L of O2 per nasal cannula. HEENT: Her face is flushed. She has no scleral icterus or conjunctivitis. Oropharynx is normal. NECK: Supple. No JVD. CHEST: She has slightly decreased breath sounds on the left compared to the right. No rhonchi, wheezes, or rales were detected. CARDIAC: Slight soft systolic murmur is heard. ABDOMEN: Obese, soft, and nontender. No hepatosplenomegaly. EXTREMITIES: Minimal bilateral edema. Normal pulses. NEUROLOGIC: Moves all 4 extremities. No facial asymmetry. LABORATORY DATA: CBC shows that her white count is elevated at 13,200. Her hemoglobin is 12.6. Her platelet count is 386. The PT is 13.5 with an INR of 1.3. The D-dimer is markedly elevated at 4030. Her CMP shows that she has a sodium 131 with a potassium of 2.9, chloride is 93, CO2 is 30, BUN is 17, but the creatinine is 1.37. Estimated GFR is 39. Her glucose is 311. Lactic acid is elevated at 4.1, calcium is 10.2. BNP is elevated at 1103. The troponin 1 is normal at less than 0.017. A SARS-CoV-2 RNA rapid antigen was negative. Chest x-ray does show no infiltrate and poor inspiratory effort, but there is what appears to be a small left pleural effusion. EKG shows sinus tachycardia, no definite acute changes and possible left atrial enlargement. Her rate is 119. IMPRESSION: Pleuritic chest pain as described above with chills, rule out pulmonary embolism versus rule out sepsis. PLAN: In light of her history over the past 4 months and with the possibility of her and in light of her impaired renal function, she is going to need probably a CT scan to exclude a pulmonary embolus. She should probably be hydrated first and we have initiated that. She was given 1 L of normal saline. Additionally, her hypokalemia is being treated with KCl cocktails intravenously. I spoke to Dr. Christy, the hospitalist at [facility] in [place], who agreed to accept her in transfer after discussing with the patient. This was all discussed with the patient including the recommendation that she be transferred to [place]. She understands the risks inherent with this. All questions were answered and she agrees with this plan. ROBERTH /[id number]
--- NOTE | 2020-12-11 07:22 | CR ---
Date of Service: 12/10/20 Clinical Data: CHEST PAIN AP CHEST: Comparison is made to a prior exam dated 11/18/20. The left subclavian catheter is unchanged in position. The heart remains enlarged, unchanged. The patient has taken a very poor inspiration. There is increased density in the left lung base consistent with basilar atelectasis or infiltrate. Pneumonia should be considered. There is blunting of the left costophrenic angle consistent with a small left pleural effusion. The right lung is clear. No pneumothorax. [id number] [facility]
== END 2020-12-10 21:07 ==
LOC: LB.ED 16:24
DX: R07.81 Pleurodynia (principal); D72.829 Elevated white blood cell count, unspecified; R79.1 Abnormal coagulation profile; R74.01 Elevation of levels of liver transaminase levels; R00.0 Tachycardia, unspecified; I10 Essential (primary) hypertension; K21.9 Gastro-esophageal reflux disease without esophagitis; M19.90 Unspecified osteoarthritis, unspecified site; E11.9 Type 2 diabetes mellitus without complications; E66.9 Obesity, unspecified; Z68.41 Body mass index [BMI] 40.0-44.9, adult; Z79.899 Other long term (current) drug therapy; Z79.01 Long term (current) use of anticoagulants; Z79.4 Long term (current) use of insulin; Z79.82 Long term (current) use of aspirin; Z20.822 Contact with and (suspected) exposure to COVID-19
CPT/HCPCS: 36415; 71045; 80053; 83605; 83880; 84484; 85025; 85379; 85610; 93005; 96365; 96366; 96375; 96376; 99285; 99285-25; A0425; A0429; J1170; J2405; J3480; J7030; U0002

== ENCOUNTER 2022-06-14 12:03 | Emergency (ER) | payer BC, MEDICARE ==
[2022-06-14] MEDS ORDERED: Acetaminophen/HYDROcodone 325-5 MG Tab PO ONE (12:30)
[2022-06-14] MEDS ORDERED: Acetaminophen/HYDROcodone 325-5 MG Tab ONE (13:16)
[2022-06-14] MEDS ORDERED: Orphenadrine 60 MG/2 ML Inj IM ONE (14:48)
[2022-06-14] MEDS ORDERED: Orphenadrine 60 MG/2 ML Inj ONE (15:01)
== END 2022-06-14 15:43 | disposition home or self-care (01) ==
LOC: LB.ED 12:03
DX: M79.10 Myalgia, unspecified site (principal); G44.209 Tension-type headache, unspecified, not intractable; M54.50 Low back pain, unspecified; G89.29 Other chronic pain; I10 Essential (primary) hypertension; K21.9 Gastro-esophageal reflux disease without esophagitis; I25.2 Old myocardial infarction; E11.9 Type 2 diabetes mellitus without complications; E66.9 Obesity, unspecified; Z88.8 Allergy status to other drugs, medicaments and biological substances; Z79.899 Other long term (current) drug therapy; Z20.822 Contact with and (suspected) exposure to COVID-19
CPT/HCPCS: 87635; 96372; 99284; A9270; J2360; U0002

== ENCOUNTER 2025-02-04 13:14 | Inpatient (IN) | payer MEDICARE, BC ==
[2025-02-04] MEDS: Sodium Chloride 0.9% 1,000 ML IV ONE ×2 (14:08→16:59)
[2025-02-04] MEDS: Ondansetron 4 MG/2 ML SDV IVPUSH ONE (14:08)
[2025-02-04 14:16] LABS: BASOPHILS ABSOLUTE AUTO 0.01 K/uL (0.02-0.10); BASOPHILS PERCENT AUTO 0.2 % (0.0-0.5); EOSINOPHILS ABSOLUTE AUTO 0.08 K/uL (0.04-0.40); EOSINOPHILS PERCENT AUTO 1.3 % (1.0-5.0); HEMATOCRIT 39.6 % (37.0-47.0); HEMOGLOBIN 13.1 g/dL (11.5-16.5); LYMPHOCYTES ABSOLUTE AUTO 0.94 K/uL (1.50-4.00); LYMPHOCYTES PERCENT AUTO 15.1 % (20.0-40.0); MEAN CORPUSCULAR HEMOGLOBIN 27.9 pg (27.0-32.0); MEAN CORPUSCULAR HGB CONC 33.1 g/dL (31.0-35.0); MEAN CORPUSCULAR VOLUME 84 fL (76-96); MEAN PLATELET VOLUME 11.2 fL (6.0-10.0); MONOCYTES ABSOLUTE AUTO 0.65 K/uL (0.20-0.80); MONOCYTES PERCENT AUTO 10.5 % (3.0-10.0); NEUTROPHILS ABSOLUTE AUTO 4.53 K/uL (2.00-7.50); NEUTROPHILS PERCENT AUTO 72.9 % (45.0-70.0); PLATELET COUNT,PLT 227 K/uL (150-500); WHITE BLOOD CELL COUNT,WBC 6.2 K/uL (4.0-11.0)
[2025-02-04 14:40] LABS: APPEARANCE,URINE CLEAR (CLEAR); BILIRUBIN,URINE NEGATIVE (NEGATIVE); COLOR,URINE YELLOW; GLUCOSE,URINE NEGATIVE (NEGATIVE); KETONES,URINE NEGATIVE (NEGATIVE); PH,URINE 5.5 (5.0-8.0); PROTEIN,URINE NEGATIVE (NEGATIVE)
[2025-02-04 14:41] LABS: LEUKOCYTE ESTERASE,URINE NEGATIVE (NEGATIVE); NITRITE,URINE NEGATIVE (NEGATIVE); OCCULT BLOOD,URINE NEGATIVE (NEGATIVE); RBC,URINE 0-5 /HPF; SQUAMOUS EPITHELIAL CELLS,UR FEW /HPF; UROBILINOGEN,URINE 0.2 E.U./dL (0.2-1.0); WBC,URINE 0-5 /HPF
[2025-02-04 14:44] LABS: TROPONIN I HIGH SENSITIVITY 14.6 pg/ml (<=60.4)
[2025-02-04 14:45] LABS: A/G RATIO 1.3 (0.8-2.0); ALBUMIN 3.3 g/dL (3.4-5.0); ANION GAP 12.4 mmol/L (5.0-15.0); BILIRUBIN TOTAL 0.6 mg/dL (0.0-1.0); BUN/CREATININE RATIO 15.1 (6-25); CALCIUM 9.7 mg/dL (8.5-10.1); CARBON DIOXIDE,CO2 27.3 mmol/L (21.0-32.0); CREATININE 1.06 mg/dL (0.55-1.02); EST CRCL DRUG DOSING (CG) 44.94 mL/min; POTASSIUM,K 4.7 mmol/L (3.5-5.1); PROTEIN TOTAL,TP 5.9 g/dL (6.4-8.2); TSH ULTRASENSITIVE 7.451 uIU/mL (0.358-3.740)
[2025-02-04 14:58] LABS: PTT,PARTIAL THROMBOPLSTIN TIME 25.2 SECONDS (24.4-33.2)
[2025-02-04] MEDS: Ondansetron 4 MG/2 ML SDV ONE (15:07)
[2025-02-04 15:13] LABS: PROTHROMBIN TIME 10.7 sec (9.0-11.5)
[2025-02-04] MEDS ORDERED: Nitroglycerin 0.4 MG Tab.SL SL PRN (15:34)
[2025-02-04] MEDS: Ondansetron 4 MG/2 ML SDV IVPUSH SCH (16:57)
[2025-02-04] MEDS ORDERED: Ondansetron 4 MG/2 ML SDV IVPUSH PRN (20:16)
[2025-02-04] MEDS: PRAMIPEXOLE DI HCL 0.5 MG PO SCH (20:26)
[2025-02-04] MEDS: Pramipexole 0.125 MG Tab PO SCH (22:03)
[2025-02-04] MEDS: Mirtazapine 15 MG Tab PO SCH (22:04)
[2025-02-04] MEDS: Potassium Chloride 20 MEQ Tab.ER PO SCH (22:04)
[2025-02-04] MEDS: Ferrous Sulfate 325 MG Tab PO SCH (22:04)
[2025-02-04] MEDS: Venlafaxine 150 MG Cap.ER PO SCH (22:04)
[2025-02-04] MEDS: atorvaSTATin 20 MG Tab PO SCH (22:04)
[2025-02-04] MEDS: Magnesium Oxide 400 MG Tab PO SCH (22:04)
[2025-02-04] MEDS: traMADol 50 MG Tab PO PRN (22:51)
[2025-02-05] MEDS: Sodium Chloride 0.9% 1,000 ML IV SCH (00:55)
[2025-02-05] MEDS: Cyclobenzaprine 10 MG Tab PO PRN (04:02)
[2025-02-05] MEDS: Pantoprazole 40 MG Tab.CR PO SCH (07:20)
[2025-02-05] MEDS: Levothyroxine 25 MCG Tab PO SCH (07:20)
[2025-02-05] MEDS: Losartan 25 MG Tab PO SCH (07:49)
[2025-02-05] MEDS: Aspirin 325 MG Tab.EC PO SCH (07:50)
[2025-02-05] MEDS: Enoxaparin 40 MG/0.4 ML Syringe SUBCUT SCH (07:50)
[2025-02-05] MEDS: Metoprolol Succinate 50 MG Tab.ER PO SCH (07:50)
[2025-02-05] MEDS: Non-Formulary Medication 1 Each (Cholecalciferol (Vitamin D3) [Vitamin D3] 125 MCG Capsule PO SCH (07:54)
[2025-02-05 08:23] LABS: BASOPHILS ABSOLUTE AUTO 0.01 K/uL (0.02-0.10); BASOPHILS PERCENT AUTO 0.2 % (0.0-0.5); EOSINOPHILS ABSOLUTE AUTO 0.09 K/uL (0.04-0.40); EOSINOPHILS PERCENT AUTO 1.8 % (1.0-5.0); HEMATOCRIT 39.9 % (37.0-47.0); LYMPHOCYTES ABSOLUTE AUTO 0.74 K/uL (1.50-4.00); LYMPHOCYTES PERCENT AUTO 15.1 % (20.0-40.0); MEAN CORPUSCULAR HEMOGLOBIN 28.1 pg (27.0-32.0); MEAN CORPUSCULAR HGB CONC 32.6 g/dL (31.0-35.0); MEAN CORPUSCULAR VOLUME 86 fL (76-96); MEAN PLATELET VOLUME 11.7 fL (6.0-10.0); MONOCYTES ABSOLUTE AUTO 0.44 K/uL (0.20-0.80); NEUTROPHILS ABSOLUTE AUTO 3.61 K/uL (2.00-7.50); NEUTROPHILS PERCENT AUTO 73.9 % (45.0-70.0); PLATELET COUNT,PLT 206 K/uL (150-500); RED BLOOD CELL COUNT 4.63 M/uL (3.80-5.80); WHITE BLOOD CELL COUNT,WBC 4.9 K/uL (4.0-11.0)
[2025-02-05 08:29] LABS: ANION GAP 9.5 mmol/L (5.0-15.0); BUN/CREATININE RATIO 12.6 (6-25); CALCIUM 9.1 mg/dL (8.5-10.1); CARBON DIOXIDE,CO2 29.7 mmol/L (21.0-32.0); CREATININE 0.95 mg/dL (0.55-1.02); EST CRCL DRUG DOSING (CG) 50.14 mL/min; POTASSIUM,K 4.2 mmol/L (3.5-5.1)
[2025-02-05] MEDS: Acetaminophen 500 MG Tab PO PRN (16:49)
[2025-02-05] MEDS: Pramipexole 0.125 MG Tab PO ONE (20:38)
[2025-02-06 07:21] VITALS: PULSE 64
[2025-02-06 08:16] LABS: BASOPHILS ABSOLUTE AUTO 0.01 K/uL (0.02-0.10); BASOPHILS PERCENT AUTO 0.2 % (0.0-0.5); EOSINOPHILS ABSOLUTE AUTO 0.08 K/uL (0.04-0.40); EOSINOPHILS PERCENT AUTO 1.3 % (1.0-5.0); HEMOGLOBIN 13.1 g/dL (11.5-16.5); LYMPHOCYTES PERCENT AUTO 16.2 % (20.0-40.0); MEAN CORPUSCULAR HEMOGLOBIN 27.9 pg (27.0-32.0); MEAN CORPUSCULAR HGB CONC 32.8 g/dL (31.0-35.0); MEAN CORPUSCULAR VOLUME 85 fL (76-96); MEAN PLATELET VOLUME 11.7 fL (6.0-10.0); MONOCYTES ABSOLUTE AUTO 0.59 K/uL (0.20-0.80); MONOCYTES PERCENT AUTO 9.6 % (3.0-10.0); NEUTROPHILS ABSOLUTE AUTO 4.48 K/uL (2.00-7.50); NEUTROPHILS PERCENT AUTO 72.7 % (45.0-70.0); PLATELET COUNT,PLT 178 K/uL (150-500); RED BLOOD CELL COUNT 4.69 M/uL (3.80-5.80); RED CELL DISTRIBUTION WIDTH 13.7 % (11.0-16.0); WHITE BLOOD CELL COUNT,WBC 6.2 K/uL (4.0-11.0)
[2025-02-06 08:45] LABS: ANION GAP 7.3 mmol/L (5.0-15.0); BUN/CREATININE RATIO 14.9 (6-25); CALCIUM 9.1 mg/dL (8.5-10.1); CARBON DIOXIDE,CO2 29.6 mmol/L (21.0-32.0); CREATININE 0.87 mg/dL (0.55-1.02); EST CRCL DRUG DOSING (CG) 54.75 mL/min; POTASSIUM,K 3.9 mmol/L (3.5-5.1)
[2025-02-06] MEDS ORDERED: TIRZEPATIDE 10 MG/0.5 ML SQ SCH (12:30)
[2025-02-06 13:05] VITALS: BP 161/73
[2025-02-06] MEDS ORDERED: atorvaSTATin 40 MG Tab PO SCH (20:00)
[2025-02-06] MEDS ORDERED: traZODone 100 MG Tab PO PRN (21:00)
[2025-02-07] MEDS ORDERED: Venlafaxine 75 MG Cap.ER PO SCH (08:00)
[2025-02-07] MEDS ORDERED: buPROPion 300 MG Tab.ER PO SCH (08:00)
[2025-02-09 16:48] LABS: THYROXINE, TOTAL T4 6.16 ug/dL (4.50-11.70)
== END 2025-02-06 13:06 | disposition home or self-care (01) | DRG 948 ==
LOC: LB.ED 13:14 → LB.MS 15:33
PROVIDERS: ADMIT Physician Assistant; ATTEND Family Medicine
DX: R53.1 Weakness (principal); Z68.41 Body mass index [BMI] 40.0-44.9, adult; I10 Essential (primary) hypertension; E11.9 Type 2 diabetes mellitus without complications; R25.1 Tremor, unspecified; E03.9 Hypothyroidism, unspecified; J30.9 Allergic rhinitis, unspecified; I25.2 Old myocardial infarction; G47.30 Sleep apnea, unspecified; K21.9 Gastro-esophageal reflux disease without esophagitis; M19.90 Unspecified osteoarthritis, unspecified site; M54.9 Dorsalgia, unspecified; G89.29 Other chronic pain; M79.7 Fibromyalgia; G43.909 Migraine, unspecified, not intractable, without status migrainosus; I95.9 Hypotension, unspecified; G25.81 Restless legs syndrome; F41.9 Anxiety disorder, unspecified; F32.A Depression, unspecified; E86.0 Dehydration; E66.9 Obesity, unspecified; M85.80 Other specified disorders of bone density and structure, unspecified site; D64.9 Anemia, unspecified; Z79.82 Long term (current) use of aspirin; Z88.8 Allergy status to other drugs, medicaments and biological substances; Z95.2 Presence of prosthetic heart valve; Z79.899 Other long term (current) drug therapy; Z86.16 Personal history of COVID-19; Z98.890 Other specified postprocedural states; Z90.710 Acquired absence of both cervix and uterus
CPT/HCPCS: 36415; 71045; 80053; 81001; 83605; 83735; 83880; 84443; 84484; 85025; 85610; 85730; 93005; 96361; 96374; 99285; J2405; J7030; 70450; 80048; 82947; 84436; 93010; 99222; 99232; 99238; A9270-GY; J1650